=== PATIENT | male | born 1945 | race Caucasian/White ===

== ENCOUNTER 2018-02-05 08:32 | Inpatient (IN) ==
[2018-02-05] MEDS ORDERED: NS 3,000 ML ONE (09:05)
[2018-02-05] MEDS ORDERED: NS 1,000 ML IV ONE ×2 (09:10→10:34)
[2018-02-05 09:11] LABS: BE -0.1 mmoll (-3.0-3.0); BLOOD TYPE ARTERIAL; HCO3-(ACT) 24.8 mmoll (20.0-26.0); METHB 0.9 % (0.0-1.5); O2(CT) 15.4 mL/dL (15.0-23.0); PCO2(98.6) 44 mmHg (35-45); PO2(98.6) 77 mmHg (60-100); SAMPLE BLOOD; SAO2 97.7 % (95.0-100.0); THB 11.5 g/dL (11.5-17.4); pH(98.6) 7.37 (7.35-7.45)
[2018-02-05 09:12] LABS: MODALITY COOL AEROSOL
[2018-02-05 09:12] LABS: BASO# 0.01 X1000 (0.0-0.2); BASO% 0.1 % (0.0-0.8); HEMATOCRIT 39.9 % (42.0-52.0); HEMOGLOBIN 12.4 g/dL (14.0-18.0); IMM GRAN# 0.03 X1000 (0.0-0.04); IMM GRAN% 0.4 % (0.0-0.5); LYMPH# 0.52 X1000 (1.2-3.4); LYMPH% 6.6 % (20.5-51.1); MCHC 31.1 g/dL (33-37); MCV 102.8 FL (81-99); MONO# 0.33 X1000 (0.11-0.59); MONO% 4.2 % (1.7-9.3); NEUT# 7.02 X1000 (1.4-6.5); NEUT% 88.7 % (42.2-75.2); PLT 119 X1000 (130-400); RBC 3.88 XMIL (4.7-6.1); WBC 7.91 X1000 (4.8-10.8)
[2018-02-05 09:15] LABS: ALLEN TEST NO
--- NOTE | 2018-02-05 09:42 | Diag Imaging Result Doc PS360 ---
EXAM: CHEST-1 VIEW INDICATION: dislodged tracheostomy TECHNIQUE: One view COMPARISON: 01/28/2018 FINDINGS: The tracheostomy tube is in approximately stable position with the tip projecting over the trachea in the expected position. Fibrotic changes +/- atelectasis is noted at the lower lung zones bilaterally, more prominent on the left, stable. There is no well-defined pleural fluid collection or pneumothorax. Cardiac silhouette is borderline to mildly prominent but stable. IMPRESSION: Stable chest as compared to the previous study including the tracheostomy tube, which is in the expected position. Electronically signed by Zacarias Beverly 02/05/2018 9:40 AM
[2018-02-05] MEDS ORDERED: ZOSYN 3.375 GM in NS 50 ML IV ONE (11:25)
[2018-02-05] MEDS ORDERED: VANCOMYCIN 1 GM/NS 1 GM/250 ML IVPB IV ONE (11:26)
[2018-02-05 11:43] LABS: ALB/GLOB RATIO 1.2; ALBUMIN 2.6 g/dL (3.5-5.0); CREATININE 2.1 mg/dL (0.7-1.2); MAGNESIUM 1.4 mg/dL (1.5-2.7); POTASSIUM 4.3 mmol/L (3.5-5.1); TOTAL BILIRUBIN 0.66 mg/dL (0.20-1.00); TOTAL PROTEIN 4.8 g/dL (6.3-8.3)
[2018-02-05 11:46] LABS: INR 1.48; PROTIME 19.1 Seconds (11.0-16.0)
--- NOTE | 2018-02-05 12:17 | PROVIDER DOCUMENTATION ---
This chart was entered by Babita Montilla Scribe, acting as scribe for Benedict Paz MD. 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 Hx of larygneal cancer. Review of Systems - Adult - REVIEW OF SYSTEMS - ADULT Constitutional: denies: chills, fever, fatique Eyes: reports: no symptoms reported Ears, Nose, Mouth & Throat: reports: no symptoms reported Cardiovascular: denies: chest pain, irregular heart rate, orthopnea Respiratory: reports: see HPI, shortness of breath. denies: chronic cough, cough Gastrointestinal: denies: abdominal pain, diarrhea, nausea, vomiting Genitourinary: reports: no symptoms reported Musculoskeletal: reports: no symptoms reported Integumentary: reports: no symptoms reported Neurological: reports: no symptoms reported Psychiatric: reports: no symptoms reported Endocrine: reports: no symptoms reported Hematologic/Lymphatic: reports: no symptoms reported Allergic/Immunologic: reports: no symptoms reported All Other Systems: Reviewed and Negative Past History - Adult - PAST MEDICAL HISTORY-ADULT Review of Records: reports: Nursing Assessment Review, Medications Reviewed Cardiovascular: reports: CHF, HTN, [place] Respiratory: reports: cancer Neurological: reports: TIA - PRIOR SURGERIES/PROCEDURES Surgical/Procedure History: reports: cholecystectomy, other (tracheostomy placement) - IMMUNIZATION STATUS Childhood Immunizations: See Nurse Assessment Flu Vaccine: See Nurse Assessment - SOCIAL HISTORY Smoking: other (non applicable) Physical Exam-General - PHYSICAL EXAM-ADULT Initial Vital Signs Reviewed: Yes - CONSTITUTIONAL General Appearance: alert, moderate distress, thin. negative: appears well - EYES Eyes: PERRL/EOMI - NECK Neck: other (multiple deformities of the neck, open stoma with yellow green sputum) - RESPIRATORY Respiratory: decreased breath sounds, other (bilateral coarse breath sounds) - CARDIOVASCULAR Cardiovascular: regular rate, rhythm - GASTROINTESTINAL (ABDOMEN) Abdominal Exam: non tender, soft, no organomegaly - GENITOURINARY Male Genitalia: other (right sided hernia inguinal-scrotal) - MUSCULOSKELETAL Extremity: swelling (bilateral lower ext edema trace), other (bilateral upper ext spaticisty) - SKIN Integumentary: other (chronic erythematous changes in lower extremities) - NEUROLOGIC Neurologic: negative: horseshoer II-XII nml as tested, grossly normal - PSYCHIATRIC Psych/Mental Status: other (alert non verbal) Progress - PLAN OF CARE/RESULTS Progress/Plan/Lab Results: Vital Signs - 8 hr 02/05/18 08:41 02/05/18 09:00 02/05/18 09:10 Temperature 98.7 F Pulse Rate 101 H 96 H 95 H Respiratory Rate 21 22 16 Blood Pressure 203/175 68/42 71/44 O2 Sat by Pulse Oximetry 99 100 94 L Laboratory Results - last 24 hr 02/05/18 02/05/18 09:00 09:05 WBC 7.91 RBC 3.88 L Hgb 12.4 L Hct 39.9 L MCV 102.8 H MCH 32.0 H MCHC 31.1 L RDW Std Deviation 17.0 H Plt Count 119 L MPV 12.0 H Immature Gran % (Auto) 0.4 Neut % (Auto) 88.7 H Lymph % (Auto) 6.6 L [place] % (Auto) 4.2 Eos % (Auto) 0.0 Baso % (Auto) 0.1 Immature Gran # (Auto) 0.03 Neut # (Auto) 7.02 H Lymph # (Auto) 0.52 L [place] # (Auto) 0.33 Eos # (Auto) 0.00 Baso # (Auto) 0.01 Specimen Type ARTERIAL Sample Site R BRACHIAL pH 7.37 pCO2 44 pO2 77 HCO3 24.8 Base Excess -0.1 Oxyhemoglobin 95.0 ABG O2 Sat (Calculated) 15.4 ABG O2 Saturation 97.7 ABG Carboxyhemoglobin 1.90 ABG Methemoglobin 0.9 Len Test NO A-a O2 Difference 118.0 Total Hemoglobin 11.5 Lactate 1.00 Liter Flow 8.0 Blood Gas Modality COOL AEROSOL FiO2 % 35.0 Orders Category Date Time Status Misc. NRSG Communication Order DIRECTED Care 02/05/18 10:33 Active CHEST-1 VIEW [RAD] Stat Exams 02/05/18 08:33 Completed ABG [RESP] Routine Lab 02/05/18 09:05 Completed BLOOD CULTURE [BLDCUL] Stat Lab 02/05/18 10:50 Received CBC WITH ELECTRONIC DIFF [HEME] Stat Lab 02/05/18 09:00 Completed CK PROFILE [SP CHEM] Stat Lab 02/05/18 10:50 Received COMPREHENSIVE METABOLIC PANEL [CHEM] Stat Lab 02/05/18 10:50 Received LACTATE, PLASMA [CHEM] Stat Lab 02/05/18 10:50 Received MAGNESIUM [CHEM] Stat Lab 02/05/18 10:50 Received PRO B-NATRIURETIC PEPTIDE Stat Lab 02/05/18 10:50 Received PT [PROTIME WITH INR] [COAG] Stat Lab 02/05/18 10:50 Received PTT [COAG] Stat Lab 02/05/18 10:50 Received SPUTUM CULTURE WITH GRAM STAIN [RM] Stat Lab 02/05/18 11:26 Uncollected TROPONIN T Stat Lab 02/05/18 09:29 Ordered 0.9% Sodium Chloride Inj [Ns] 1,000 ml Med 02/05/18 09:05 Discontinued .ROUTE As Directed 0.9% Sodium Chloride Inj [Ns] 1,000 ml Med 02/05/18 09:10 Discontinued IV 999 mls/hr 0.9% Sodium Chloride Inj [Ns] 1,000 ml Med 02/05/18 10:34 Active IV 999 mls/hr Piperacillin/Tazobactam [Zosyn] 3.375 gm Med 02/05/18 11:25 Active 0.9% Sodium Chloride Inj [Ns] 50 ml IV NOW Vancomycin 1 gm/Ns Med 02/05/18 11:26 Active 1 gm in 250 ml IV NOW EKG [EKG] Stat Ther 02/05/18 08:34 Ordered Result Diagrams: 02/05/18 09:00 02/05/18 10:50 - REASSESSMENT Reassessment #1 Time Reassessed: 08:40 (Number 6 trach tube inserted with no complications. BP noted to decrease pt started on IV fluids.) Status: other Reassessment #2 Time Reassessed: 09:20 Status: worsening (patient noted hypotensive with SBP of 70; unable to get adequate peripheral IV access ; multiple surgical deformities in around anterior and lateral neck, as such a femoral IV access to be attempted) - CONSULTS/PCP/HOSPITALIST Notification #1 *Consult/PCP/Hospitalist*: RICK Patel/Dr. Baldwin Time Discussed: 12:10 Consult Disposition: Admit Procedures - CENTRAL LINE Consent Form Signed?: Yes Time-Out Verification Completed?: Yes Central Line Lumen: single Central Line Procedure Prep: Kit Utilized Patient Position (To prevent Air Embolism): Trendelenburg (SC/IJ) Central Line Position: femoral (L) Ultrasound Guided?: No Hat, mask, sterile gown, & sterile gloves worn by physician?: Yes Site scrubbed vigorously for 30 seconds? (Groin: 2 min): Yes Anesthetic: 1%, Lidocaine/Xylocaine Post Procedure: Sutured in place Complications: none Departure - Departure Date of Disposition Decision: 02/05/18 Time of Disposition Decision: 11:39 DIAGNOSIS: Tracheostomy complication Qualifiers: Tracheostomy complication: unspecified Qualified Code(s): J95.00 - Unspecified tracheostomy complication Hypotension Qualifiers: Hypotension type: unspecified hypotension type Qualified Code(s): I95.9 - Hypotension, unspecified Disposition: ADMITTED INPATIENT 09 Certified Medical Emergency: Emergent Condition: Critical Referrals and Follow-Ups: None,PCP [Primary Care Provider] - - Critical Care Note This patient required my direct & personal management of CC.: Yes Total Time (mins): 40 Critical Care Statement: This patient required my direct personal management to treat or rule out processes, the absence of which, could potentiallly result in sudden, clinically significant life or limb threatening deterioration. Attestation - Physician/ NATALI Attestation Patient care was provided by Advanced Practice Provider:: No The physician spent face to face time with patient:: Yes Advanced Practice Provider documentation review:: Supervising physician onsite and consulted in the evaluation and care of this patient. The physician did have a face to face encounter with the patient. This chart was documented by the indicated scribe, (Babita Montilla Scribe) and accurately reflects the services I performed and decisions made by me, Benedict Paz MD, as attested by the provider's signature.
[2018-02-05] MEDS: LEVOPHED 8 MG in D5 1/2 NS 250 ML IV SCH (12:43)
[2018-02-05] MEDS ORDERED: MAGNESIUM SULFATE 2 GM/S.W.I. 2 GM/50 ML IVPB IV ONE (13:21)
[2018-02-05] MEDS ORDERED: DUONEB (A & A) INH PRN (13:21)
[2018-02-05 14:00] LABS: URINE SOURCE CATH
[2018-02-05 14:11] LABS: BILIRUBIN URINE NEGATIVE (NEGATIVE); BLOOD URINE NEGATIVE (NEGATIVE); COLOR YELLOW; GLUCOSE URINE NEGATIVE (NEGATIVE); KETONE URINE NEGATIVE (NEGATIVE); LEUKOCYTES URINE NEGATIVE (NEGATIVE); NITRITE URINE NEGATIVE (NEGATIVE); PH URINE 5.5; PROTEIN URINE 30 mg/dL (NEGATIVE); SP GRAVITY URINE 1.015; TURBIDITY URINE CLEAR (CLEAR); UROBILINOGEN URINE NORMAL (NORMAL)
[2018-02-05] MEDS ORDERED: NS 1,000 ML ONE (14:12)
[2018-02-05 14:13] LABS: UR EPITHELIAL CELLS <10 /HPF (<10); URINE BACTERIA NEGATIVE /HPF; URINE WBC <10 /HPF (<10)
[2018-02-05 14:19] LABS: URINE CASTS NONE SEEN; URINE CRYSTALS NONE SEEN; URINE SMALL ROUND CELLS NONE SEEN; URINE YEAST PRESENT
[2018-02-05] MEDS: PROTONIX IV SCH (14:19)
[2018-02-05 14:20] LABS: PROTEIN CREAT RATIO 0.4; UR PROT RANDOM 41.3 mg/dL
[2018-02-05 14:36] LABS: BASO# 0.01 X1000 (0.0-0.2); BASO% 0.1 % (0.0-0.8); EOS# 0.01 X1000 (0.0-0.7); EOS% 0.1 % (0.0-10.0); HEMATOCRIT 34.1 % (42.0-52.0); HEMOGLOBIN 10.7 g/dL (14.0-18.0); IMM GRAN# 0.02 X1000 (0.0-0.04); IMM GRAN% 0.2 % (0.0-0.5); LYMPH# 1.17 X1000 (1.2-3.4); LYMPH% 14.3 % (20.5-51.1); MCH 32.6 PG (27-31); MCHC 31.4 g/dL (33-37); MONO# 0.34 X1000 (0.11-0.59); MONO% 4.2 % (1.7-9.3); MPV 11.8 FL (7.4-10.4); NEUT# 6.63 X1000 (1.4-6.5); NEUT% 81.1 % (42.2-75.2); PLT 107 X1000 (130-400); RBC 3.28 XMIL (4.7-6.1); RDW 17.1 % (11.5-14.5); WBC 8.18 X1000 (4.8-10.8)
[2018-02-05] MEDS ORDERED: VANCOMYCIN IV PER PHARMACY MISC SCH (14:45)
[2018-02-05 14:53] LABS: HEMOGLOBIN A1C 5.4 % (4.8-6.0)
[2018-02-05 14:57] LABS: CALCIUM 8.1 mg/dL (8.8-10.2); CREATININE 1.8 mg/dL (0.7-1.2); POTASSIUM 4.2 mmol/L (3.5-5.1)
[2018-02-05 15:01] LABS: FREE T4 0.83 ng/dL (0.93-1.70)
[2018-02-05] MEDS: SOLU-CORTEF IV SCH (15:02)
[2018-02-05 15:09] LABS: TSH 9.47 uIUmL (0.27-4.20)
--- NOTE | 2018-02-05 15:11 | Diag Imaging Result Doc PS360 ---
EXAM: FLAT/UPRIGHT ABD/1 VIEW CHEST INDICATION: post cvl placement, new hypotension TECHNIQUE: 3 views COMPARISON: 02/05/2018 FINDINGS: A right femoral central venous catheter is in place. And IVC filter is noted. There are unremarkable bowel gas and stool patterns. There is no obstructive bowel pattern. There is no evidence of large volume free abdominal gas. Fibrotic changes and atelectasis is unchanged as compared to the previous study. No new consolidation is identified. Tracheostomy tube is in stable position. Cardiac silhouette is stable. IMPRESSION: Stable chest and no definite acute abdominal pathology by plain radiograph. Electronically signed by Zacarias Beverly 02/05/2018 3:08 PM
--- NOTE | 2018-02-05 15:18 | HISTORY AND PHYSICAL ---
DATE OF ADMISSION: 02/05/2018. CHIEF COMPLAINT: Dislodged tracheostomy. HISTORY OF PRESENT ILLNESS: Mr. Gutierrez is a [id number]- male with a very complex medical history. History is obtained per chart review which came with him from [facility]. He has had multiple and prolonged stays at [facility] over the past six [address] elevation NE requiring stent placement. This was complicated by a retroperitoneal hematoma. He also has a history of laryngeal cancer and is status post tracheostomy multiple years ago. He has chronic respiratory failure and has been admitted to [facility] for pneumonia, acute on chronic respiratory failure, pseudomonas and H flu sepsis. He also has chronic kidney disease and is overall in extremely poor health. He has been residing at [facility] for the last two weeks since his last admission to [facility]. Today, he pulled out his tracheostomy tube, unclear as to exactly why. His [id number], who did accompany him to the hospital, states that he often pulls out medical equipment. It was noted in the ER that he had significant green and yellow sputum coming from the trach site. The tracheostomy was replaced successfully. However, he did start to become acutely hypotensive with his blood pressure ranging from 60-80 systolically. This has prompted a central line placement femorally by the ER physician, and he has been placed on Levophed for sepsis. Currently, his blood pressure is marginal. His chest x- ray does show questionable infiltrates bilaterally, and given his history, he is presumed septic from source of pneumonia. He is a full code at this time. He will be admitted to the ICU for further treatment and evaluation. PAST MEDICAL HISTORY: 1. Recent admission to [facility] for septic shock and H flu pneumonia as well as gram negative bacteremia. 2. Chronic respiratory failure. 3. History of non-small lung cancer and laryngeal cancer status post laryngectomy done at [facility] with current tracheostomy. 4. Chronic kidney disease, exact stage unknown. 5. Thrombocytopenia. 6. Recent history of left lower extremity DVT status post inferior vena cava filter placement because of thrombocytopenia. 7. Coronary artery disease with recent STEMI in October of 2017. 8. Chronic atrial fibrillation, not on anticoagulation secondary to thrombocytopenia. 9. Hypothyroidism. 10.Gastroesophageal reflux disease. 11.Probable COPD. 12.History of retroperitoneal hematoma earlier this year. PAST SURGICAL HISTORY: 1. He has had tracheostomy placement. 2. Stent placement. 3. Laryngectomy. 4. Placement of IVC filter. SOCIAL HISTORY: He currently resides at [facility]. His is . He does have three children, but they are not active in his life per the POA who is at the bedside. Apparently, he did have a history of tobacco use. FAMILY HISTORY: Noncontributory at this time. REVIEW OF SYSTEMS: Unable to obtain as the patient is nonverbal. HOME MEDICATIONS: Currently being compiled. ALLERGIES: NO KNOWN DRUG ALLERGIES. PHYSICAL EXAMINATION: VITAL SIGNS: Blood pressure is 95/64, heart rate 78, respiratory rate 18 and O2 saturation is 100% on 8 L of trach collar. Temperature is 98 degrees Fahrenheit. GENERAL: This is a chronically ill, disheveled and cachectic appearing 72-year- old- male lying in the hospital bed in no acute distress. NEUROLOGICAL: The patient is awake and alert. He will follow commands without focal deficits. He is nonverbal. HEENT: Normocephalic, atraumatic. Pupils are equal, round and reactive to light. Oral mucosa is dry. NECK: Supple. Trachea is midline. Tracheostomy site does have some green sputum around the edges. There is no overt erythema. There are healing wounds about the neck. Very small in size. CHEST: Coarse bilaterally. CV: Irregular rate and rhythm. S1, S2 noted. No appreciable murmurs. GI: Soft and nondistended. Bowel sounds are hypoactive. EXTREMITIES: Cool to touch. Pulses are palpable but diminished. He has 1+ edema bilaterally. DIAGNOSTIC DATA: Chest x-ray shows trach in expected position. Fibrotic changes, plus/minus atelectasis in the lower lung zones bilaterally, left greater than right. Cardiac silhouette is borderline to mildly prominent but stable. EKG showed atrial fibrillation with nonspecific ST and T changes. WBC 7.91, hemoglobin 12.4, hematocrit 39.9, MCV 102.8 and platelet count 119. INR 1.48. ABG on 35% trach collar showed a pH of 7.37, CO2 44 and O2 77 with a bicarb of 24.8. Sodium 147, potassium 4.3, chloride 110, CO2 24, anion gap 13, BUN 59, creatinine 2.1, glucose 75, calcium 8, phosphorous 3.9, magnesium 1.4, AST 13, ALT 16, alk phos 74, troponin 0.118, proBNP 8836, and albumin 2.6. Urine is negative for infection. There are yeast-like cells present. ASSESSMENT AND PLAN: 1. Hypotension, presumed septic shock. The patient has well documented history of multi strain bacteremia in the past and it is likely no different this time. However, given his cardiac history, would not rule out cardiac source. He is volume contracted, so we will continue IV fluids and pressors. Continue broad spectrum antibiotics with meropenem given the likelihood of multi drug resistant bacteremia. Will also add renal dosed Vanc for his possible MRSA. 2. Aspiration pneumonia. As above. 3. Acute kidney injury on chronic kidney disease. Baseline unknown. Will continue IV fluids and check renal ultrasound or abdomen CT to look for obstruction. Will hold off on renal consultation at this time until we have hydrated the patient and see if there is any improvement. 4. Coronary artery disease status post recent STEMI and stent placement. We are going to trend his enzymes and see if we can't find his latest EF. This was not on the records that came with him. 5. Chronic respiratory failure. Continue trach and oxygen. Will check ABGs and chest x-rays daily. At this time, there is no need to consult pulmonary, but this may change. 6. Thrombocytopenia. This appears to be a chronic issue likely exacerbated by current sepsis. The patient is slightly coagulopathic with an INR of 1.48 and hypoalbuminemic with thrombocytopenia. This does raise the question of chronic liver issues. We will see if he has a hepatitis panel done at [facility]. If not, we will draw one and trend his liver enzymes. Check a pneumonia and cortisol level. 7. History of deep vein thrombosis status post left lower extremity vena cava filter. Aware. Will hold off on any anticoagulation given the thrombocytopenia. 8. History of lung and laryngeal cancer. Aware. 9. Severe protein calorie malnutrition. We will add some IV albumin at this time. See if we can assist with intravascular oncotic pressure. This may help with overall volume repletion. 10.Deep vein thrombosis prophylaxis. It is contraindicated at this time. He does have a vena cava filter. CRITICAL CARE TIME: Greater than one hour and this includes documentation, review, speaking with the family and critical decision making. Dictated by BOB Ospina for Eliezer Baldwin MD cc: BOB Ospina MD I have seen and examined Mr Gutierrez today. No family was at the bedside. I have also reviewed his labs and imaging studies. I have reviewed his recent discharge summary from [facility]. Mr Gutierrez is very hypotensive, presumed septic from aspiration pneumonia. Will continue with broad spectrum antibiotics and IV fluids. Pending cultures results. I agree with the above HPI and the plan reflects my opinion discussed with the SENIOR DIRECTOR MARKETING. IRWIN MENDIOLA
[2018-02-05] MEDS ORDERED: SYNTHROID PO ONE (15:32)
[2018-02-05] MEDS: MERREM 500 MG in NS 50 ML IV SCH (15:47)
[2018-02-05] MEDS: DUONEB (A & A) INH SCH ×3 (15:57→23:16)
[2018-02-05] MEDS: NS 1,000 ML IV SCH (16:29)
[2018-02-05] MEDS ORDERED: VANCOMYCIN 500 MG/NS 500 MG/100 ML IVPB IV ONE (17:00)
[2018-02-06] MEDS: SOLU-CORTEF IV SCH ×4 (00:20→22:09)
[2018-02-06] MEDS ORDERED: STERILE WATER INJ. ONE (00:22)
[2018-02-06] MEDS: MERREM 500 MG in NS 50 ML IV SCH ×3 (00:22→15:55)
[2018-02-06] MEDS: DUONEB (A & A) INH SCH ×6 (03:15→23:06)
[2018-02-06 04:39] LABS: ALLEN TEST YES; BE -3.4 mmoll (-3.0-3.0); BLOOD TYPE ARTERIAL; HCO3-(ACT) 22.2 mmoll (20.0-26.0); METHB 1.2 % (0.0-1.5); O2(CT) 14.9 mL/dL (15.0-23.0); O2HB 95.3 % (95.0-99.0); PCO2(98.6) 44 mmHg (35-45); PO2(98.6) 90 mmHg (60-100); SAMPLE BLOOD; pH(98.6) 7.32 (7.35-7.45)
[2018-02-06 04:42] LABS: MODALITY COOL AEROSOL
[2018-02-06 04:46] LABS: INR 1.11; PROTIME 15.2 Seconds (11.0-16.0)
[2018-02-06] MEDS: NS 1,000 ML IV SCH ×2 (05:12→18:48)
[2018-02-06 05:13] LABS: HEMATOCRIT 32.1 % (42.0-52.0); HEMOGLOBIN 10.6 g/dL (14.0-18.0); LYMPH# 0.57 X1000 (1.2-3.4); LYMPH% 7.7 % (20.5-51.1); MCH 33.3 PG (27-31); MCV 100.9 FL (81-99); MONO# 0.13 X1000 (0.11-0.59); MONO% 1.8 % (1.7-9.3); MPV 11.9 FL (7.4-10.4); NEUT# 6.68 X1000 (1.4-6.5); NEUT% 90.5 % (42.2-75.2); PLT 103 X1000 (130-400); RBC 3.18 XMIL (4.7-6.1); RDW 16.8 % (11.5-14.5); WBC 7.38 X1000 (4.8-10.8)
[2018-02-06 05:17] LABS: MAGNESIUM 1.9 mg/dL (1.5-2.7)
[2018-02-06 05:38] LABS: FERRITIN 1521 ng/mL (30-400)
--- NOTE | 2018-02-06 06:35 | PROGRESS NOTE ---
DATE: 02/06/2018 SUBJECTIVE: This morning Mr. Gutierrez referred to be doing a whole lot better. He is actually requesting to be fed. OBJECTIVE: Vital Signs: Blood pressure is 104/56, pulses 81, respirations 16, and temperature is 97.7 degrees. The patient is saturating 98% on the trach collar at a flow of 30. She is currently on just about 3 mcg of Levophed. General: Mr. Gutierrez is a 72-year-old gentleman. He is in bed. He is not in any cardiopulmonary distress. Mucosa is pink and slightly dry. Anicteric. Acyanotic. Neck: Supple. Trach is in place. Chest: Air entry is bilaterally reduced. There are some fine crackles posteriorly in both lung noel. Cardiovascular: Regular rate and rhythm. No murmurs, no rubs, no gallops. Abdomen: Soft, and is nontender. Bowel sounds are present. There is no hepatosplenomegaly. Extremities: No pedal edema. The distal feet look slightly purplish with pulses remarkably reduced. CSM CONSULTANT: Patient is awake and alert follows commands. LABORATORY DATA: WBC is 7.38, hemoglobin is 10.6, and platelet count of 103,000. Chemistry is also reviewed. We are still awaiting the results. Troponin has come down to 0.90. Review of chest x-ray yesterday did show fibrotic changes plus minus atelectasis noted in the lower lung zones, more predominantly on the left. KUB still stable. CURRENT MEDICATIONS: 1. Hydrocortisone 100 mg IV q.8. 2. Levothyroxine 50 mcg daily. 3. Meropenem 500 q.8h. 4. Vancomycin per pharmacy protocol. 5. Pantoprazole 40 mg daily. ASSESSMENT: 1. Hypotensive on presentation presumed to be septic shock. The patient is currently on IV fluids and Levophed, which is being weaned down. The cultures have been done. We are still pending the reports. Patient is on broad-spectrum antibiotics. Suspected aspiration pneumonia. We will continue with the current antibiotics. 2. Acute on chronic hypoxemic respiratory failure. Patient is status post tracheostomy. I understand the trach was dislodged on presentation. However, they were able to put it back in the ER. 3. History of left lower extremity DVT status post vena cava filter. 4. History of lung and laryngeal cancer aware. 5. Severe protein calorie malnutrition. 6. History of coronary artery disease. Patient is status post stent placement in his recent admission to [place]. Troponin's were a little bit elevated on presentation. I presume they were probably related to demand ischemia. They have normalized. PLAN: In general, Mr. Grant came in initially because his tube was dislodged. After, it was taken care of he was found to be hypoxemic and hypotensive. He has been admitted for presumed septic shock. Blood pressures are fairly stable weaning off on the Levophed. Blood cultures and cultures from the trach aspirations are all still pending. We will continue with their broad- spectrum coverage until we have culture results and go from there. I think in the next 24 hours if Mr. Gutierrez continues to be stable, we might be able to transfer him from the ICU to a regular floor. cc: Eliezer Baldwin MD
[2018-02-06 06:36] LABS: LYMPHS 4 % (21-51); MONO 2 % (1-9); SEGS 94 % (42-75)
[2018-02-06] MEDS: SYNTHROID PO SCH (06:44)
[2018-02-06] MEDS ORDERED: SYNTHROID PO ONE (06:45)
[2018-02-06] MEDS ORDERED: SYNTHROID PO SCH (07:00)
--- NOTE | 2018-02-06 07:03 | Diag Imaging Result Doc PS360 ---
EXAM: CHEST-PORTABLE 02/06/2018 HISTORY: chronic resp failure TECHNIQUE: AP portable at 0503 COMMENT: There is increased volume loss and opacification on the left compared to 02/05/2018. There is ill-defined opacity in the right upper lobe and in the right base which has also worsened. IMPRESSION: Worsened atelectasis and/or pneumonia as described. Electronically signed by Tomi Jiang 02/06/2018 7:01 AM
[2018-02-06] MEDS: LANOXIN PO SCH (08:15)
[2018-02-06] MEDS: ASPIRIN PO SCH (08:15)
[2018-02-06] MEDS: DITROPAN PO SCH ×2 (09:30→22:09)
[2018-02-06] MEDS: SODIUM CHLORIDE 0.9% INJ SCH (13:35)
[2018-02-06] MEDS: PROTONIX IV SCH (13:35)
[2018-02-07] MEDS: MERREM 500 MG in NS 50 ML IV SCH ×4 (00:08→23:26)
[2018-02-07] MEDS: DUONEB (A & A) INH SCH ×6 (03:09→22:58)
[2018-02-07 05:30] LABS: ALLEN TEST YES; BE -4.4 mmoll (-3.0-3.0); BLOOD TYPE ARTERIAL; HCO3-(ACT) 21.5 mmoll (20.0-26.0); METHB 1.1 % (0.0-1.5); O2(CT) 13.1 mL/dL (15.0-23.0); O2HB 97.3 % (95.0-99.0); PCO2(98.6) 34 mmHg (35-45); PO2(98.6) 132 mmHg (60-100); SAMPLE BLOOD; SAO2 100.1 % (95.0-100.0); THB 9.4 g/dL (11.5-17.4); pH(98.6) 7.38 (7.35-7.45)
[2018-02-07 05:31] LABS: MODALITY COOL AEROSOL
[2018-02-07 05:52] LABS: HEMATOCRIT 27.7 % (42.0-52.0); HEMOGLOBIN 9.1 g/dL (14.0-18.0); IMM GRAN# 0.02 X1000 (0.0-0.04); IMM GRAN% 0.3 % (0.0-0.5); LYMPH# 0.52 X1000 (1.2-3.4); LYMPH% 7.9 % (20.5-51.1); MCH 34.2 PG (27-31); MCHC 32.9 g/dL (33-37); MCV 104.1 FL (81-99); MONO# 0.23 X1000 (0.11-0.59); MONO% 3.5 % (1.7-9.3); MPV 12.1 FL (7.4-10.4); NEUT# 5.79 X1000 (1.4-6.5); NEUT% 88.3 % (42.2-75.2); PLT 95 X1000 (130-400); RBC 2.66 XMIL (4.7-6.1); RDW 16.6 % (11.5-14.5); WBC 6.56 X1000 (4.8-10.8)
[2018-02-07 05:54] LABS: INR 1.14; PROTIME 15.6 Seconds (11.0-16.0)
[2018-02-07] MEDS: SOLU-CORTEF IV SCH ×3 (06:15→23:26)
[2018-02-07] MEDS: SYNTHROID PO SCH (06:15)
[2018-02-07] MEDS: NS 1,000 ML IV SCH ×2 (08:05→20:37)
[2018-02-07] MEDS: DITROPAN PO SCH ×2 (08:06→20:37)
[2018-02-07] MEDS: LANOXIN PO SCH (08:06)
[2018-02-07] MEDS: ASPIRIN PO SCH (08:06)
--- NOTE | 2018-02-07 08:40 | Diag Imaging Result Doc PS360 ---
EXAM: CHEST-PORTABLE INDICATION: chronic resp failure TECHNIQUE: One view COMPARISON: 02/06/2018 FINDINGS: The tracheostomy tube is in stable position. Volume loss and opacification of much of the left hemithorax is unchanged. Consolidation in the right upper lung zone and right lung base is also stable. No new consolidation is identified. Cardiac silhouette is stable. IMPRESSION: Essentially stable chest. Electronically signed by Zacarias Beverly 02/07/2018 8:37 AM
[2018-02-07] MEDS: SODIUM CHLORIDE 0.9% INJ SCH (13:59)
[2018-02-07] MEDS: PROTONIX IV SCH (13:59)
[2018-02-07] MEDS ORDERED: VANCOMYCIN 1,250 MG in NS 250 ML IV SCH (17:00)
--- NOTE | 2018-02-07 17:54 | PROGRESS NOTE ---
DATE: 02/07/2018 SUBJECTIVE: The patient is resting comfortably in bed. Not in any obvious distress. OBJECTIVE: Vital Signs: Temperature 98.3, pulse 99, blood pressure 134/77, oxygen 98%. HEENT: Atraumatic, normocephalic. He does have a trach in place. Cardiovascular: S1, S2. Respiratory: Has evidence of good air entry bilaterally. Abdomen: Soft, nontender. No masses felt. Extremities: Patient does have erythematous changes involving both feet. Central Nervous System: No obvious focal deficits noted. LABS: WBC is 6.56, hematocrit 27.7, with a platelet count of 95,000. ABG 7.38/ 84/132/100.1%. X-ray chest shows consolidation in the right upper lung zone as well as right lung base. ASSESSMENT AND PLAN: 1. Acute respiratory failure. X-ray of chest shows evidence of pneumonic changes. Continue current antibiotic regimen. Follow up on sputum as well as blood cultures. Continue trach. Oxygen the patient keeps as above 90. 2. Septic shock. Continue pressors and also IV fluids. Continue antibiotics. 3. History of lung as well as laryngeal cancer. Aware. 4. History of coronary disease. Aware. 5. History of DVT left lower extremity status post IVC filter. 6. DVT prophylaxis. SCD. 7. GI prophylaxis. PPI. cc: Bill Joy MD MTDD
[2018-02-08] MEDS: DUONEB (A & A) INH SCH ×6 (03:02→23:26)
[2018-02-08 04:45] LABS: ALLEN TEST YES; BE -4.7 mmoll (-3.0-3.0); BLOOD TYPE ARTERIAL; HCO3-(ACT) 21.2 mmoll (20.0-26.0); O2(CT) 15.5 mL/dL (15.0-23.0); O2HB 96.2 % (95.0-99.0); PCO2(98.6) 41 mmHg (35-45); PO2(98.6) 91 mmHg (60-100); SAMPLE BLOOD; SAO2 98.9 % (95.0-100.0); THB 11.4 g/dL (11.5-17.4); pH(98.6) 7.32 (7.35-7.45)
[2018-02-08 04:46] LABS: MODALITY COOL AEROSOL
[2018-02-08 05:26] LABS: INR 1.14; PROTIME 15.5 Seconds (11.0-16.0)
[2018-02-08 05:31] LABS: HEMOGLOBIN 9.8 g/dL (14.0-18.0); LYMPH# 0.47 X1000 (1.2-3.4); LYMPH% 7.1 % (20.5-51.1); MCH 33.7 PG (27-31); MCHC 32.7 g/dL (33-37); MCV 103.1 FL (81-99); MONO# 0.27 X1000 (0.11-0.59); MONO% 4.1 % (1.7-9.3); MPV 12.1 FL (7.4-10.4); NEUT# 5.84 X1000 (1.4-6.5); NEUT% 88.8 % (42.2-75.2); PLT 91 X1000 (130-400); RBC 2.91 XMIL (4.7-6.1); RDW 16.7 % (11.5-14.5); WBC 6.58 X1000 (4.8-10.8)
[2018-02-08 05:38] LABS: AGAP 12; ALB/GLOB RATIO 1.1; ALBUMIN 2.7 g/dL (3.5-5.0); ALKALINE PHOSPHATASE 78 U/L (32-122); BUN 30 mg/dL (8-22); CALCIUM 7.6 mg/dL (8.8-10.2); CHLORIDE 114 mmol/L (98-107); COSMO 297; ESTIMATED GFR > 60; GLUCOSE 102 mg/dL (70-104); GOT 13 U/L (10-34); GPT 16 U/L (10-44); POTASSIUM 4.4 mmol/L (3.5-5.1); SODIUM 146 mmol/L (136-145); TCO2 20 mmol/L (25-35); TOTAL BILIRUBIN 0.59 mg/dL (0.20-1.00); TOTAL PROTEIN 5.1 g/dL (6.3-8.3)
[2018-02-08 05:51] LABS: LYMPHS 12 % (21-51); MONO 12 % (1-9); SEGS 76 % (42-75)
[2018-02-08] MEDS: SOLU-CORTEF IV SCH ×3 (06:15→23:00)
[2018-02-08] MEDS: SYNTHROID PO SCH (06:17)
--- NOTE | 2018-02-08 07:14 | Diag Imaging Result Doc PS360 ---
EXAM: CHEST-PORTABLE 02/08/2018 HISTORY: chronic resp failure TECHNIQUE: AP portable at 0534 COMMENT: There is a left pleural effusion which has apparently increased in volume since the previous study of 02/07/2018. There is still volume loss with shift of the mediastinum to the left and presumably there is atelectasis of most of the left lung with some aeration remaining in the left apex. This has also worsened since the previous study. There is interstitial opacity throughout much of the right lung particularly in the base. This was also present previously. IMPRESSION: 1. Worsened left pleural effusion and left lung atelectasis. 2. Stable pulmonary edema. Electronically signed by Tomi Jiang 02/08/2018 7:12 AM
[2018-02-08] MEDS: ASPIRIN PO SCH (09:16)
[2018-02-08] MEDS: NS 1,000 ML IV SCH ×2 (09:16→10:34)
[2018-02-08] MEDS: DITROPAN PO SCH ×2 (09:16→20:30)
[2018-02-08] MEDS: LANOXIN PO SCH (09:16)
[2018-02-08] MEDS: MERREM 500 MG in NS 50 ML IV SCH ×3 (09:16→23:01)
[2018-02-08] MEDS: CARDIZEM 100 MG/NS 100 MG/100 ML IVPB IV SCH (11:00)
--- NOTE | 2018-02-08 13:31 | EKG Report ---
Test Performed on : 02/08/2018 10:30:25 AM Test Reason : NO EKG ORDER FOR MUSE Blood Pressure : / mmHG Vent. Rate : 124 BPM Atrial Rate : 141 BPM P-R Int : 000 ms QRS Dur : 066 ms QT Int : 262 ms P-R-T Axes : 000 033 036 degrees QTc Int : 376 ms Atrial fibrillation. with rapid ventricular response. with premature ventricular or aberrantly conduc pamela complexes. Low voltage QRS Septal infarct , age undetermined Abnormal ECG When compared with ECG of 28-JAN-2018 11:22, (Unconfirmed) Nonspecific T wave abnormality now evident in Lateral leads (too much artifact to be sure) Confirmed by Nick LINDSAY, Eduardo Melchor ([id number]) on 02/08/2018 5:37:47 PM
[2018-02-08] MEDS: PROTONIX IV SCH (14:00)
--- NOTE | 2018-02-08 14:49 | PROGRESS NOTE ---
DATE: 02/08/2018 SUBJECTIVE: Patient is resting in bed. OBJECTIVE: Vital Signs: Temperature 97.9 degrees, pulse 102, respiratory rate is 23, blood pressure is 146/95, oxygen saturation is 97%. HEENT: Patient is atraumatic, normocephalic. Neck: He does have a trach in place. Cardiovascular System: S1, S2. Respiratory System: No rales or rhonchi noted. Abdomen: Soft, nontender. No masses felt. Extremities: No evidence of edema. Central Nervous System: No obvious focal deficits noted. Labs: WBCs 6.58, hematocrit 30.0, with a platelet count of 91,000. Sodium is 146, potassium 4.4, chloride 114, bicarb 20, BUN is 30, creatinine is 1.0. ABG 7.32/41/91/98.9%. ASSESSMENT AND PLAN: 1. Acute respiratory failure. The patient does have a trach in place. Continue antibiotics for pneumonia. Follow up on blood cultures. Maintain patient on oxygen to keep saturations above 90. 2. Septic shock. Continue pressors as well as intravenous fluids. Continue antibiotics. 3. Atrial fibrillation with rapid ventricular rate. The patient is currently on a Cardizem infusion at 5 mg per hour. Consult cardiology. 4. Coronary artery disease. Aware. 5. History of lung as well as laryngeal cancer. Aware. 6. History of deep vein thrombosis in the left lower extremity, status post inferior vena cava filter. 7. Deep vein thrombosis prophylaxis. Sequential compression devices. 8. Gastrointestinal prophylaxis. Proton pump inhibitor. cc: Bill Joy MD
[2018-02-08] MEDS: VANCOMYCIN 1,400 MG in NS 250 ML IV SCH (18:00)
[2018-02-08] MEDS ORDERED: CALMOSEPTINE OINTMENT TOP PRN (18:48)
[2018-02-09] MEDS: NS 1,000 ML IV SCH ×2 (00:49→12:35)
[2018-02-09] MEDS: CARDIZEM 100 MG/NS 100 MG/100 ML IVPB IV SCH (02:56)
[2018-02-09 03:13] LABS: HEMOGLOBIN 10.2 g/dL (14.0-18.0)
[2018-02-09 03:26] LABS: HEMATOCRIT 32.5 % (42.0-52.0); HEMOGLOBIN 10.3 g/dL (14.0-18.0); IMM GRAN# 0.06 X1000 (0.0-0.04); IMM GRAN% 0.6 % (0.0-0.5); LYMPH# 0.32 X1000 (1.2-3.4); LYMPH% 3.1 % (20.5-51.1); MCH 32.5 PG (27-31); MCHC 31.7 g/dL (33-37); MCV 102.5 FL (81-99); MONO# 0.26 X1000 (0.11-0.59); MONO% 2.5 % (1.7-9.3); MPV 12.2 FL (7.4-10.4); NEUT# 9.59 X1000 (1.4-6.5); NEUT% 93.8 % (42.2-75.2); PLT 98 X1000 (130-400); RBC 3.17 XMIL (4.7-6.1); RDW 16.9 % (11.5-14.5); WBC 10.23 X1000 (4.8-10.8)
[2018-02-09 03:29] LABS: AGAP 11; ALB/GLOB RATIO 1.1; ALBUMIN 2.8 g/dL (3.5-5.0); ALKALINE PHOSPHATASE 83 U/L (32-122); BUN 28 mg/dL (8-22); CALCIUM 8.1 mg/dL (8.8-10.2); CHLORIDE 113 mmol/L (98-107); COSMO 296; ESTIMATED GFR > 60; GLUCOSE 106 mg/dL (70-104); GOT 13 U/L (10-34); GPT 17 U/L (10-44); POTASSIUM 4.6 mmol/L (3.5-5.1); SODIUM 146 mmol/L (136-145); TCO2 22 mmol/L (25-35); TOTAL BILIRUBIN 0.68 mg/dL (0.20-1.00); TOTAL PROTEIN 5.4 g/dL (6.3-8.3)
[2018-02-09] MEDS: DUONEB (A & A) INH SCH ×6 (03:30→23:13)
[2018-02-09 05:08] LABS: ALLEN TEST YES; BE -6.6 mmoll (-3.0-3.0); BLOOD TYPE ARTERIAL; HCO3-(ACT) 19.6 mmoll (20.0-26.0); METHB 0.7 % (0.0-1.5); O2(CT) 12.6 mL/dL (15.0-23.0); PCO2(98.6) 50 mmHg (35-45); PO2(98.6) 55 mmHg (60-100); SAMPLE BLOOD; THB 10.3 g/dL (11.5-17.4); pH(98.6) 7.23 (7.35-7.45)
[2018-02-09 05:10] LABS: MODALITY COOL AEROSOL; O2HB 86.9 % (95.0-99.0)
[2018-02-09] MEDS: SYNTHROID PO SCH (05:59)
[2018-02-09] MEDS: SOLU-CORTEF IV SCH ×3 (05:59→23:54)
--- NOTE | 2018-02-09 06:50 | Diag Imaging Result Doc PS360 ---
EXAM: CHEST-1 VIEW HISTORY: pneumonia TECHNIQUE: Portable chest single view COMPARISON: 02/08/2018 FINDINGS: Tracheostomy tube is in good position. Interval improvement in the aeration within the left lung. There are infiltrates in the right lung. Heart remains prominent and there are small pleural effusions. IMPRESSION: Overall interval improvement on the left. Electronically signed by Ren Ortega 02/09/2018 6:47 AM
[2018-02-09] MEDS ORDERED: HALDOL IM PRN (07:41)
[2018-02-09] MEDS ORDERED: HALDOL IM ONE (07:50)
[2018-02-09] MEDS: ASPIRIN PO SCH ×2 (08:19→08:22)
[2018-02-09] MEDS: DITROPAN PO SCH ×3 (08:19→20:29)
[2018-02-09] MEDS: LANOXIN PO SCH (08:19)
[2018-02-09] MEDS: MERREM 500 MG in NS 50 ML IV SCH ×3 (08:27→23:54)
[2018-02-09] MEDS: PROTONIX IV SCH (12:30)
[2018-02-09] MEDS: HALDOL IM PRN (12:30)
--- NOTE | 2018-02-09 12:47 | PROGRESS NOTE ---
DATE: 02/09/2018 SUBJECTIVE: The patient resting in bed. He is sedated. OBJECTIVE: Vital signs: Temperature 98.3 degrees, pulse 90, respirations 20, blood pressure 142/75, oxygen saturation is 92%. HEENT: He is atraumatic, normocephalic. He does have a tracheostomy in place with lots of secretions noted. Cardiovascular: S1, S2. Respiratory system: Good air entry bilaterally. Abdomen: Soft, nontender. No masses felt. He does have a right inguinal hernia. Extremities: Patient no evidence of edema. Central nervous system: The patient is sedated. LABS: WBC 10.23, hematocrit 31, with a platelet count of 98,000. ABG 7.23/50/55/86.9%. Sodium is 146, potassium 4.6, chloride 113, bicarb 22, BUN is 28, creatinine 1.0. X-ray of the chest shows interval improvement in aeration, right and left lungs. There are infiltrates in the right lung. ASSESSMENT AND PLAN: 1. Acute respiratory failure. The patient does have a tracheostomy. The patient does require frequent suctioning because of secretions within the trachea itself. Maintain patient on oxygen, keep sats above 90. Continue antibiotics for pneumonia. 2. Atrial fibrillation with rapid ventricular rate. Heart rate is controlled. We can transition to an oral rate controlling agent. 3. Coronary artery disease. Aware. 4. History of lung as well as laryngeal cancer. Aware. 5. History of deep venous thrombosis in the left lower extremity status post inferior vena cava filter. Aware. Deep venous thrombosis prophylaxis. Sequential compression devices. 6. Gastrointestinal prophylaxis. Proton pump inhibitor. cc: Bill Joy MD
[2018-02-09] MEDS: ROBINUL IV SCH ×2 (13:21→21:25)
[2018-02-09] MEDS ORDERED: CARDIZEM 100 MG/NS 100 MG/100 ML IVPB IV SCH (14:30)
[2018-02-09] MEDS: DIPRIVAN 1% 1,000 MG/100 ML BOTTLE IV SCH ×3 (15:18→23:54)
--- NOTE | 2018-02-09 16:36 | Diag Imaging Result Doc PS360 ---
EXAM: US SCROTUM INDICATION: Scrotal swelling TECHNIQUE: COMPARISON: None. FINDINGS: The testicles are normal in echotexture with no discrete mass or cyst identified. Both testicles exhibit normal Doppler flow. The right testicle measures 3.3 cm and the left testicle measures 3.6 cm in the greatest dimensions. The left epididymis is unremarkable. The right epididymis was not visualized by the drop hammer setter up. There is a moderate-sized right scrotal hydrocele. There is trace scrotal fluid on the left. IMPRESSION: Moderate-sized right scrotal hydrocele and trace scrotal fluid on the left. The testicles are grossly normal in echotexture. Electronically signed by Zacarias Beverly 02/09/2018 4:34 PM
[2018-02-09] MEDS: VANCOMYCIN 1,400 MG in NS 250 ML IV SCH (17:20)
[2018-02-09] MEDS: LEVOPHED 8 MG in D5 1/2 NS 250 ML IV SCH (18:22)
[2018-02-10] MEDS: DUONEB (A & A) INH SCH ×6 (03:24→23:03)
[2018-02-10] MEDS: ROBINUL IV SCH ×3 (03:59→19:59)
[2018-02-10] MEDS: NS 1,000 ML IV SCH ×2 (03:59→15:47)
[2018-02-10] MEDS: DIPRIVAN 1% 1,000 MG/100 ML BOTTLE IV SCH ×5 (03:59→21:40)
--- NOTE | 2018-02-10 04:29 | CARDIOLOGY CONSULTATION ---
DATE: 02/09/2018 CHIEF COMPLAINT: Dislodged tracheostomy when he came in. HISTORY OF PRESENT ILLNESS: Mr. Gutierrez is a 72-year-old white male with a history of tracheostomy. He has had multiple prolonged stays in the hospital, one with an ST-elevation [place]. He carries a history of chronic atrial fibrillation. He has a tracheostomy in place. He apparently has suffered an aspiration pneumonia, and currently is on the ventilator and nonresponsive. He is on Diprivan. In addition to the above history, he has lung, as well as laryngeal cancer. Again the patient is not able to provide any sort of history presently. PAST MEDICAL HISTORY: 1. Through chart review, is significant for recent admission to [facility] for septic shock, as well as with pneumonia, and Gram negative deanne bacteremia. He apparently had a ST- elevation [place] in October 2016. However, I do not have records relative to this presently. 2. Chronic atrial fibrillation, with an avoidance of anticoagulation, secondary to thrombocytopenia. 3. Hypothyroidism. 4. Chronic kidney disease. 5. Ssy-vyzyv-asla lung cancer, with laryngeal cancer, with recent laryngectomy done at [facility], and current tracheostomy. 6. COPD. 7. Recent retroperitoneal hematoma. SOCIAL HISTORY: Currently lives at [facility]. His is apparently . He has 3 children, but apparently none are active in his current life. He has a cjrzw-sg-gssgxfly. Previous history of tobacco use. FAMILY HISTORY AND REVIEW OF SYSTEMS: Unable to be obtained, secondary to patient's current intubated status. PHYSICAL EXAMINATION: Vital Signs: He is afebrile. His heart rate is currently in the low 80s to low 100s. His blood pressure is 94/48. Most of his systolics have been anywhere from the 100s to 140s recently. General: He is in no acute distress. He is an ill-appearing white male, somewhat disheveled. HEENT: Oropharynx is moist. Poor dentition. Neck: Examination shows a tracheostomy in place, with significant post surgical changes noted. Cardiovascular: Shows an irregularly irregular rhythm. It is rate controlled. He is currently in atrial fibrillation. He has no lower extremity edema. He has warm and well-perfused lower extremities. Chest: Sounds clear bilaterally. He has no increased work of breathing. Abdomen: Soft, nontender, nondistended. He has no obvious organomegaly. Skin: Warm and dry throughout, without any rashes. Neurologic: He is moving all extremities well. He has no lateralizing deficits. Neuro and psych examinations are unable to be performed, secondary to patient's current intubated and sedated status. LABORATORY STUDIES: His EKG shows atrial fib, rate of 124 beats per minute. A very low voltage is noted. His laboratory data shows a white count of 10.2, hematocrit 31, platelet count is 98,000. His ABG shows a pH of 7.23, with a lactate of 1.7. His pCO2 is 50. His sodium is 146, potassium 4.6, BUN 28, creatinine 1. His albumin is 2.8. ASSESSMENT: Mr. Gutierrez is a 72-year-old gentleman, with a very complex recent medical history. He has a history of chronic atrial fibrillation and myocardial infarction. PLAN: At this point, I do not have any acute recommendations. He seems to be stable from a cardiovascular standpoint, with rate controlled atrial fibrillation. He is not a long-term anticoagulation candidate secondary to comorbidities. Please contact us if we can be of further assistance with the patient. I would continue him on rate-controlling medications. cc: Abel Anthony MD
[2018-02-10 04:36] LABS: ALLEN TEST YES; BE -4.3 mmoll (-3.0-3.0); BLOOD TYPE ARTERIAL; HCO3-(ACT) 21.6 mmoll (20.0-26.0); METHB 1.2 % (0.0-1.5); O2(CT) 11.9 mL/dL (15.0-23.0); O2HB 96.5 % (95.0-99.0); PCO2(98.6) 43 mmHg (35-45); PO2(98.6) 117 mmHg (60-100); SAMPLE BLOOD; SAO2 98.7 % (95.0-100.0); SRATE 12 BPM; THB 8.6 g/dL (11.5-17.4); TVOL 500 mL; pH(98.6) 7.31 (7.35-7.45)
[2018-02-10 04:37] LABS: MODALITY VENTILATOR
--- NOTE | 2018-02-10 05:40 | CONSULTATION ---
DATE OF CONSULTATION: 02/09/2018 REQUESTING PROVIDER: BOB Thomas. REASON FOR CONSULTATION: Hypoxic respiratory failure, tracheostomy, and pneumonia. HISTORY OF PRESENT ILLNESS: This is a 72-year-old male with a medical history of chronic respiratory failure, wlk-fngjo-kwxd lung cancer and laryngeal cancer, chronic kidney disease, thrombocytopenia, recent left lower extremity DVT, coronary artery disease, chronic atrial fibrillation, hypothyroidism, gastroesophageal reflux disease, and probable COPD. He was recently admitted to [facility] for septic shock and H flu pneumonia as well as gram- negative bacteremia, who presented to the ER on February 05, 2018 from [facility] with dislodged tracheostomy. Per the H and P, he pulled out his tracheotomy. After the tracheotomy was replaced, patient acutely developed hypertension. He has been admitted to the ICU for presumed septic shock, aspiration pneumonia, and acute kidney injury on chronic kidney disease. At the time of my exam, the patient is restless and moaning with eyes closed. He is not answering any question. He is not following any commands. There is no family at bedside. PAST MEDICAL AND SURGICAL HISTORY: 1. Chronic respiratory failure. 2. Taj-nxpgi-tmtg lung cancer and laryngeal cancer, status post laryngectomy with tracheostomy. 3. Chronic kidney disease. 4. Thrombocytopenia. 5. Recent left lower extremity DVT status post inferior vena cava filter placement. 6. Coronary artery disease with recent ST-elevation [place], status post stent placement in October 2017. 7. Chronic atrial fibrillation, not on anticoagulant secondary to thrombocytopenia. 8. Hypothyroidism. 9. Gastroesophageal reflux disease. 10. Probable COPD. SOCIAL HISTORY: Per E chart, the patient currently lives in [facility]. His is . He has a history of tobacco use. FAMILY HISTORY: Unable to be obtained. ALLERGIES: No known drug allergies. REVIEW OF SYSTEMS: Unable to be obtained. PHYSICAL EXAMINATION: Vital Signs: Temperature is 98.3, blood pressure 103/89 , pulse 88, respiratory rate 19, oxygen saturation 88% on cool aerosol. General: Chronically ill appearing, restless, and moaning with eyes closed. HEENT: Trachea midline with tracheostomy. Mucosa pink and moist. Respiratory: Diminished breathing sounds bilaterally with prolonged expiratory phase and rhonchi noted. Cardiovascular: Regular rate and rhythm. Gastrointestinal: Soft, nondistended. Normoactive bowel sounds in all 4 quadrants. Extremities: No pedal edema, slightly purplish and cold to touch on both feet. A wound covered with eschar on the dorsal surface of the right foot noted. Neurologic: Patient is restless and moaning with eyes closed. He is not answering questions or following commands at this time. LAB DATA: White blood cells 10.23, hemoglobin 10.3, hematocrit 32.5, platelet 98,000. Sodium 146, potassium 4.6, chloride 114, carbon dioxide 22, BUN 28, creatinine 1.0, glucose 106. ABG: pH 7.23, pCO2 50, pO2 of 55, HCO3 in 19.6, base excess -6.6, and oxyhemoglobin 86.9. IMAGING DATA: Chest x-ray reveals overall interval improvement in the aeration within the left lung, infiltrates in the right lung, prominent heart, and small pleural effusions. ASSESSMENT: This is a 72-year-old male with a medical history of chronic respiratory failure, okw-lpdoq-edxj lung cancer and laryngeal cancer, chronic kidney disease , thrombocytopenia, recent left lower extremity deep venous thrombosis, coronary artery disease, chronic atrial fibrillation, hypothyroidism, gastroesophageal reflux disease, and probable chronic obstructive pulmonary disease. He has been admitted to the ICU for presumed septic shock, aspiration pneumonia, and acute kidney injury on chronic kidney disease. 1. Acute hypoxic respiratory failure on chronic respiratory failure. 2. Aspiration pneumonia. PLAN: 1. Continue antibiotics and bronchodilators as prescribed. 2. Consider AC mechanical ventilator. 3. Routine ABG, CBC, BMP and chest x-ray. 4. Continue GI and DVT prophylaxis. Thank you for the courtesy of this consult. Dictated by BOB Griffin for Lindsey Hernandez MD cc: BOB Griffin MD [facility]
[2018-02-10] MEDS: SOLU-CORTEF IV SCH ×2 (07:16→15:47)
[2018-02-10] MEDS: SYNTHROID PO SCH (07:16)
[2018-02-10] MEDS: MERREM 500 MG in NS 50 ML IV SCH ×2 (08:19→15:47)
--- NOTE | 2018-02-10 08:41 | CONSULTATION ---
DELETE Dictated by BOB Griffin for Lindsey Hernandez MD cc: BOB Griffin MD [facility] [place]
[2018-02-10] MEDS: LANOXIN PO SCH (08:58)
[2018-02-10] MEDS: ASPIRIN PO SCH (08:58)
[2018-02-10] MEDS: DITROPAN PO SCH ×2 (08:58→22:38)
[2018-02-10] MEDS: PROTONIX IV SCH (12:32)
[2018-02-10] MEDS: SODIUM CHLORIDE 0.9% INJ SCH (12:32)
[2018-02-10] MEDS ORDERED: NS 1,000 ML IV SCH (14:45)
--- NOTE | 2018-02-10 16:48 | PROGRESS NOTE ---
DATE: 02/10/2017 SUBJECTIVE: Patient currently intubated as well as sedated. OBJECTIVE: Vital Signs: Temperature 97.1 degrees, pulse 76, respiration 13, blood pressure 92/52, oxygen saturation is 100%. HEENT: Patient is atraumatic, normocephalic, currently intubated via his tracheostomy. Cardiovascular: S1, S2. Respiratory: Good entry bilaterally. Abdomen: Soft, nontender, no masses felt. Extremities: No evidence of edema. Central nervous system: No obvious focal deficits noted. LABS: None. ABG 7.31/43/117/98.7%. ASSESSMENT AND PLAN: 1. Acute respiratory failure. Continue vent support. Pulmonary managing . 2. Atrial fibrillation. Cardiology managing. 3. Coronary artery disease aware. 4. Pneumonia. Continue antibiotics. 5. History of lung as well as laryngeal cancer. Aware. 6. History of deep vein thrombosis status post inferior vena cava filter. 7. Deep vein thrombosis prophylaxis SCD. 8. Gastrointestinal prophylaxis PPI. cc: Bill Joy MD
[2018-02-11] MEDS: MERREM 500 MG in NS 50 ML IV SCH ×4 (00:07→23:03)
[2018-02-11] MEDS: SOLU-CORTEF IV SCH ×4 (00:07→22:51)
[2018-02-11] MEDS: DUONEB (A & A) INH SCH ×6 (03:32→23:29)
[2018-02-11] MEDS: NS 1,000 ML IV SCH ×3 (03:34→22:51)
[2018-02-11] MEDS: DIPRIVAN 1% 1,000 MG/100 ML BOTTLE IV SCH ×3 (03:34→11:30)
[2018-02-11 05:10] LABS: ALLEN TEST YES; BE -5.1 mmoll (-3.0-3.0); BLOOD TYPE ARTERIAL; HCO3-(ACT) 20.9 mmoll (20.0-26.0); METHB 1.1 % (0.0-1.5); O2(CT) 13.2 mL/dL (15.0-23.0); O2HB 93.4 % (95.0-99.0); PCO2(98.6) 35 mmHg (35-45); PO2(98.6) 69 mmHg (60-100); SAMPLE BLOOD; SRATE 12 BPM; TVOL 500 mL; pH(98.6) 7.36 (7.35-7.45)
[2018-02-11 05:12] LABS: MODALITY VENTILATOR
[2018-02-11 05:14] LABS: HEMATOCRIT 29.1 % (42.0-52.0); HEMOGLOBIN 9.6 g/dL (14.0-18.0); LYMPH% 3.6 % (20.5-51.1); MCV 103.2 FL (81-99); MONO# 0.15 X1000 (0.11-0.59); MONO% 1.8 % (1.7-9.3); MPV 12.7 FL (7.4-10.4); NEUT# 7.95 X1000 (1.4-6.5); NEUT% 94.6 % (42.2-75.2); PLT 80 X1000 (130-400); RBC 2.82 XMIL (4.7-6.1); RDW 16.8 % (11.5-14.5)
[2018-02-11 05:28] LABS: AGAP 11; ALB/GLOB RATIO 1.1; ALBUMIN 2.3 g/dL (3.5-5.0); BUN 23 mg/dL (8-22); CALCIUM 7.9 mg/dL (8.8-10.2); CHLORIDE 118 mmol/L (98-107); COSMO 300; CREATININE 0.8 mg/dL (0.7-1.2); ESTIMATED GFR > 60; GLUCOSE 100 mg/dL (70-104); GOT 10 U/L (10-34); GPT 11 U/L (10-44); POTASSIUM 3.8 mmol/L (3.5-5.1); SODIUM 149 mmol/L (136-145); TCO2 20 mmol/L (25-35); TOTAL BILIRUBIN 0.59 mg/dL (0.20-1.00); TOTAL PROTEIN 4.3 g/dL (6.3-8.3)
[2018-02-11] MEDS: ROBINUL IV SCH ×3 (05:30→20:58)
[2018-02-11 06:48] LABS: ALKALINE PHOSPHATASE 69 U/L (32-122)
--- NOTE | 2018-02-11 07:09 | Diag Imaging Result Doc PS360 ---
EXAM: CHEST-1 VIEW 02/11/2018 HISTORY: pneumonia TECHNIQUE: AP portable at 0551 COMMENT: There is some alveolar opacification in the right apex. This has improved slightly since 02/09/2018. The alveolar opacity in the right base has almost completely cleared. There is still apparent atelectasis and/or fibrosis in the left lung. There may be slight improvement in pneumatization in the left lower lobe. The patient is rotated slightly to the left and there is some volume loss on the left with shift of the mediastinum. IMPRESSION: Improved right upper and lower lobe pneumonia. Electronically signed by Tomi Jiang 02/11/2018 7:07 AM
[2018-02-11] MEDS: SODIUM CHLORIDE 0.9% INJ PRN (07:11)
[2018-02-11] MEDS: SYNTHROID IV SCH (07:11)
[2018-02-11] MEDS: ASPIRIN PO SCH (10:09)
[2018-02-11] MEDS: DITROPAN PO SCH ×2 (10:10→20:15)
[2018-02-11] MEDS: LANOXIN PO SCH (10:10)
[2018-02-11] MEDS: PROTONIX IV SCH (12:45)
--- NOTE | 2018-02-11 14:21 | Diag Imaging Result Doc PS360 ---
EXAM: CHEST/ABD TUBE PLACEMENT 02/11/2018 HISTORY: ngt placement TECHNIQUE: AP chest and abdomen for NG tube placement COMMENT: There is an NG tube with its tip in the left upper quadrant presumably in the stomach. There is a tracheostomy tube. There is opacification of the lateral left base which was also present at the time the previous study. IMPRESSION: NG tube in the stomach. Electronically signed by Tomi Jiang 02/11/2018 2:19 PM
[2018-02-11 16:44] LABS: ALLEN TEST YES; BE -4.3 mmoll (-3.0-3.0); BLOOD TYPE ARTERIAL; HCO3-(ACT) 21.6 mmoll (20.0-26.0); MODALITY VENTILATOR; O2(CT) 14.1 mL/dL (15.0-23.0); O2HB 96.9 % (95.0-99.0); PCO2(98.6) 31 mmHg (35-45); PO2(98.6) 107 mmHg (60-100); SAMPLE BLOOD; SAO2 99.6 % (95.0-100.0); THB 10.2 g/dL (11.5-17.4); pH(98.6) 7.41 (7.35-7.45)
[2018-02-12] MEDS: DUONEB (A & A) INH SCH ×6 (03:06→23:37)
[2018-02-12] MEDS: ROBINUL IV SCH ×3 (04:44→21:12)
[2018-02-12 05:59] LABS: ALLEN TEST YES; BE -5.3 mmoll (-3.0-3.0); BLOOD TYPE ARTERIAL; HCO3-(ACT) 20.7 mmoll (20.0-26.0); O2(CT) 16.2 mL/dL (15.0-23.0); O2HB 94.2 % (95.0-99.0); PCO2(98.6) 32 mmHg (35-45); PO2(98.6) 76 mmHg (60-100); SAMPLE BLOOD; THB 12.2 g/dL (11.5-17.4); pH(98.6) 7.38 (7.35-7.45)
[2018-02-12 06:00] LABS: MODALITY VENTILATOR
[2018-02-12] MEDS: SYNTHROID IV SCH (07:34)
[2018-02-12] MEDS: MERREM 500 MG in NS 50 ML IV SCH ×2 (07:34→15:02)
[2018-02-12] MEDS: SOLU-CORTEF IV SCH ×3 (07:35→22:32)
[2018-02-12] MEDS: NS 1,000 ML IV SCH ×4 (08:12→22:32)
[2018-02-12] MEDS: LANOXIN PO SCH (08:52)
[2018-02-12] MEDS: DITROPAN PO SCH (08:52)
[2018-02-12] MEDS: ASPIRIN PO SCH (08:52)
[2018-02-12] MEDS ORDERED: LANOXIN NG SCH (10:00)
--- NOTE | 2018-02-12 10:41 | PROGRESS NOTE ---
DATE: 02/11/2018 SUBJECTIVE: The patient is a 72-year-old male who currently is intubated and sedated. The staff does note that he has had bowel coming out of his mouth. He does not presently have an N/G tube. OBJECTIVE: Vital signs: He is afebrile, pulse 73, respiratory rate 14, blood pressure 93/53. General: The patient is currently intubated via his tracheostomy. He is sedated. HEENT: Normocephalic, atraumatic. Neck: No JVD noted. CV: Regular rate. No murmurs. Chest: Good air movement bilaterally. No current wheezing. No crackles. Abdomen: Soft with no apparent masses. Extremities: He has no evidence of edema. Neurological: Unable to assess as the patient is currently sedated. ASSESSMENT: 1. We will attempt placing an N/G tube. 2. Acute respiratory failure. Currently is on mechanical ventilation. 3. Atrial fibrillation. As per cardiology. 4. Known coronary artery disease. 5. Pneumonia. Currently is on antibiotics. PLAN: Will continue current care. Place an N/G tube. Follow. CRITICAL CARE TIME: Greater than 30 minutes. cc: Sulaiman Robert MD MTDD
[2018-02-12] MEDS: ASPIRIN NG SCH (11:35)
[2018-02-12] MEDS: LANOXIN NG SCH (11:36)
[2018-02-12] MEDS ORDERED: VANCOMYCIN 1 GM/NS 1 GM/250 ML IVPB IV SCH (14:00)
[2018-02-12] MEDS: PROTONIX IV SCH (14:59)
--- NOTE | 2018-02-12 15:34 | PROGRESS NOTE ---
DATE: 02/12/2018 INTERVAL HISTORY: The patient remains intubated, but off sedation. Following most commands. Respiratory status appears to be improving slowly. Afebrile and no acute events overnight. No other acute events overnight. REVIEW OF SYSTEMS: Unable to obtain secondary to patient intubation. LABORATORY: ABG with pH 7.38, pCO2 32, PO2 76, O2 saturation 97 on 30% FiO2 with mechanical ventilation. BMP pending. VITAL SIGNS: T-max 98 degrees, pulse 97, respirations 10, blood pressure 135/84 , and O2 saturation 100% on ventilator. PHYSICAL EXAMINATION: General: No acute distress. Intubated via trach. Off sedation, following most commands. Vitals: As above. HEENT: Tracheostomy in place. Normocephalic, atraumatic. Moist mucous membranes. No cervical adenopathy. Cardiovascular: Irregular but normal rate. No murmurs noted. Pulmonary: A few scattered rhonchi, but lungs largely clear to auscultation bilaterally. Abdomen: Soft, nontender, nondistended. Bowel sounds decreased but present. Extremities: Peripheral pulses decreased but intact. No clubbing, cyanosis, or edema. Neurologic: Cranial nerves 2-12 grossly intact. No focal deficits identified. Psychiatric: The patient is nonverbal, but awake, alert, and following commands. Answers yes/no questions appropriately. Normal mood and affect. Skin: No new rashes or lesions noted. ASSESSMENT AND PLAN: 1. Dioxp-za-swxvkuy hypoxic respiratory failure secondary to pneumonia and underlying chronic obstructive pulmonary disease. Remains on the ventilator via trach currently , but oxygen much improved and may be able to do CPAP trial later to assess readiness for extubation. Continue antibiotics with vancomycin and Merrem. Continue nebulizers. 2. Atrial fibrillation. Reasonable control currently with diltiazem. Continue to monitor heart rate and rhythm. Patient not on anticoagulation because of recent retroperitoneal hematoma. 3. Hypothyroidism. Continue Synthroid. 4. Chronic kidney disease 3. Creatinine stable for last few days. Continue to monitor. 5. Hypertension. Holding home blood pressure medications given previous hypotension. Largely normotensive currently. 6. Coronary artery disease. Continue aspirin. 7. Deep vein thrombosis prophylaxis. SCDs given recent retroperitoneal hematoma. [facility]
[2018-02-12 16:41] LABS: AGAP 11; BUN 22 mg/dL (8-22); CALCIUM 7.4 mg/dL (8.8-10.2); CHLORIDE 118 mmol/L (98-107); COSMO 298; CREATININE 0.7 mg/dL (0.7-1.2); ESTIMATED GFR > 60; GLUCOSE 74 mg/dL (70-104); POTASSIUM 3.8 mmol/L (3.5-5.1); SODIUM 149 mmol/L (136-145); TCO2 20 mmol/L (25-35)
[2018-02-12] MEDS ORDERED: CORDARONE 150 MG/D5W ONE (19:00)
[2018-02-12] MEDS ORDERED: EPINEPHRINE SYRINGE ONE (19:00)
[2018-02-12] MEDS ORDERED: CORDARONE 150 MG/D5W 150 MG/100 ML IV.SOLN IV ONE (19:21)
[2018-02-12] MEDS ORDERED: CORDARONE 360 MG/D5W 360 MG/200 ML IV.SOLN IV ONE (19:21)
[2018-02-12 19:54] LABS: BASO# 0.01 X1000 (0.0-0.2); BASO% 0.1 % (0.0-0.8); HEMATOCRIT 32.6 % (42.0-52.0); HEMOGLOBIN 10.6 g/dL (14.0-18.0); IMM GRAN# 0.04 X1000 (0.0-0.04); IMM GRAN% 0.4 % (0.0-0.5); LYMPH% 4.6 % (20.5-51.1); MCH 32.9 PG (27-31); MCHC 32.5 g/dL (33-37); MCV 101.2 FL (81-99); MONO% 1.9 % (1.7-9.3); MPV 12.1 FL (7.4-10.4); NEUT# 10.06 X1000 (1.4-6.5); PLT 82 X1000 (130-400); RBC 3.22 XMIL (4.7-6.1); RDW 17.2 % (11.5-14.5); WBC 10.81 X1000 (4.8-10.8)
[2018-02-12 20:13] LABS: AGAP 13; BUN 22 mg/dL (8-22); CALCIUM 7.8 mg/dL (8.8-10.2); CHLORIDE 117 mmol/L (98-107); COSMO 301; CREATININE 0.7 mg/dL (0.7-1.2); ESTIMATED GFR > 60; GLUCOSE 89 mg/dL (70-104); MAGNESIUM 1.7 mg/dL (1.5-2.7); PHOSPHORUS 2.9 mg/dL (2.7-4.5); POTASSIUM 3.9 mmol/L (3.5-5.1); SODIUM 150 mmol/L (136-145); TCO2 20 mmol/L (25-35)
[2018-02-12 20:25] LABS: BANDS 1 % (0-1); LYMPHS 1 % (21-51); SEGS 98 % (42-75)
[2018-02-13] MEDS: MERREM 500 MG in NS 50 ML IV SCH ×3 (00:06→17:12)
[2018-02-13] MEDS ORDERED: CORDARONE 540 MG in D5W 289.2 ML IV ONE (01:21)
[2018-02-13] MEDS: DUONEB (A & A) INH SCH ×6 (03:06→23:04)
[2018-02-13] MEDS: ROBINUL IV SCH ×3 (04:16→19:46)
[2018-02-13] MEDS: NS 1,000 ML IV SCH ×4 (04:18→19:46)
[2018-02-13 04:41] LABS: ALLEN TEST YES; BE -4.9 mmoll (-3.0-3.0); BLOOD TYPE ARTERIAL; HCO3-(ACT) 21.1 mmoll (20.0-26.0); O2HB 96.3 % (95.0-99.0); PCO2(98.6) 34 mmHg (35-45); PO2(98.6) 94 mmHg (60-100); SAMPLE BLOOD; SAO2 98.6 % (95.0-100.0); SRATE 14 BPM; TVOL 500 mL; pH(98.6) 7.37 (7.35-7.45)
[2018-02-13 04:42] LABS: MODALITY VENTILATOR
[2018-02-13 05:19] LABS: HEMATOCRIT 28.7 % (42.0-52.0); HEMOGLOBIN 9.7 g/dL (14.0-18.0); LYMPH# 0.31 X1000 (1.2-3.4); LYMPH% 3.8 % (20.5-51.1); MCH 35.5 PG (27-31); MCHC 33.8 g/dL (33-37); MCV 105.1 FL (81-99); MONO% 2.5 % (1.7-9.3); MPV 12.3 FL (7.4-10.4); NEUT# 7.59 X1000 (1.4-6.5); NEUT% 93.7 % (42.2-75.2); PLT 77 X1000 (130-400); RBC 2.73 XMIL (4.7-6.1); RDW 18.3 % (11.5-14.5)
[2018-02-13 05:25] LABS: AGAP 13; BUN 25 mg/dL (8-22); CALCIUM 7.9 mg/dL (8.8-10.2); CHLORIDE 120 mmol/L (98-107); COSMO 304; CREATININE 0.8 mg/dL (0.7-1.2); ESTIMATED GFR > 60; GLUCOSE 85 mg/dL (70-104); SODIUM 151 mmol/L (136-145); TCO2 18 mmol/L (25-35)
--- NOTE | 2018-02-13 06:09 | Diag Imaging Result Doc PS360 ---
EXAM: CHEST-1 VIEW HISTORY: vent TECHNIQUE: Chest single view COMPARISON: 02/11/2018 FINDINGS: A nasogastric tube has been placed which overlies the esophagus and stomach. Tracheostomy tube is unchanged. Pulmonary edema is more pronounced. There are small bilateral pleural effusions. The heart is mildly prominent. IMPRESSION: Worsening pulmonary edema with small pleural effusions Electronically signed by Ren Ortega 02/13/2018 6:06 AM
[2018-02-13] MEDS: SOLU-CORTEF IV SCH ×2 (06:23→14:12)
[2018-02-13] MEDS: SYNTHROID IV SCH (06:23)
--- NOTE | 2018-02-13 07:04 | EKG Report ---
Test Performed on : 02/12/2018 7:34:19 PM Test Reason : v tach Blood Pressure : / mmHG Vent. Rate : 092 BPM Atrial Rate : 087 BPM P-R Int : 000 ms QRS Dur : 064 ms QT Int : 316 ms P-R-T Axes : 000 084 141 degrees QTc Int : 390 ms Atrial fibrillation. with premature ventricular or aberrantly conducted complexes. Low voltage QRS Abnormal ECG When compared with ECG of 12-FEB-2018 19:33, (Unconfirmed) No significant change was found Confirmed by Nick LINDSAY, Eduardo Melchor ([id number]) on 02/13/2018 10:04:12 PM
[2018-02-13] MEDS: ASPIRIN NG SCH (09:10)
[2018-02-13] MEDS: LANOXIN NG SCH (09:10)
--- NOTE | 2018-02-13 12:07 | EKG Report ---
Test Performed on : 02/13/2018 11:43:20 AM Test Reason : afib Blood Pressure : / mmHG Vent. Rate : 080 BPM Atrial Rate : 074 BPM P-R Int : 000 ms QRS Dur : 058 ms QT Int : 314 ms P-R-T Axes : 000 079 045 degrees QTc Int : 362 ms Atrial fibrillation. with premature ventricular or aberrantly conducted complexes. Low voltage QRS Abnormal ECG When compared with ECG of 12-FEB-2018 19:34, (Unconfirmed) No significant change was found Confirmed by Nick LINDSAY, Eduardo Melchor ([id number]) on 02/13/2018 10:29:21 PM
[2018-02-13] MEDS: PROTONIX IV SCH (14:12)
--- NOTE | 2018-02-13 15:36 | PROGRESS NOTE ---
DATE: 02/13/2018 SUBJECTIVE: The patient is currently intubated as well as sedated. OBJECTIVE: Vital signs: Temperature 98.2 degrees, pulse 79, respirations 14, blood pressure 136/76, oxygen saturation 100%. HEENT: Atraumatic, normocephalic. Cardiovascular: S1, S2. Respiratory system: Evidence of good air entry bilaterally. Abdomen: Soft, nontender. No masses felt. Extremities: No evidence of edema. Central nervous system: No obvious focal deficits noted. LABORATORY DATA: WBC 8.0, hematocrit 28.7, platelet count 77,000. AB.37/34/94/96.3. Sodium 141, potassium 4.0, chloride 120, bicarb 18, BUN 25, creatinine 0.8. INCOMPLETE REPORT - DICTATION ENDS HERE. cc: Bill Joy MD
--- NOTE | 2018-02-13 15:39 | PROGRESS NOTE ---
DATE: 02/13/2018 SUBJECTIVE: The patient is currently intubated and sedated. OBJECTIVE: Vital signs: Temperature 98.2 degrees, pulse 79, respirations 14, blood pressure 136/66, oxygen saturation 100%. HEENT: Atraumatic, normocephalic. Cardiovascular System: S1, S2. Respiratory System: Evidence of good air entry bilaterally. Abdomen: Soft, nontender. No masses felt. Extremities: No evidence of edema. Central nervous system: The patient is currently sedated. LABORATORY DATA: WBC 8.1, hematocrit 28.7, platelet count 77,000. AB.37/34/94/98.6. Sodium 141, potassium 4.0, chloride 120, bicarb 18, BUN 25, creatinine 0.8. ASSESSMENT AND PLAN: 1. Acute respiratory failure. The patient does have a tracheostomy in place and has been ventilated via his tracheostomy. Will continue ventilator support and make changes based on the patient's ABG. Pulmonary team following. 2. Atrial fibrillation. Cardiology following. 3. Coronary artery disease. Aware. 4. Pneumonia. Continue antibiotics. 5. History of lung as well as laryngeal cancer. Aware. 6. History of deep venous thrombosis, status post inferior vena cava filter placement. 7. Deep venous thrombosis prophylaxis. Sequential compression devices. 8. Gastrointestinal prophylaxis. Proton pump inhibitor. cc: Bill Joy MD
[2018-02-13] MEDS ORDERED: MAGNESIUM SULFATE 2 GM/S.W.I. 2 GM/50 ML IVPB IV ONE (15:48)
--- NOTE | 2018-02-13 16:21 | CARDIOLOGY PROGRESS NOTE ---
DATE: 02/13/2018 SUBJECTIVE: Mr. Gutierrez looks better today than he did the last time I saw him last week. He continues on the ventilator. He is awake. He answers questions with head nod. He has no pain complaints. PHYSICAL EXAMINATION: Vital Signs: The patient is afebrile presently. His heart rates are in the 80s to low 100s. Blood pressure 137/71. General: No acute distress. Ill-appearing. Cardiovascular: He sounds to be in a regular rate and rhythm. He has no obvious murmurs and no S3. Warm and well perfused extremities with no edema. Chest: Exam sounds clear. Somewhat difficult study secondary to the patient's body habitus. Mechanical breath sounds are heard throughout all lung noel. Abdomen: Soft, nontender. PERTINENT DATA: His lab data shows white count 8.1, hematocrit 28. Platelet count is 77,000. His sodium is 151, potassium 4, BUN 25, creatinine 0.8. Mag level 1.7. ASSESSMENT: Mr. Gutierrez is a 72-year-old male who suffered an aspiration pneumonia. PLAN: I will replete his magnesium. I will initiate metoprolol at 25 q.6. It did appear via review of his notes from last night that he suffered an episode of ventricular tachycardia that was symptomatic resulting in an apparent episode of syncope. He converted spontaneously without any sort of ACLS medications or procedures being done. No shock was administered. Will continue him on the amiodarone for now. I will check a troponin in the morning. cc: Abel Anthony MD
[2018-02-13] MEDS ORDERED: MISC. PHARMACY COMMUNICATION SCH (19:45)
[2018-02-13] MEDS: LOPRESSOR PO SCH (19:46)
[2018-02-13] MEDS: HALDOL IM PRN (19:46)
[2018-02-13] MEDS: CORDARONE 360 MG/D5W 360 MG/200 ML IV.SOLN IV SCH (20:11)
[2018-02-14] MEDS: MERREM 500 MG in NS 50 ML IV SCH ×3 (00:14→16:30)
[2018-02-14] MEDS: SOLU-CORTEF IV SCH ×4 (00:14→22:35)
[2018-02-14] MEDS: NS 1,000 ML IV SCH ×4 (00:15→23:12)
[2018-02-14] MEDS: LOPRESSOR PO SCH ×3 (02:33→14:27)
[2018-02-14] MEDS: VANCOMYCIN 1 GM/NS 1 GM/250 ML IVPB IV SCH (03:11)
[2018-02-14] MEDS: DUONEB (A & A) INH SCH ×6 (03:32→23:02)
[2018-02-14] MEDS: ROBINUL IV SCH ×3 (03:41→20:50)
[2018-02-14 05:41] LABS: ALLEN TEST YES; BE -6.5 mmoll (-3.0-3.0); BLOOD TYPE ARTERIAL; HCO3-(ACT) 19.8 mmoll (20.0-26.0); METHB 0.7 % (0.0-1.5); O2(CT) 19.9 mL/dL (15.0-23.0); O2HB 96.8 % (95.0-99.0); PCO2(98.6) 34 mmHg (35-45); PO2(98.6) 109 mmHg (60-100); SAMPLE BLOOD; SAO2 98.7 % (95.0-100.0); SRATE 14 BPM; THB 14.5 g/dL (11.5-17.4); TVOL 500 mL; pH(98.6) 7.34 (7.35-7.45)
[2018-02-14 05:43] LABS: MODALITY VENTILATOR
[2018-02-14 05:45] LABS: HEMATOCRIT 28.7 % (42.0-52.0); HEMOGLOBIN 9.4 g/dL (14.0-18.0); LYMPH# 0.31 X1000 (1.2-3.4); LYMPH% 3.6 % (20.5-51.1); MCH 33.8 PG (27-31); MCHC 32.8 g/dL (33-37); MCV 103.2 FL (81-99); MONO# 0.25 X1000 (0.11-0.59); MONO% 2.9 % (1.7-9.3); MPV 12.6 FL (7.4-10.4); NEUT# 8.05 X1000 (1.4-6.5); NEUT% 93.5 % (42.2-75.2); PLT 80 X1000 (130-400); RBC 2.78 XMIL (4.7-6.1); RDW 17.4 % (11.5-14.5); WBC 8.61 X1000 (4.8-10.8)
[2018-02-14 06:10] LABS: AGAP 12; BUN 23 mg/dL (8-22); CALCIUM 7.7 mg/dL (8.8-10.2); CHLORIDE 118 mmol/L (98-107); COSMO 297; CREATININE 0.6 mg/dL (0.7-1.2); ESTIMATED GFR > 60; GLUCOSE 83 mg/dL (70-104); MAGNESIUM 2.1 mg/dL (1.5-2.7); POTASSIUM 3.6 mmol/L (3.5-5.1); SODIUM 148 mmol/L (136-145); TCO2 18 mmol/L (25-35)
[2018-02-14] MEDS: SYNTHROID IV SCH (06:10)
--- NOTE | 2018-02-14 07:31 | Diag Imaging Result Doc PS360 ---
EXAM: CHEST-1 VIEW 02/14/2018 HISTORY: ngt placement and vent TECHNIQUE: AP portable at 0510 COMMENT: There is pleural thickening and/or loculated effusion on the left. This appears slightly worse than on the previous study of 02/13/2018. The NG tube which was present previously has been removed. There is improvement in the interstitial pulmonary opacities over the right lung particularly in the base and the entire hemidiaphragm is now visible. IMPRESSION: Improved pulmonary edema. Electronically signed by Tomi Jiang 02/14/2018 7:29 AM
[2018-02-14 07:32] LABS: BANDS 4 % (0-1); SEGS 96 % (42-75)
[2018-02-14] MEDS: CORDARONE 360 MG/D5W 360 MG/200 ML IV.SOLN IV SCH (08:44)
[2018-02-14] MEDS: LANOXIN NG SCH (08:45)
[2018-02-14] MEDS: ASPIRIN NG SCH (08:45)
[2018-02-14] MEDS: PROTONIX IV SCH (14:06)
--- NOTE | 2018-02-14 15:30 | CARDIOLOGY PROGRESS NOTE ---
DATE: 02/14/2018 SUBJECTIVE: Mr. Gutierrez is on O2 via his trach. He is currently not on the ventilator. His NG tube is removed. He has passed a swallowing study. PHYSICAL EXAMINATION: He is afebrile. His heart rate is in the 60s to 70s. Blood pressure is 141/94. Generally: No acute distress. Ill-appearing. Cardiovascularly, he sounds to be in a regular rate and rhythm. He does not have any murmurs. He has no S3. He has no lower extremity edema. He is minimally cool bilateral lower extremities. His chest exam has coarse breath sounds throughout. Lots of upper airway noise, as well as trach noise. No increased work of breathing. His abdomen is soft, nontender. PERTINENT DATA: His chest x-ray shows evidence of improvement in his pulmonary edema. His white count is 8.6. His hematocrit is 28. His platelet count is 80,000. He has a left shift with a mild bandemia. His ABG was reviewed. His sodium is slightly improved at 148 with a BUN of 23, creatinine 0.6. His magnesium level is 2.1. His troponin is 0.067. ASSESSMENT: Mr. Gutierrez is a 72-year-old gentleman with an aspiration pneumonia, chronic atrial fibrillation. In addition, he has a history of ventricular tachycardia occurring during this hospitalization with previous ST-elevation [place]. PLAN: We will continue to treat him medically. He is on an aspirin. In addition, we will switch him from IV amiodarone over to oral. We have him on a beta-neymar as well. We will continue on those medications for the time being. cc: Abel Anthony MD
[2018-02-14] MEDS: HALDOL IM PRN (17:45)
--- NOTE | 2018-02-14 17:50 | PROGRESS NOTE ---
DATE: 02/14/2018 SUBJECTIVE: The patient is resting comfortably. He states that he does not have any complaints. OBJECTIVE: Vital Signs: Temperature 98, blood pressure 118/72, heart rate 70, respiratory rate 12, O2 sats 100% on a trach collar. General: This is a chronically ill- appearing elderly male lying in bed in no acute distress. Heart: S1, S2 normal. Regular rate and rhythm. Lungs: Coarse breath sounds with rhonchi bilaterally. Abdomen: Positive bowel sounds. Soft, nontender, nondistended. Extremities: 1+ edema bilaterally. Neurologic: The patient is awake and alert. LABS: Sodium 148, potassium 3.6, chloride 118, CO2 18, BUN 23, creatinine 0.6, glucose 89. ASSESSMENT AND PLAN: 1. Acute on chronic hypoxemic respiratory failure. The patient has been weaned off of the ventilator and is currently on a trach collar. Further management as per the psychiatric arnp. 2. Atrial fibrillation. Continue on amiodarone as directed by the cocoa roaster. 3. History of recent retroperitoneal hematoma. Aware. 4. Hypothyroidism. Continue on Synthroid. 5. Pulmonary edema. Improved. We will continue to monitor the patient's respiratory status closely. 6. Coronary artery disease. Aware. 7. Hypernatremia. Improved. We will continue to monitor the sodium closely. 8. Laryngeal cancer s/p laryngectomy. The patient has a tracheostomy. 9. Non small cell lung cancer. Aware. 10. GI prophylaxis. Continue on IV Protonix. 11. DVT prophylaxis. Continue with SCDs. cc: Lilian Regan MD [facility]
[2018-02-14] MEDS ORDERED: CORDARONE 360 MG/D5W 360 MG/200 ML IV.SOLN IV ONE (19:23)
[2018-02-14] MEDS ORDERED: CORDARONE PO SCH (21:00)
[2018-02-14] MEDS ORDERED: CORDARONE 540 MG in D5W 289.2 ML IV ONE (22:00)
[2018-02-15] MEDS: MERREM 500 MG in NS 50 ML IV SCH ×3 (01:05→16:34)
[2018-02-15] MEDS ORDERED: CORDARONE 540 MG in D5W 289.2 ML IV ONE (01:23)
[2018-02-15] MEDS: DUONEB (A & A) INH SCH ×6 (03:07→23:05)
[2018-02-15] MEDS: NS 1,000 ML IV SCH (04:52)
[2018-02-15] MEDS: ROBINUL IV SCH ×3 (04:52→20:55)
[2018-02-15 05:31] LABS: ALLEN TEST YES; BE -5.8 mmoll (-3.0-3.0); BLOOD TYPE ARTERIAL; HCO3-(ACT) 20.4 mmoll (20.0-26.0); METHB 1.1 % (0.0-1.5); O2HB 97.1 % (95.0-99.0); PCO2(98.6) 30 mmHg (35-45); PO2(98.6) 135 mmHg (60-100); SAMPLE BLOOD; SAO2 99.6 % (95.0-100.0); SRATE 14 BPM; THB 10.8 g/dL (11.5-17.4); TVOL 500 mL; pH(98.6) 7.39 (7.35-7.45)
[2018-02-15 05:32] LABS: MODALITY VENTILATOR
[2018-02-15] MEDS: SYNTHROID IV SCH (06:21)
[2018-02-15] MEDS: SODIUM CHLORIDE 0.9% INJ PRN (06:22)
[2018-02-15] MEDS: SOLU-CORTEF IV SCH ×3 (06:23→21:06)
[2018-02-15 06:38] LABS: HEMATOCRIT 28.1 % (42.0-52.0); HEMOGLOBIN 9.3 g/dL (14.0-18.0); IMM GRAN# 0.02 X1000 (0.0-0.04); IMM GRAN% 0.2 % (0.0-0.5); LYMPH# 0.34 X1000 (1.2-3.4); LYMPH% 3.6 % (20.5-51.1); MCH 34.4 PG (27-31); MCHC 33.1 g/dL (33-37); MCV 104.1 FL (81-99); MONO# 0.28 X1000 (0.11-0.59); MONO% 2.9 % (1.7-9.3); MPV 12.7 FL (7.4-10.4); NEUT# 8.86 X1000 (1.4-6.5); NEUT% 93.3 % (42.2-75.2); PLT 76 X1000 (130-400); RDW 17.5 % (11.5-14.5)
[2018-02-15 06:58] LABS: AGAP 10; BUN 24 mg/dL (8-22); CALCIUM 7.8 mg/dL (8.8-10.2); CHLORIDE 120 mmol/L (98-107); COSMO 299; CREATININE 0.7 mg/dL (0.7-1.2); ESTIMATED GFR > 60; GLUCOSE 73 mg/dL (70-104); PHOSPHORUS 2.7 mg/dL (2.7-4.5); POTASSIUM 3.6 mmol/L (3.5-5.1); SODIUM 149 mmol/L (136-145); TCO2 19 mmol/L (25-35)
--- NOTE | 2018-02-15 07:37 | Diag Imaging Result Doc PS360 ---
EXAM: CHEST-PORTABLE INDICATION: pulmonary edema TECHNIQUE: One view COMPARISON: 02/14/2018 FINDINGS: Tracheostomy tube is in stable position. The left pleural fluid collection and/or pleural thickening is unchanged. Interstitial opacity suggesting edema is approximately stable given slight differences in positioning. No new consolidation is identified. Cardiac silhouette is stable. IMPRESSION: Essentially stable chest. Electronically signed by Zacarias Beverly 02/15/2018 7:35 AM
--- NOTE | 2018-02-15 08:40 | EKG Report ---
Test Performed on : 02/14/2018 7:51:03 PM Test Reason : NO EKG ORDER FOR MUSE Blood Pressure : / mmHG Vent. Rate : 064 BPM Atrial Rate : 076 BPM P-R Int : 000 ms QRS Dur : 070 ms QT Int : 348 ms P-R-T Axes : 000 056 007 degrees QTc Int : 359 ms Atrial fibrillation. Low voltage QRS Cannot rule out Anteroseptal infarct (cited on or before 14-FEB-2018) Abnormal ECG When compared with ECG of 13-FEB-2018 11:43, No significant change was found Confirmed by Nick LINDSAY, Eduardo Melchor ([id number]) on 02/16/2018 6:58:26 PM
[2018-02-15] MEDS: LANOXIN NG SCH (08:56)
[2018-02-15] MEDS: CORDARONE PO SCH (08:56)
[2018-02-15] MEDS: LOPRESSOR PO SCH ×2 (08:56→23:14)
[2018-02-15] MEDS: ASPIRIN NG SCH (08:56)
[2018-02-15] MEDS: PROTONIX IV SCH (13:32)
--- NOTE | 2018-02-15 13:33 | CARDIOLOGY PROGRESS NOTE ---
DATE: 02/15/2018 SUBJECTIVE: Mr. Gutierrez does not seem quite as alert this morning. He is back on the ventilator. PHYSICAL EXAMINATION: Vital signs: He is afebrile. His heart rate is in the 60s. His blood pressure most recently was 119/68. Apparently had some mild bradycardic episodes yesterday that were relatively brief. General: No acute distress. He is ill-appearing. Again, back on the ventilator. Cardiovascular: He sounds to be in a regular rate and rhythm. He has no obvious murmurs. He has no lower extremity edema. Chest: Has coarse breath sounds somewhat diffusely. Mechanical breath sounds heard throughout all lung noel. Abdomen: Soft, nontender. PERTINENT DATA: White count is 9.5, hematocrit is 28, platelet count is 76,000. His ABG was reviewed. Sodium 149, potassium 3.6, BUN 24, creatinine 0.7. ASSESSMENT: Mr. Gutierrez is a 72-year-old gentleman with a history of an ST-elevation myocardial infarction, chronic atrial fibrillation, as well as an aspiration pneumonia. PLAN: Patient continues to have atrial fibrillation, as well as periodic bouts of what appears to be a nonsustained ventricular tachycardia. I would continue him on amiodarone at 400 b.i.d., as well as the current metoprolol. Notably, the patient does appear to have a non-anion gap metabolic acidosis in addition to some hypernatremia. At present he had a negative troponin following his bouts of ventricular tachycardia. He is not a candidate for any sort of invasive or noninvasive cardiac procedures at this time to evaluate for ischemia. We will continue to follow along and try to treat this from a medical standpoint. He is on aspirin therapy. cc: Abel Anthony MD
[2018-02-15] MEDS: VANCOMYCIN 1 GM/NS 1 GM/250 ML IVPB IV SCH (14:18)
[2018-02-15] MEDS ORDERED: NS 1,000 ML ONE (14:28)
[2018-02-15] MEDS: CLINIMIX E 4.25%-5% SOLUTION 1,000 ML IV SCH (18:09)
--- NOTE | 2018-02-15 18:46 | PROGRESS NOTE ---
DATE: 02/15/2018 SUBJECTIVE: The patient is currently on the ventilator. No acute events noted overnight. OBJECTIVE: Vital Signs: Temperature 97.4, blood pressure 113/58, heart rate 66 , respirations 12, O2 sats 100% on mechanical ventilator. Urine output 900 mL. General: This is a chronically ill- appearing elderly male currently on the ventilator. Heart: S1, S2 normal. Regular rate and rhythm. Lungs: Coarse breath sounds bilaterally with rhonchi. Abdomen: Positive bowel sounds. Soft, nontender, nondistended. Extremities: 1+ edema bilaterally. Neurologic : The patient is alert and oriented. LABS: White blood cell count 9.5, hemoglobin 9.3, hematocrit 28, platelets 76, 000. Sodium 149, potassium 3.6, chloride 120, CO2 19, BUN is 24, creatinine 0.7, glucose 73, calcium 7.8, magnesium 2. Chest x-ray: Pulmonary edema. Left pleural effusion. ASSESSMENT AND PLAN: 1. Acute on chronic hypoxemic respiratory failure. The patient remains on the ventilator. Further management as per the leasing machine tender. 2. Pulmonary edema. This appears to be unchanged on today's chest x-ray. Will give the patient a dose of Lasix. 3. Hypernatremia. Will start the patient on a small amount of D5W and monitor the sodium closely. 4. Tracheoesophageal fistula. The patient has been assessed by Dr. Coelho. No surgical intervention recommended at this time. 5. History of a recent retroperitoneal hematoma. Aware. 6. Atrial fibrillation. Management as per the biofuels product manager. 7. Nonsustained V-tach. The patient is on amiodarone. 8. Coronary artery disease. Aware. 9. Laryngeal cancer status post laryngectomy. Aware. The patient has a tracheostomy. 10. Non small cell lung cancer. Aware. 11. Thrombocytopenia. Unchanged. Will continue to monitor closely. The patient has no signs of bleeding. 12. Anemia. Stable. 13. Severe protein calorie malnutrition. The patient is currently NPO. He was seen by the speech pathologist who recommended a modified barium swallow. This will be done once the patient has been taken off the ventilator. In the meantime, we will start the patient on Clinimix. 14. GI prophylaxis. Continue on Protonix. cc: MD MARLENA Chung
[2018-02-16] MEDS: MERREM 500 MG in NS 50 ML IV SCH ×3 (00:45→15:18)
[2018-02-16] MEDS: DUONEB (A & A) INH SCH ×6 (03:42→23:15)
[2018-02-16 04:48] LABS: ALLEN TEST YES; BE -3.8 mmoll (-3.0-3.0); BLOOD TYPE ARTERIAL; METHB 1.4 % (0.0-1.5); O2(CT) 13.8 mL/dL (15.0-23.0); O2HB 96.7 % (95.0-99.0); PCO2(98.6) 33 mmHg (35-45); PO2(98.6) 163 mmHg (60-100); SAMPLE BLOOD; SAO2 99.5 % (95.0-100.0); SRATE 14 BPM; THB 9.9 g/dL (11.5-17.4); TVOL 500 mL
[2018-02-16 04:50] LABS: MODALITY VENTILATOR
[2018-02-16 05:08] LABS: HEMATOCRIT 28.9 % (42.0-52.0); HEMOGLOBIN 9.6 g/dL (14.0-18.0); IMM GRAN# 0.02 X1000 (0.0-0.04); IMM GRAN% 0.2 % (0.0-0.5); LYMPH% 3.2 % (20.5-51.1); MCH 33.9 PG (27-31); MCHC 33.2 g/dL (33-37); MCV 102.1 FL (81-99); MONO# 0.19 X1000 (0.11-0.59); MONO% 2.1 % (1.7-9.3); MPV 12.2 FL (7.4-10.4); NEUT# 8.74 X1000 (1.4-6.5); NEUT% 94.5 % (42.2-75.2); PLT 79 X1000 (130-400); RBC 2.83 XMIL (4.7-6.1); RDW 17.5 % (11.5-14.5); WBC 9.25 X1000 (4.8-10.8)
[2018-02-16 05:46] LABS: EOS 2 % (1-10); LYMPHS 2 % (21-51); SEGS 96 % (42-75)
[2018-02-16] MEDS: ROBINUL IV SCH ×3 (05:52→20:23)
[2018-02-16] MEDS: SOLU-CORTEF IV SCH ×3 (05:52→23:49)
[2018-02-16] MEDS: SODIUM CHLORIDE 0.9% INJ PRN (06:14)
[2018-02-16] MEDS: SYNTHROID IV SCH (06:14)
[2018-02-16] MEDS: CLINIMIX E 4.25%-5% SOLUTION 1,000 ML IV SCH (06:15)
[2018-02-16 07:03] LABS: AGAP 12; BUN 26 mg/dL (8-22); CALCIUM 7.9 mg/dL (8.8-10.2); CHLORIDE 119 mmol/L (98-107); COSMO 304; CREATININE 0.7 mg/dL (0.7-1.2); ESTIMATED GFR > 60; GLUCOSE 116 mg/dL (70-104); PHOSPHORUS 2.7 mg/dL (2.7-4.5); POTASSIUM 3.7 mmol/L (3.5-5.1); SODIUM 150 mmol/L (136-145); TCO2 19 mmol/L (25-35)
--- NOTE | 2018-02-16 07:18 | Diag Imaging Result Doc PS360 ---
EXAM: CHEST-PORTABLE 02/16/2018 HISTORY: dyspnea TECHNIQUE: AP portable at 0508 COMMENT: There is slightly more pleural fluid on both sides than on the previous study of 02/15/2018. There is still patchy alveolar and interstitial opacity consistent with pulmonary edema. The possibility of atelectasis or pneumonia in the left lower lobe is suggested. IMPRESSION: Worsened pleural effusions. Electronically signed by Tomi Jiang 02/16/2018 7:15 AM
[2018-02-16] MEDS: D5W 1,000 ML IV SCH ×2 (08:24→17:41)
[2018-02-16] MEDS: ASPIRIN NG SCH (08:33)
[2018-02-16] MEDS: CORDARONE PO SCH (09:21)
[2018-02-16] MEDS: LANOXIN NG SCH (09:21)
[2018-02-16] MEDS: LOPRESSOR PO SCH (09:22)
[2018-02-16] MEDS ORDERED: LASIX IV ONE (12:07)
[2018-02-16] MEDS: LOPRESSOR IV SCH ×2 (12:21→17:41)
--- NOTE | 2018-02-16 12:28 | CARDIOLOGY PROGRESS NOTE ---
DATE: 02/16/2018 SUBJECTIVE: Mr. Gutierrez seems awake and alert. He is on the ventilator. He is mouthing that he is hungry. He has been made NPO, as he has a tracheoesophageal fistula. OBJECTIVE: Vital signs: The patient is afebrile. His heart rate is in the 90s. Blood pressure most recently was 150/77. Most systolics lately have been in the 120s to 130s. Generally: He is in no acute distress. Cardiovascular: He sounds to be in an irregularly, irregular rhythm. Heart rate currently is in the 80s to 90s. He has no lower extremity edema. He has warm and well perfused lower extremities. Chest: Has coarse breath sounds somewhat diffusely. He has no increased work of breathing. Abdomen: Soft, nontender, and nondistended. PERTINENT DATA: Sodium is 150, potassium 3.7, his BUN is 26, creatinine 0.7. His CBC was noted as well as his white blood cell count. His chest x-ray demonstrated the appearance of worsened pleural effusions. ASSESSMENT: Mr. Gutierrez is a 72-year-old gentleman, whose had ventricular tachycardia and atrial fibrillation during this hospitalization. Hospitalizations primarily related to an aspiration pneumonia. PLAN: He is a very sick complex patient with multiple medical issues. We will stop the oral metoprolol and amiodarone due to his tracheoesophageal fistula, as he continues to aspirate with these. I will start IV Lopressor at 2.5 q.6h. We will try giving him a dose of furosemide at 40 mg IV x1 based on his pulmonary edema, and he does seem lately to have worsened respiratory status. cc: Abel Anthony MD
[2018-02-16] MEDS: PROTONIX IV SCH (13:40)
[2018-02-16] MEDS: SODIUM CHLORIDE 0.9% INJ SCH (13:41)
[2018-02-16] MEDS: DILAUDID IV PRN (18:03)
[2018-02-16] MEDS: HALDOL IM PRN (21:25)
[2018-02-17] MEDS: MERREM 500 MG in NS 50 ML IV SCH ×3 (00:40→16:22)
[2018-02-17] MEDS: LOPRESSOR IV SCH ×4 (00:40→17:56)
[2018-02-17] MEDS: DUONEB (A & A) INH SCH ×6 (03:27→22:54)
--- NOTE | 2018-02-17 04:12 | PROGRESS NOTE ---
DATE: 02/16/2018 SUBJECTIVE: The patient is currently on the ventilator. He is able to communicate. OBJECTIVE: Vital Signs: Temperature 98.6 degrees, blood pressure 120/57, heart rate 73, respirations 17, O2 saturation is 100% on mechanical ventilator. General: This is a chronically ill-appearing elderly male lying in bed in no acute distress. Heart: S1, S2 normal. Lungs: Equal air entry with rhonchi and crackles. Abdomen: Positive bowel sounds. Soft, nontender, nondistended. Extremities: With 1+ edema bilaterally. Neurologic: The patient is alert and oriented. LABORATORY DATA: White blood cell count 9.2, hemoglobin 9.6, hematocrit 28, platelets 79,000. Sodium 150, potassium 3.7, chloride 119, CO2 of 19, BUN 26, creatinine 0.7 glucose 116, digoxin 1.1. Chest x-ray shows worsened pleural effusions, patchy alveolar and interstitial opacity consistent with pulmonary edema. ASSESSMENT AND PLAN: 1. Acute on chronic hypoxemic respiratory failure. The patient has pulmonary edema on the chest x-ray as well as pleural effusion. The patient will receive diuretic therapy today. 2. Pulmonary edema. Diuretic therapy as per the investment banking manager. 3. Hypernatremia. The patient is on D5D. 4. Suspected tracheoesophageal fistula. The case was discussed with today and he stated that the patient would likely need to be reassessed at [facility] to do another surgical procedure to close off the fistula. 5. History of recent retroperitoneal hematoma. Aware. 6. Nonsustained ventricular tachycardia. The patient is currently nothing per oral so he is unable to receive oral amiodarone. Will defer to the investment banking manager. 7. Atrial fibrillation. The patient is now on intravenous Lopressor. 8. Laryngeal cancer status post laryngectomy. Aware. 9. Coronary artery disease. Aware. 10. Non-small cell lung cancer. Aware. 11. Thrombocytopenia. Unchanged. 12. Severe protein calorie malnutrition. The patient is currently not receiving any nutrition. At this time the patient refuses to have a feeding tube placed after discussion with him today about his options. 13. Gastrointestinal prophylaxis. Continue on Protonix. 14. Disposition. The patient is critically ill with a high risk of mortality. I have consulted Palliative Care to discuss goals of care with the patient on his family. cc: Lilian Regan MD [facility]
[2018-02-17 05:00] LABS: ALLEN TEST YES; BE -0.7 mmoll (-3.0-3.0); BLOOD TYPE ARTERIAL; HCO3-(ACT) 24.3 mmoll (20.0-26.0); METHB 0.9 % (0.0-1.5); O2(CT) 13.9 mL/dL (15.0-23.0); O2HB 94.7 % (95.0-99.0); PCO2(98.6) 40 mmHg (35-45); PO2(98.6) 76 mmHg (60-100); SAMPLE BLOOD; SAO2 97.4 % (95.0-100.0); SRATE 14 BPM; THB 10.4 g/dL (11.5-17.4); TVOL 500 mL; pH(98.6) 7.39 (7.35-7.45)
[2018-02-17 05:01] LABS: MODALITY VENTILATOR
[2018-02-17] MEDS: D5W 1,000 ML IV SCH ×2 (05:39→13:59)
[2018-02-17] MEDS: ROBINUL IV SCH ×3 (05:39→21:00)
[2018-02-17] MEDS: VANCOMYCIN 1 GM/NS 1 GM/250 ML IVPB IV SCH (05:39)
[2018-02-17] MEDS: SOLU-CORTEF IV SCH ×3 (05:40→21:00)
[2018-02-17 05:59] LABS: HEMATOCRIT 31.6 % (42.0-52.0); HEMOGLOBIN 10.5 g/dL (14.0-18.0); MCH 34.9 PG (27-31); MCHC 33.2 g/dL (33-37); MPV 12.8 FL (7.4-10.4); RBC 3.01 XMIL (4.7-6.1); RDW 17.7 % (11.5-14.5); WBC 8.69 X1000 (4.8-10.8)
[2018-02-17] MEDS: SODIUM CHLORIDE 0.9% INJ SCH (06:04)
[2018-02-17] MEDS: SYNTHROID IV SCH (06:04)
[2018-02-17 06:16] LABS: AGAP 12; ALBUMIN 2.3 g/dL (3.5-5.0); BUN 22 mg/dL (8-22); CALCIUM 7.4 mg/dL (8.8-10.2); CHLORIDE 112 mmol/L (98-107); COSMO 292; CREATININE 0.7 mg/dL (0.7-1.2); ESTIMATED GFR > 60; GLUCOSE 99 mg/dL (70-104); PHOSPHORUS 2.1 mg/dL (2.7-4.5); POTASSIUM 3.4 mmol/L (3.5-5.1); SODIUM 145 mmol/L (136-145); TCO2 21 mmol/L (25-35)
--- NOTE | 2018-02-17 06:31 | Diag Imaging Result Doc PS360 ---
EXAM: CHEST-PORTABLE HISTORY: dyspnea TECHNIQUE: Portable chest single view COMPARISON: 02/16/2018 FINDINGS: Stable tracheostomy tube. There is pulmonary edema as well as infiltrates predominantly in the left lung. There is a small to moderate-sized left pleural effusion with a small right pleural effusion. The overall appearance is fairly similar to the prior study. IMPRESSION: No interval improvement. Electronically signed by Ren Ortega 02/17/2018 6:29 AM
[2018-02-17] MEDS ORDERED: LASIX IV ONE (07:40)
[2018-02-17] MEDS: ALBUMIN 25% IV SCH (08:18)
[2018-02-17] MEDS: LANOXIN NG SCH (08:21)
[2018-02-17] MEDS: ASPIRIN NG SCH (08:21)
[2018-02-17] MEDS ORDERED: ALBUMIN 25% IV SCH (09:00)
[2018-02-17] MEDS: PROTONIX IV SCH (14:01)
--- NOTE | 2018-02-17 15:14 | Diag Imaging Result Doc PS360 ---
BA SWALLOW-ESOPHAGUS - 02/17/2018 INDICATION: Prior laryngectomy, ? tracheoesophageal fistula TECHNIQUE: Gastrografin esophagram. Total fluoroscopy time was one minute 44 seconds. 47 images were obtained. COMPARISON: None FINDINGS: There is a tracheostomy tube. There are surgical clips all throughout the neck compatible with prior laryngectomy. The patient was able to drink water-soluble contrast was drawn. The patient was able to fill esophagus well. There is no evidence of fistula or aspiration. However there is extremely impaired relaxation of the lower esophageal sphincter compatible with achalasia. This results in significant retention of contrast material in the esophagus. IMPRESSION: Lower esophageal achalasia. Severe retention of material in the esophagus. No visible fistula. Electronically signed by Justin Trujillo 02/17/2018 3:12 PM
--- NOTE | 2018-02-17 15:47 | PULMONOLOGY PROGRESS NOTE ---
DATE: 02/17/2018 SUBJECTIVE: The patient is currently on the ventilator. He is attempting to communicate, but request cannot be understood. OBJECTIVE: Vital signs: The patient has been afebrile for the last 24 hours. Blood pressure 119/69, heart rate 87, respiratory rate 18. HEENT: Pupils are equal and reactive. Oropharynx is clear. Neck: Supple with prior laryngectomy noted, with some thickening of the skin. Chest: Reveals scattered rhonchi bilaterally. Cardiac exam: S1, S2. Abdomen: Soft. Extremities: Without edema. LABORATORY DATA: Arterial blood gas reveals a pH 7.39, pCO2 of 40, PO2 of 76. Chemistries: Sodium 145, potassium 3.4, chloride 112, bicarbonate 21, BUN 22, creatinine 0.7. White blood count 8.69, hemoglobin 10.5, platelet count 86,000. DIAGNOSTIC STUDIES: Chest x-ray reveals infiltrates on the left, moderate left- sided pleural effusion. IMPRESSION: A 72-year-old with aspiration pneumonia, tracheoesophageal fistula by report, ventricular tachycardia, acute on chronic hypoxemic respiratory failure. RECOMMENDATIONS: 1. Attempt to place patient back on trach collar. 2. Wean oxygen as tolerated. 3. Hold oral feedings at this juncture pending clarification of the tracheoesophageal fistula. 4. Additional recommendations pending hospital course. Time spent in critical care management: 30+ minutes cc: Griffin Roland MD [facility]
[2018-02-17] MEDS ORDERED: POTASSIUM PHOSPHATE 30 MMOL in NS 250 ML IV ONE (17:00)
[2018-02-17] MEDS: LASIX IV SCH (17:57)
[2018-02-17] MEDS ORDERED: CALCIUM GLUCONATE 1 GM in NS 50 ML IV ONE (18:00)
--- NOTE | 2018-02-17 19:39 | PROGRESS NOTE ---
DATE: 02/17/2018 SUBJECTIVE: The patient is resting comfortably. He is off the ventilator now on tracheostomy collar. OBJECTIVE: Vital Signs: Temperature 98.6 degrees, blood pressure 113/56, heart rate 83, respirations 20, O2 saturation 96% on tracheostomy collar. Urine output 2.4 L. General: This is a chronically ill-appearing elderly male lying in bed in no acute distress. Head: Normocephalic, atraumatic. Neck: The patient has a tracheostomy in place. Heart: S1, S2 normal. Regular rate and rhythm. Lungs: Coarse breath sounds with rhonchi. Abdomen: Positive bowel sounds. Soft, nontender, nondistended. Extremities: 2+ edema, no cyanosis. Neuro: The patient is alert and oriented x3. LABS: White blood cell count 8.6, hemoglobin 10, hematocrit 31, platelets 86, 000, sodium 145, potassium 3.4, chloride 112, CO2 21, BUN 22, creatinine 0.7, glucose 99, calcium 7.4, phosphorus 2.1, albumin 2.3. Chest x-ray shows pulmonary edema, moderate-size left pleural effusion and a small right pleural effusion. Barium swallow x-ray revealed lower esophageal achalasia. Severe retention of material in the esophagus. No visible fistula. ASSESSMENT AND PLAN: 1. Acute on chronic hypoxemic respiratory failure. The patient is now off of the ventilator and on a trach collar. Continue with pulmonary toiletry. 2. Acute pulmonary edema. The patient is on diuretic therapy. We will continue to monitor the patient's intake and output and try to obtain a negative fluid balance. 3. Hypernatremia, resolved. Will discontinue the D5W. 4. Achalasia. The patient had a barium swallow today that revealed achalasia. Will await further recommendations from GI. 5. History of recent retroperitoneal hematoma. Aware. 6. Atrial fibrillation. Continue on IV Lopressor. 7. Laryngeal cancer status post laryngectomy. Aware. 8. Non small cell lung cancer. Aware. 9. Thrombocytopenia. Improved. 10. Severe protein calorie malnutrition. Will await the assessment from GI before making a decision regarding nutrition. 11. Nonsustained ventricular tachycardia. Continue on Lopressor. 12. Gastrointestinal prophylaxis. Continue on IV Protonix. 13. Disposition. The patient has decided that he wants a feeding tube placed if it is necessary. cc: Lilian Regan MD [facility]
--- NOTE | 2018-02-17 21:01 | CONSULTATION ---
DATE OF CONSULTATION: 02/17/2018 REASON FOR CONSULTATION: PEG tube placement. HISTORY OF PRESENT ILLNESS: This is a 72-year-old male who has been in the hospital since 02/05/2018. Records since admission have been reviewed. Patient had been recently in [facility] for prolonged stay of heart problems. He had ST-elevation [place]. Had required stent placement. He had complications of retroperitoneal hematoma. The patient had recently been discharged to [facility] and had been there for approximately 2 weeks before his admission to [facility]. The patient had apparently came into the emergency room after pulling out his tracheostomy tube. He was found to have hypotension. He has been treated for pneumonia. Has also been found to have during this admission tracheoesophageal fistula with aspiration. The patient does have a history of PEG tube placement in the past. He has a history of laryngeal cancer status post tracheostomy years ago. We have been asked to see the patient for possible PEG tube placement. PAST MEDICAL HISTORY: Recent pneumonia, recently in [facility] for [place] requiring stent placement, history of retroperitoneal hematoma, history of [id number] lung cancer and laryngeal cancer status post laryngectomy in [facility], patient has tracheostomy, chronic kidney disease, history of DVT, coronary artery disease with recent STEMI in October 2017, chronic atrial fibrillation, GERD, hypothyroidism, COPD. PAST SURGICAL HISTORY: History of tracheostomy placement, cardiac stent placement, laryngectomy for laryngeal cancer, history of IVC filter for DVT. ALLERGIES: No known drug allergies. HOME MEDICATIONS: There and no current home medications listed. SOCIAL HISTORY: He has currently resided at [facility] He is a . He has 3 children but I do not believe they are present his life because was told by the nurse he has a power of sports attorney. REVIEW OF SYSTEMS: Unable to obtain because patient is nonverbal with tracheostomy, information has been obtained from the chart.Vital Signs: Temperature 98 degrees, pulse 85, respirations 15, blood pressure 128/83. General: Patient is awake and alert. He does nod and mouth answers to some of my questions due to being nonverbal unable to fully assist with full review of systems and exam. Respiratory: Lung sounds with some rhonchi and crackles. Patient has a tracheostomy with a tracheostomy collar in place. He had been taken off the ventilator earlier in the day and is so far tolerating that. Abdomen: Soft, positive bowel sounds. He does have some scarring, has a history of a PEG tube in the past. He has a scar from that. Otherwise abdomen is soft, nontender. Positive bowel sounds. Extremities: Some lower extremity edema noted and discoloration of his lower legs. He has wound pads on his heels. DIAGNOSTIC RESULTS: Laboratory. Hematology. WBC 8.69, hemoglobin 10.5, hematocrit 31.6, MCV 105.0, platelets 86,000. Chemistry sodium 145, potassium 3.4, chloride 112, CO2 21, BUN 22, creatinine 0.7, glucose 99, calcium 7.4, phosphorus 2.1. Recent imaging studies. Chest x-ray today showed stable tracheostomy tube, pulmonary edema with infiltrates predominantly in the left lung, small to moderate size pleural effusion. Patient has a swallow study ordered barium swallow ordered. ASSESSMENT AND PLAN: 1. Acute/chronic respiratory failure. Patient has tracheostomy tube with O2 by tracheostomy collar. He had been on the ventilator until today. 2. Tracheoesophageal fistula. Apparently this case has been reviewed at [facility] and recommendations of the possibility of surgical procedure to repair the fistula has been considered. 3. Atrial fibrillation. History of nonsustained ventricular tachycardia. The patient is being followed by cement finisher apprentice. 4. Laryngeal cancer status post laryngectomy and patient has tracheostomy. Again continue current management. 5. Malnutrition. Consult has been made for us for possible percutaneous endoscopic gastrostomy tube placement. We will see what the barium swallow report shows. Due to his tracheoesophageal fistula he will most likely need a PEG where this fistula can be closed up. Further plans to be made according to barium swallow study. PEG tube can be placed most likely next week and further plans to be made as needed. I have discussed this case with Dr. Del Rosario. Thank you for this consultation. Dictated by BOB Hankins for Christopher Del Rosario MD cc: BOB Winston MD
[2018-02-18] MEDS: LOPRESSOR IV SCH ×4 (00:51→17:31)
[2018-02-18] MEDS: MERREM 500 MG in NS 50 ML IV SCH ×4 (00:52→23:57)
[2018-02-18] MEDS: DUONEB (A & A) INH SCH ×6 (03:43→23:13)
[2018-02-18] MEDS: D5W 1,000 ML IV SCH (04:30)
[2018-02-18] MEDS: ROBINUL IV SCH ×3 (04:30→20:59)
[2018-02-18 05:54] LABS: ALLEN TEST YES; BE 4.4 mmoll (-3.0-3.0); BLOOD TYPE ARTERIAL; HCO3-(ACT) 28.3 mmoll (20.0-26.0); METHB 0.8 % (0.0-1.5); O2HB 95.6 % (95.0-99.0); PCO2(98.6) 39 mmHg (35-45); PO2(98.6) 81 mmHg (60-100); SAMPLE BLOOD; SAO2 98.4 % (95.0-100.0); THB 9.6 g/dL (11.5-17.4); pH(98.6) 7.47 (7.35-7.45)
[2018-02-18 05:55] LABS: MODALITY COOL AEROSOL
[2018-02-18] MEDS: SOLU-CORTEF IV SCH ×3 (06:15→20:59)
[2018-02-18] MEDS: LASIX IV SCH (06:16)
[2018-02-18] MEDS: SYNTHROID IV SCH (06:16)
[2018-02-18 06:44] LABS: HEMATOCRIT 27.4 % (42.0-52.0); HEMOGLOBIN 9.1 g/dL (14.0-18.0); MCH 33.3 PG (27-31); MCHC 33.2 g/dL (33-37); MCV 100.4 FL (81-99); MPV 12.7 FL (7.4-10.4); RBC 2.73 XMIL (4.7-6.1); RDW 16.4 % (11.5-14.5); WBC 8.12 X1000 (4.8-10.8)
[2018-02-18] MEDS ORDERED: MAGNESIUM SULFATE 2 GM/S.W.I. 2 GM/50 ML IVPB IV ONE (06:51)
[2018-02-18 07:21] LABS: AGAP 13; ALBUMIN 2.8 g/dL (3.5-5.0); BUN 15 mg/dL (8-22); CALCIUM 7.9 mg/dL (8.8-10.2); CHLORIDE 104 mmol/L (98-107); COSMO 286; CREATININE 0.7 mg/dL (0.7-1.2); ESTIMATED GFR > 60; GLUCOSE 73 mg/dL (70-104); PHOSPHORUS 2.7 mg/dL (2.7-4.5); POTASSIUM 2.8 mmol/L (3.5-5.1); SODIUM 144 mmol/L (136-145); TCO2 27 mmol/L (25-35)
[2018-02-18] MEDS ORDERED: POTASSIUM CHLORIDE 60 MEQ in NS 500 ML IV ONE (07:42)
[2018-02-18] MEDS: ALBUMIN 25% IV SCH (08:19)
[2018-02-18] MEDS: ASPIRIN NG SCH (08:20)
[2018-02-18] MEDS: LANOXIN NG SCH (08:20)
--- NOTE | 2018-02-18 08:59 | Diag Imaging Result Doc PS360 ---
CHEST-PORTABLE - 02/18/2018 INDICATION: dyspnea COMPARISON: 02/17/2018 FINDINGS: There is still some oral contrast from the esophagram yesterday indicating severe achalasia and stasis throughout the esophagus. Stable tracheostomy tube. Stable dense consolidation throughout the left lung. Slight worsening infiltrate in the lateral right lung base. IMPRESSION: Worsening from prior. Electronically signed by Justin Trujillo 02/18/2018 8:57 AM
[2018-02-18] MEDS: VANCOMYCIN 1 GM/NS 1 GM/250 ML IVPB IV SCH (09:30)
[2018-02-18] MEDS: CLINIMIX E 4.25%-5% SOLUTION 1,000 ML IV SCH (12:39)
--- NOTE | 2018-02-18 13:07 | PROGRESS NOTE ---
DATE: 02/18/2018 SUBJECTIVE: Patient is less alert today. He was sleeping and did not arouse very well. He has O2 by tracheostomy collar. I have spoken with the nurse. Patient had barium swallow yesterday. There was no evidence of fistula or aspiration however there was extremely impaired relaxation of the lower esophageal sphincter compatible with achalasia resulting in retention of contrast material in the esophagus. OBJECTIVE: Vital Signs: Temperature 97.4 degrees, pulse 69, blood pressure 112 /49. LABORATORY: Hematology. WBC 8.12, hemoglobin 9.1, hematocrit 27.4, MCV 100.4 , platelets 93,000. Chemistry. Sodium 144, potassium 2.8, chloride 104, CO2 27, BUN 15, creatinine 0.7, glucose 73. ASSESSMENT AND PLAN: 1. Acute/chronic respiratory failure. Patient is off ventilator on tracheostomy collar O2. 2. 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 Other medical problems including atrial fibrillation, history of laryngeal cancer status post laryngectomy, history of non-small cell lung cancer, severe protein calorie malnutrition, history of ventricular tachycardia. 3. Continue supportive care. The patient is being held NPO. Will discuss this case with Dr. Del Rosario. We were consulted for possible PEG tube placement. Further plans will be made as needed. Dictated by BOB Hankins for Christopher Del Rosario MD cc: BOB Winston MD [facility]
[2018-02-18] MEDS: PROTONIX IV SCH (13:49)
--- NOTE | 2018-02-18 14:16 | PROGRESS NOTE ---
DATE: 02/18/2018 SUBJECTIVE: The patient is resting comfortably in bed. He is a little bit lethargic this morning. No acute events noted overnight. OBJECTIVE: Vital Signs: Temperature 97.4, blood pressure 102/60, heart rate 86 , respirations 17. O2 sat 96% on a trach collar. Urine output 6.8 L. General: This is a chronically ill-appearing elderly male lying in bed in no acute distress. Lungs: Equal air entry bilaterally. Coarse breath sounds. Abdomen: Positive bowel sounds. Soft, nontender, nondistended. Extremities: No edema. No cyanosis. Neurologic: The patient is lethargic but will move his arm. LABORATORY DATA: White blood cell count 8.1, hemoglobin 9.1, hematocrit 27, platelets 93,000. Sodium 144, potassium 2.8, chloride 104, CO2 of 27. BUN 15, creatinine 0.7, glucose 73, magnesium 1.6, albumin 2.8. ProBNP 8526. Chest x-ray shows a dense consolidation throughout the left lung. Slight worsening of the infiltrate in the lateral right lung base. ASSESSMENT AND PLAN: 1. [id number]-[id number] hypoxemic respiratory failure. Continue with pulmonary toiletry. The patient is on a trach collar. 2. Acute pulmonary edema. The patient is diuresing well with the current diuretic dosage. We will continue to monitor for improvement. 3. Worsened infiltrates. The patient is afebrile with a normal white blood cell count. Will obtain a CT of the chest today. 4. Achalasia. Will await further recommendations from GI. 5. Atrial fibrillation. Continue on IV Lopressor. 6. History of a recent retroperitoneal hematoma, aware. 7. Laryngeal cancer status post laryngectomy, aware. 8. Thrombocytopenia, stable. 9. Severe protein calorie malnutrition. We will await the decision from the bias binding cutter regarding PEG tube placement. 10. Gastrointestinal prophylaxis. Continue on IV Protonix. cc: Lilian Regan MD MTDD
--- NOTE | 2018-02-18 14:55 | Diag Imaging Result Doc PS360 ---
CT THORAX W/O CONTRAST - 02/18/2018 INDICATION: pulmonary edema/pneumonia COMPARISON: Prior exams FINDINGS: There is a tracheostomy tube. There is residual oral contrast throughout the esophagus and stomach as described previously. There is moderate cardiomegaly. There is significant volume loss of the left lung. There are significant pleural calcifications. There is a small right and trace left pleural effusion. There is severe body wall edema. There is ascites. There is moderate COPD. The left-sided lobar bronchi are completely opacified with fluid. IMPRESSION: 1. Complete mucous plugging of the left lobar bronchi with complete collapse of the left lung. Trace left pleural effusion. 2. Small right pleural effusion. 3. Cardiomegaly. Hazy interstitial pulmonary edema. 4. Body wall edema. Trace ascites. This exam was performed using automated exposure control, adjustment of mA or kV according to patient size, and/or use of iterative reconstruction technique Electronically signed by Justin Trujillo 02/18/2018 2:52 PM
--- NOTE | 2018-02-18 16:51 | PULMONOLOGY PROGRESS NOTE ---
DATE: 02/18/2018 SUBJECTIVE: The patient is awake, alert. He attempts to communicate by talking. I cannot understand what he is trying to communicate. OBJECTIVE: Vital Signs: The patient has been afebrile, blood pressure 112/49, heart rate 69, respiratory rate 11, oxygen saturation 97% on trach collar. He has no increased work of breathing. HEENT: Pupils are equal and reactive. Oropharynx is clear. Neck: Supple. Chest: Reveals good air entry. Occasional rhonchi. Cardiac exam: S1, S2. Abdomen: Soft. Extremities: Without edema. LABORATORIES: The esophagus remains full of contrast from his esophagram yesterday. He continues to have infiltrates predominantly in the left lung with some at the right base. White blood count 144, potassium 2.8, chloride 104. BUN 15, creatinine 0.7. ProBNP 8526. White blood count 8.17, hemoglobin 9.1, platelet count 93,000. Arterial blood gas: The pH is 7.47, pCO2 of 39, PO2 of 89 on 35% FiO2. 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 RECOMMENDATIONS: 1. Initiate Clinimix as an alternative feeding source. 2. Continue antibiotics for pneumonia. 3. Continue trach collar trial as tolerated. 4. Await Gastroenterology evaluation of his severe achalasia. 5. Electrolyte replacement. cc: Griffin Roland MD
[2018-02-19] MEDS: LOPRESSOR IV SCH ×4 (00:10→18:06)
[2018-02-19] MEDS: ROBINUL IV SCH ×3 (03:38→20:45)
[2018-02-19] MEDS: DUONEB (A & A) INH SCH ×6 (03:43→23:08)
[2018-02-19 05:52] LABS: HEMATOCRIT 25.2 % (42.0-52.0); HEMOGLOBIN 8.4 g/dL (14.0-18.0); MCH 34.4 PG (27-31); MCHC 33.3 g/dL (33-37); MCV 103.3 FL (81-99); MPV 12.7 FL (7.4-10.4); RBC 2.44 XMIL (4.7-6.1); RDW 16.7 % (11.5-14.5); WBC 5.91 X1000 (4.8-10.8)
[2018-02-19] MEDS: SOLU-CORTEF IV SCH ×3 (06:09→21:48)
[2018-02-19] MEDS: CLINIMIX E 4.25%-5% SOLUTION 1,000 ML IV SCH ×2 (06:10→13:33)
[2018-02-19] MEDS: SYNTHROID IV SCH (06:12)
[2018-02-19 06:21] LABS: AGAP 10; BUN 20 mg/dL (8-22); CALCIUM 7.7 mg/dL (8.8-10.2); CHLORIDE 103 mmol/L (98-107); COSMO 293; CREATININE 0.6 mg/dL (0.7-1.2); ESTIMATED GFR > 60; GLUCOSE 135 mg/dL (70-104); PHOSPHORUS 3.2 mg/dL (2.7-4.5); POTASSIUM 3.4 mmol/L (3.5-5.1); SODIUM 145 mmol/L (136-145); TCO2 32 mmol/L (25-35)
[2018-02-19] MEDS: POTASSIUM CHLORIDE 20 MEQ/SWI 20 MEQ/100 ML IVPB IV SCH ×2 (07:17→08:25)
[2018-02-19] MEDS: MERREM 500 MG in NS 50 ML IV SCH ×2 (07:18→15:59)
--- NOTE | 2018-02-19 07:31 | Diag Imaging Result Doc PS360 ---
CHEST-PORTABLE - 02/19/2018 INDICATION: dyspnea COMPARISON: 02/18/2018 FINDINGS: Stable tracheostomy tube. There is worsening consolidation of the left lung which is now nearly completely collapsed. Stable infiltrate/edema throughout the right lung. There is a small right pleural effusion. IMPRESSION: No change from the prior CT yesterday afternoon. Complete collapse of the left lung due to airway mucous plugging. Electronically signed by Justin Trujillo 02/19/2018 7:29 AM
[2018-02-19] MEDS: LASIX IV SCH (08:25)
[2018-02-19] MEDS: ALBUMIN 25% IV SCH (08:25)
[2018-02-19] MEDS: ASPIRIN NG SCH (08:34)
[2018-02-19] MEDS: LANOXIN NG SCH (08:35)
[2018-02-19] MEDS: VANCOMYCIN 1 GM/NS 1 GM/250 ML IVPB IV SCH (09:52)
[2018-02-19] MEDS: PROTONIX IV SCH (13:33)
--- NOTE | 2018-02-19 13:46 | PULMONOLOGY PROGRESS NOTE ---
DATE: 02/19/2018 SUBJECTIVE: Patient is resting comfortably in his bed. He has no increased work of breathing. He remains on trach collar. OBJECTIVE: Vitals: Blood pressure 117/62, heart rate 68, respiratory rate 11, oxygen saturation 98%. He has been afebrile for the last 24 hours. HEENT: Pupils are equal and reactive. Oropharynx is clear. Neck: Reveals prior tracheostomy with postsurgical changes. Chest: Reveals diminished breath sounds right base. Cardiac exam: Regular rate. Normal S1, normal S2. Abdomen: Soft and without hepatosplenomegaly. Extremities: Reveal chronic vascular insufficiency. LABORATORIES/IMAGING: Chest x-ray reveals consolidation in the left with continued barium in the esophagus and stomach. No evidence of tracheoesophageal fistula identified. White blood count 5.9, hemoglobin 8.4, platelet count 78,000. Chemistry: Sodium 145, potassium 3.4, chloride 103, bicarbonate 32, BUN 20, creatinine 0.6, glucose 135. IMPRESSION: A 72-year-old with pneumonia, achalasia on esophagram without evidence of tracheoesophageal fistula, history of laryngectomy, acute on chronic hypoxemic respiratory failure, severe protein calorie malnutrition. RECOMMENDATIONS: 1. Continue Clinimix as his current feeding source. 2. Gastroenterology to evaluate possible Botox of the lower esophageal sphincter due to achalasia. 3. Continue antibiotics for pneumonia. 4. Continue trach collar trial as tolerated. 5. Overall prognosis is guarded, cc: Griffin Roland MD
--- NOTE | 2018-02-19 15:39 | Diag Imaging Result Doc PS360 ---
CHEST-PORTABLE - 02/19/2018 2:53 PM INDICATION: NG placement COMPARISON: 5:29 AM FINDINGS: The nasogastric tube is coiled in the pharynx and the tip is up in the pharynx. IMPRESSION: Nasogastric tube is coiled in the pharynx and the tip is up in the pharynx. This report was discussed with RT Leonidas on 02/19/2018 at 3:30 PM and was readback. Electronically signed by Justin Trujillo 02/19/2018 3:37 PM
--- NOTE | 2018-02-19 16:36 | PROGRESS NOTE ---
DATE: 02/19/2018 SUBJECTIVE: The patient is resting comfortably in bed. No acute events noted overnight. OBJECTIVE: Vital Signs: Temperature 97.2, blood pressure 111/78, heart rate 74, respirations 12, O2 sats 99% on the trach collar. General: This is a chronically ill-appearing elderly male lying in bed. Heart: S1, S2 normal. Regular rate and rhythm. Lungs: Coarse breath sounds bilaterally. Abdomen: Positive bowel sounds. Soft, nontender, nondistended. Extremities: No edema, no cyanosis. Neurologic: The patient is alert and oriented x 3. LABS: White blood cell count 5.9, hemoglobin 8.4, hematocrit 25, platelets 78,000. Sodium 145, potassium 3.4, chloride 103, CO2 32, BUN 20, creatinine 0.6, glucose 135, albumin 3. Chest x-ray shows collapse of the left lung due to airway mucous plugging. ASSESSMENT AND PLAN: 1. Acute on chronic hypoxemic respiratory failure. Continue with pulmonary toiletry. 2. Acute pulmonary edema. Improved. Continue with the current diuretic therapy. 3. Achalasia. Management as per GI. 4. Atrial fibrillation. Continue on Lopressor and digoxin. 5. History of recent retroperitoneal hematoma. Aware. 6. Thrombocytopenia. Stable. 7. Laryngeal cancer status post laryngectomy. Aware. 8. Severe protein calorie malnutrition. The patient is currently on Clinimix. We will await further decision regarding PEG tube placement. 9. GI prophylaxis. Continue on IV Protonix. cc: Lilian Regan MD
--- NOTE | 2018-02-19 23:19 | PROGRESS NOTE ---
DATE: 02/19/2018 Patient is resting comfortably not responding. He is on ventilator and has tracheostomy in place. He continues to be NPO has not been able to eat. He is currently on TPN. IMPRESSION: Dysphagia most likely achalasia. Imaging suggestive of achalasia. I would recommend to try place a feeding tube or NG tube, that can be placed adequately if possible and we can start him on tube feeding. Once he is stable enough to proceed with EGD and possible Botox injection to help with his dysphagia because of achalasia. I do not think patient is candidate for any other intervention. cc: Christopher Del Rosario MD
[2018-02-20] MEDS: MERREM 500 MG in NS 50 ML IV SCH ×4 (00:30→23:51)
[2018-02-20] MEDS: LOPRESSOR IV SCH ×5 (01:39→20:51)
[2018-02-20] MEDS: CLINIMIX E 4.25%-5% SOLUTION 1,000 ML IV SCH ×2 (01:39→13:55)
[2018-02-20] MEDS: DUONEB (A & A) INH SCH ×6 (02:57→23:21)
[2018-02-20] MEDS: ROBINUL IV SCH ×3 (05:23→20:51)
[2018-02-20] MEDS: SOLU-CORTEF IV SCH ×3 (05:23→21:05)
[2018-02-20 05:26] LABS: ALLEN TEST YES; BE 12.3 mmoll (-3.0-3.0); BLOOD TYPE ARTERIAL; HCO3-(ACT) 34.4 mmoll (20.0-26.0); METHB 0.6 % (0.0-1.5); O2(CT) 10.8 mL/dL (15.0-23.0); PCO2(98.6) 50 mmHg (35-45); PO2(98.6) 50 mmHg (60-100); SAMPLE BLOOD; SAO2 89.4 % (95.0-100.0); THB 8.8 g/dL (11.5-17.4); pH(98.6) 7.48 (7.35-7.45)
[2018-02-20 05:27] LABS: O2HB 86.7 % (95.0-99.0)
[2018-02-20 05:28] LABS: MODALITY COOL AEROSOL
[2018-02-20 06:30] LABS: HEMATOCRIT 22.7 % (42.0-52.0); HEMOGLOBIN 8.7 g/dL (14.0-18.0); MCH 39.2 PG (27-31); MCHC 38.3 g/dL (33-37); MCV 102.3 FL (81-99); MPV 13.1 FL (7.4-10.4); RBC 2.22 XMIL (4.7-6.1); RDW 17.2 % (11.5-14.5); WBC 7.26 X1000 (4.8-10.8)
[2018-02-20] MEDS: SYNTHROID IV SCH (06:42)
[2018-02-20 06:57] LABS: AGAP 10; ALBUMIN 3.3 g/dL (3.5-5.0); BUN 26 mg/dL (8-22); CALCIUM 8.3 mg/dL (8.8-10.2); CHLORIDE 101 mmol/L (98-107); COSMO 289; CREATININE 0.5 mg/dL (0.7-1.2); ESTIMATED GFR > 60; GLUCOSE 114 mg/dL (70-104); PHOSPHORUS 2.5 mg/dL (2.7-4.5); POTASSIUM 3.7 mmol/L (3.5-5.1); SODIUM 142 mmol/L (136-145); TCO2 31 mmol/L (25-35)
[2018-02-20] MEDS ORDERED: POTASSIUM PHOSPHATE 30 MMOL in NS 250 ML IV ONE (07:04)
--- NOTE | 2018-02-20 07:07 | Diag Imaging Result Doc PS360 ---
EXAM: CHEST-PORTABLE HISTORY: dyspnea TECHNIQUE: Chest single view COMPARISON: 02/19/2018 FINDINGS: The tracheostomy tube is in good position. Near complete opacification of the left hemithorax similar to the prior study. There are infiltrates/pulmonary edema throughout the right lung. These are more pronounced than on the prior study. Multiple surgical clips overlie the lower neck. IMPRESSION: Interval worsening Electronically signed by Ren Ortega 02/20/2018 7:05 AM
[2018-02-20] MEDS: LASIX IV SCH (09:12)
[2018-02-20] MEDS: ASPIRIN NG SCH (09:13)
[2018-02-20] MEDS: LANOXIN NG SCH (09:13)
[2018-02-20 10:34] LABS: HEMATOCRIT 27.7 % (42.0-52.0); MCH 32.7 PG (27-31); MCHC 32.5 g/dL (33-37); MCV 100.7 FL (81-99); MPV 12.3 FL (7.4-10.4); RBC 2.75 XMIL (4.7-6.1); RDW 16.6 % (11.5-14.5); WBC 7.18 X1000 (4.8-10.8)
[2018-02-20] MEDS: VANCOMYCIN 1 GM/NS 1 GM/250 ML IVPB IV SCH (10:38)
[2018-02-20] MEDS ORDERED: STERILE WATER INJ. ONE (12:25)
--- NOTE | 2018-02-20 13:18 | Diag Imaging Result Doc PS360 ---
EXAM: CHEST/ABD TUBE PLACEMENT HISTORY: ngt placement TECHNIQUE: Chest abdomen single view COMPARISON: 5:10 AM FINDINGS: A nasogastric tube has been placed which overlies the esophagus and stomach. No other interval change. IMPRESSION: The tip of the nasogastric tube overlies the stomach. Electronically signed by Ren Ortega 02/20/2018 1:16 PM
[2018-02-20] MEDS: PROTONIX IV SCH (13:51)
--- NOTE | 2018-02-20 18:08 | PROGRESS NOTE ---
DATE: 02/20/2018 SUBJECTIVE: The patient is resting comfortably in bed, no acute events noted overnight. OBJECTIVE: Vital Signs: Temperature 98 degrees, blood pressure 132/75, heart rate 83, respirations 14, O2 saturation 99% on the tracheostomy collar. General: This is a chronically ill-appearing elderly man lying in bed in no acute distress. Heart: S1, S2 normal. Regular rate and rhythm. Lungs: Equal air entry bilaterally with rhonchi. Abdomen: Positive bowel sounds. Soft, nontender, nondistended. Extremities: No edema, no cyanosis. Neuro: The patient is alert and oriented x3. LABS: White blood cell count 7.1, hemoglobin 9, hematocrit 27, platelets 83,000 , sodium 142, potassium 3.7, CO2 31, BUN 26, creatinine 0.5, glucose 114, phosphorus 2.5, calcium 8.3, albumin 3.3. Chest x-ray shows worsening of the infiltrates and pulmonary edema throughout the right lung. ASSESSMENT AND PLAN: 1. Acute on chronic hypoxemic respiratory failure. Continue with pulmonary toiletry, bronchodilator therapy and diuretic therapy. 2. Acute pulmonary edema. Continue on Lasix. 3. Achalasia. Management as per GI. 4. Atrial fibrillation. Continue on Lopressor and digoxin. 5. Laryngeal cancer status post laryngectomy. Aware. 6. Thrombocytopenia. Stable. 7. History of a recent retroperitoneal hematoma. Aware. 8. Severe protein calorie malnutrition. The patient is scheduled to be started on tube feeds today. 9. Gastrointestinal prophylaxis. Continue on IV Protonix. cc: Lilian Regan MD MTDD
--- NOTE | 2018-02-20 19:26 | PROGRESS NOTE ---
DATE: 02/20/2018 SUBJECTIVE: Patient arouses easily. He is in no acute distress. He has O2 trach collar in place. He is off the ventilator. He has been held n.p.o. Patient had a feeding tube placed but it became dislodged. OBJECTIVE: Vital Signs: Temperature is 98.0, pulse 78, respirations 12, blood pressure 119/74. LABORATORY: Hematology: WBC 7.1, hemoglobin 9.0, hematocrit 27.7, MCV 100.7, platelets 83,000. Chemistry: Sodium 142, potassium 3.7, chloride 101, CO2 31, BUN 26, creatinine 0.5, glucose 114. ASSESSMENT AND PLAN: 1. Dysphagia, most likely related to achalasia. Recommend replacing this feeding tube and start feeding. Once the patient is stable we can proceed with EGD with possible Botox injection. Botox injection would have to be ordered and we will proceed with EGD once scheduling permits. 2. I have discussed this case with Dr. Del Rosario. Further plans to be made according to patient's progress. Dictated by BOB Hankins for Christopher Del Rosario MD cc: BOB Winston MD
[2018-02-21] MEDS: CLINIMIX E 4.25%-5% SOLUTION 1,000 ML IV SCH ×3 (02:32→15:30)
[2018-02-21] MEDS: DUONEB (A & A) INH SCH ×6 (03:55→23:17)
[2018-02-21] MEDS: ROBINUL IV SCH ×3 (04:55→21:27)
[2018-02-21] MEDS: LOPRESSOR IV SCH ×4 (04:55→21:28)
[2018-02-21] MEDS: SODIUM CHLORIDE 0.9% INJ SCH (06:05)
[2018-02-21] MEDS: SOLU-CORTEF IV SCH ×3 (06:05→21:34)
[2018-02-21] MEDS: SYNTHROID IV SCH (06:06)
[2018-02-21 06:44] LABS: HEMATOCRIT 22.6 % (42.0-52.0); HEMOGLOBIN 8.9 g/dL (14.0-18.0); MCH 41.6 PG (27-31); MCHC 39.4 g/dL (33-37); MCV 105.6 FL (81-99); RBC 2.14 XMIL (4.7-6.1); RDW 18.1 % (11.5-14.5); WBC 6.98 X1000 (4.8-10.8)
[2018-02-21 06:54] LABS: AGAP 7; ALBUMIN 3.2 g/dL (3.5-5.0); BUN 33 mg/dL (8-22); CALCIUM 7.6 mg/dL (8.8-10.2); CHLORIDE 101 mmol/L (98-107); COSMO 296; CREATININE 0.6 mg/dL (0.7-1.2); ESTIMATED GFR > 60; GLUCOSE 102 mg/dL (70-104); PHOSPHORUS 2.9 mg/dL (2.7-4.5); POTASSIUM 3.5 mmol/L (3.5-5.1); SODIUM 145 mmol/L (136-145); TCO2 37 mmol/L (25-35)
[2018-02-21 06:55] LABS: MAGNESIUM 2.1 mg/dL (1.5-2.7); PREALBUMIN 14.6 mg/dL (20-40)
--- NOTE | 2018-02-21 07:08 | Diag Imaging Result Doc PS360 ---
EXAM: CHEST-PORTABLE 02/21/2018 HISTORY: dyspnea TECHNIQUE: AP portable at 0524 COMMENT: There is pleural thickening and/or loculated effusion on the left and pleural fluid on the right. There is pulmonary edema. This has not changed appreciably since 02/20/2018. There is slightly better pneumatization of the left upper lobe since the previous study. IMPRESSION: Improved left upper lobe atelectasis. Pulmonary edema with bilateral pleural effusions. Electronically signed by Tomi Jiang 02/21/2018 7:06 AM
--- NOTE | 2018-02-21 07:13 | EKG Report ---
Test Performed on : 02/21/2018 07:02:09 AM Test Reason : afib Blood Pressure : / mmHG Vent. Rate : 080 BPM Atrial Rate : 441 BPM P-R Int : 000 ms QRS Dur : 046 ms QT Int : 430 ms P-R-T Axes : 000 051 196 degrees QTc Int : 497 ms Atrial fibrillation. with rapid ventricular response. with premature ventricular or aberrantly conduc pamela complexes. Low voltage QRS Cannot rule out Anteroseptal infarct (cited on or before 14-FEB-2018) Abnormal ECG When compared with ECG of 14-FEB-2018 19:51, No significant change was found Confirmed by Nick LINDSAY, Eduardo Melchor ([id number]) on 02/21/2018 3:03:10 PM
[2018-02-21] MEDS: LANOXIN NG SCH ×2 (07:40→08:05)
[2018-02-21] MEDS: MERREM 500 MG in NS 50 ML IV SCH ×2 (07:45→15:29)
[2018-02-21] MEDS: LASIX IV SCH ×2 (07:45→08:05)
[2018-02-21] MEDS: ASPIRIN NG SCH (08:05)
[2018-02-21] MEDS: VANCOMYCIN 1 GM/NS 1 GM/250 ML IVPB IV SCH (09:40)
--- NOTE | 2018-02-21 09:51 | PROGRESS NOTE ---
DATE: 02/21/2018 SUBJECTIVE: Mr. Gutierrez is a 72-year-old, who was admitted on 02/05/2018. He had dislodged tracheostomy. He had a very complex medical history. History of obtained from chart review. He came from [facility]. He has had multiple prolonged stays in [facility] over the past [address]-elevation myocardial infarction requiring stent placement. This has been complicated by retroperitoneal hematoma. He also has a history of laryngeal cancer status post tracheostomy multiple years ago. He has chronic respiratory failure and has been admitted to [facility] with pneumonia, acute chronic respiratory failure, Pseudomonas, H flu, sepsis. He has had chronic kidney disease, overall extremely poor health. He has been residing at [facility] for the last 2 weeks before this admission and last admission was at [facility]. On 02/05/2018, he pulled out his tracheostomy. It is unclear exactly why. His sjtfl-[id number] who did accompany him in the hospital states that he often pulls out medical equipment. In the emergency room, he had significant green yellow sputum coming from the trach site. Tracheostomy was replaced successfully; however, he did start to become acutely hypotensive, and blood pressure ranging 60-80 systolic prompted central line placement in his femoral vein by the ER physician and placed on Levophed for sepsis. REVIEW OF PAST MEDICAL HISTORY: 1. Recent admission to [facility] for septic shock and H flu pneumonia, as well as gram- negative bacteremia. 2. Chronic respiratory failure. 3. History of non-small cell lung cancer, laryngeal cancer status post laryngectomy at [facility] with current tracheostomy. 4. Chronic kidney disease. Exact stage unknown. 5. Thrombocytopenia. 6. Recent history of left lower extremity DVT status post inferior vena cava filter placement. 7. Coronary artery disease with recent ST-elevated myocardial infarction, October 2017. 8. Chronic atrial fibrillation, not on anticoagulation secondary to thrombocytopenia. 9. Hypothyroidism. 10. Gastroesophageal reflux disease. 11. Probable COPD. 12. History of retroperitoneal hematoma earlier in the year, another reason not on anticoagulation status. SURGICAL HISTORY: 1. He has had a tracheostomy placement. 2. Stent placement. 3. Laryngectomy. 4. Placement of IVC filter. OBJECTIVE: General: Today on exam, he is awake and responsive, trying to communicate. Vital signs: Temperature is 98.1 degrees, pulse 75, respirations 20, blood pressure 128/70. HEENT: Pupils are equal. Neck: No distended neck veins. Lungs: Clear in all lung noel. Cardiovascular: Regular rhythm and rate without murmur or S3. Abdomen: Soft. Skin: Warm and dry. Intake/Output: Urine output is 3700 mL. ASSESSMENT AND PLAN: 1. Acute respiratory failure. Patient does have a tracheostomy in place and has been ventilated via his tracheostomy. He continues to work on improved gas exchange and seems to be improving. 2. Atrial fibrillation. Rate is controlled. Cardiology following. 3. Coronary artery disease. Aware. 4. Pneumonia. Continue present antibiotics. 5. History of lung as well as laryngeal cancer. Aware. 6. History of deep venous thrombosis status post inferior vena cava filter placement. He is not on anticoagulation. 7. Deep venous thrombosis prophylaxis. Sequential compression devices in place. 8. Gastrointestinal prophylaxis. He is on proton pump inhibitor. The patient is on Clinimix 80 mL hourly, digoxin 125 mcg a day. He is on Cardizem drip, Lasix 40 mg a day, Robinul 0.2 mg IV q.8 h. He gets Haldol as needed. I should add that he has a history of hypothyroidism, and he is on levothyroxine. Apparently he still has some trouble with delirium for which were using Haldol. Vancomycin 1 g q.24 h. cc: Len Borja MD
[2018-02-21] MEDS: HALDOL IM PRN (11:43)
[2018-02-21] MEDS ORDERED: MISC. PHARMACY COMMUNICATION SCH (12:45)
[2018-02-21] MEDS ORDERED: MILK OF MAGNESIA PO ONE (12:47)
[2018-02-21] MEDS ORDERED: GLYCERIN ADULT PR ONE (12:47)
--- NOTE | 2018-02-21 13:22 | PROGRESS NOTE ---
DATE: 02/21/2018 SUBJECTIVE: Patient is awake, he is sitting up in the bed. Per nurse report, he had elevation in his feeding residuals this morning and the feeding has been placed on hold. He had greater than 200 mL residual. Patient tolerated lower dose feeding yesterday without difficulty. I have spoken with a sales account director who will adjust the feeding. The patient had a barium swallow on 02/17/2018 that showed lower esophageal achalasia with severe retention of material in the esophagus with no visible esophageal fistula noted. OBJECTIVE: Vital Signs: Temperature 98.3 degrees, pulse 87, respirations 16, blood pressure 100/65. General: Patient arouses easily. He is in no acute distress. He was tolerating his tube feedings until the rate was increased. Currently feeding is on hold due to high residual. LABORATORY: Hematology. WBC 6.98, hemoglobin 8.9, hematocrit 22.6, MCV 105.6, platelets 75,000. Chemistry. Sodium 145, potassium 3.5, chloride 101, CO2 37, BUN 33, creatinine 0.6, glucose 102. ASSESSMENT AND PLAN: 1. Dysphagia most likely related to achalasia. Patient had tolerated lower dose feeding but residuals were high with increased rate. Follow sales account director recommendation. We will plan to proceed with EGD and Botox injection when able. I have spoken with Jacqueline Kuhn, patient's power of banking attorney and she does agree to the procedure. I have ordered the Botox and once it is in we will proceed with EGD possibly tomorrow. Further plans to be made according to findings and results. I have discussed this case with Dr. Del Rosario. 2. Constipation. Patient has not had a bowel movement since February 09. We will give milk of magnesia dose and a glycerin suppository. Further plans will be made according to his response. Dictated by BOB Hankins for Christopher Del Rosario MD cc: BOB Winston MD
[2018-02-21] MEDS ORDERED: STERILE WATER INJ. ONE (13:26)
[2018-02-21] MEDS: PROTONIX IV SCH (13:27)
--- NOTE | 2018-02-21 13:52 | CARDIOLOGY PROGRESS NOTE ---
DATE: 02/21/2018 SUBJECTIVE: Mr. Gutierrez is on a trach collar presently. He is somewhat sedated. He did not wake to physical stimuli. OBJECTIVE: Vital Signs: The patient is afebrile. His heart rate is in 80s to 90s. Most recently with a blood pressure 100/65. His I's and O's seem relatively matched to negative over the last couple of days. General: He is an ill-appearing white male in no acute distress. Cardiovascular: He is in an irregularly irregular rhythm consistent with rate controlled atrial fibrillation on his telemetry. Chest: His chest exam has coarse breath sounds throughout all lung noel. Lots of upper airway noise. Abdomen: His abdomen is soft, nontender. PERTINENT DATA: His white count is 6.9, his hematocrit is 22.6, his platelet count is 75. His sodium is 145, potassium 3.5, BUN 33, creatinine 0.6. ASSESSMENT: Mr. Gutierrez is a 72-year-old gentleman, who currently has a pneumonia, has a tracheoesophageal fistula, and has had ventricular tachycardia. PLAN: We are continuing him on his current medications. At some point, we will likely transition him over to oral medications when feasible to do so. Presently, I have no acute recommendations. He seems to be reasonably balanced on his intake over the last couple of days. cc: Abel Anthony MD
[2018-02-22] MEDS: MERREM 500 MG in NS 50 ML IV SCH ×3 (00:26→16:30)
[2018-02-22] MEDS: CLINIMIX E 4.25%-5% SOLUTION 1,000 ML IV SCH ×2 (03:02→16:30)
[2018-02-22] MEDS: DUONEB (A & A) INH SCH ×6 (03:25→23:37)
[2018-02-22] MEDS: LOPRESSOR IV SCH ×4 (04:20→20:59)
[2018-02-22] MEDS: ROBINUL IV SCH ×3 (04:36→20:59)
[2018-02-22] MEDS: SOLU-CORTEF IV SCH ×2 (06:24→13:47)
[2018-02-22] MEDS: SODIUM CHLORIDE 0.9% INJ PRN (06:24)
[2018-02-22] MEDS: SYNTHROID IV SCH (06:24)
--- NOTE | 2018-02-22 09:14 | PROGRESS NOTE ---
DATE: 02/22/2018 SUBJECTIVE: Mr. Gutierrez is resting, sleeping comfortably, seems to be comfortable with trach, humidified oxygen. The plan is to try and do an EGD and I think they are going to look at possible Botox to see if they can help with his swallow. They are concerned about how we are going to give him nutrition. We would like to avoid a PEG tube if possible. OBJECTIVE: Vitals: Temperature 97 degrees, pulse 60, respirations 15, blood pressure 109/76. Eyes: Pupils are equal and round. Lungs: Clear in all lung noel. Cardiovascular: Regular rhythm and rate without murmur or S3. Abdomen: Soft. Skin: Warm and dry. URINE OUTPUT: 3500 mL. ASSESSMENT AND PLAN: 1. Dysphagia, most likely related to achalasia. The patient has tolerated lower dose feeding, but residuals are high when we increase his feeding rate, so I think the plan is to do an EGD and consider Botox injection today. 2. Constipation. He has not had a bowel movement since February 09, giving Milk of Magnesia and glycerine suppository. 3. Treating him for pneumonia. 4. He has had ventricular tachycardia. 5. History of coronary artery disease. Aware. 6. Atrial fibrillation, rate is controlled. 7. Continue deep venous thrombosis prophylaxis. 8. He is status post inferior vena cava filter placement, and he is on proton are proton pump inhibitors. Still getting IV Cardizem, getting Clinimix 80 mL q. Hour. 9. He has a history of primary hypothyroidism. He is on Synthroid 50 mcg IV daily and he is taking vancomycin and meropenem. cc: Len Borja MD
[2018-02-22] MEDS: ASPIRIN NG SCH (09:17)
[2018-02-22] MEDS: LASIX IV SCH (09:17)
[2018-02-22] MEDS: LANOXIN NG SCH (09:17)
[2018-02-22] MEDS: VANCOMYCIN 1 GM/NS 1 GM/250 ML IVPB IV SCH (10:55)
[2018-02-22] MEDS: PROTONIX IV SCH (13:47)
--- NOTE | 2018-02-22 14:37 | PROGRESS NOTE ---
DATE: 02/22/2018 SUBJECTIVE: Patient was resting with no distress noted. We had planned for an EGD with Botox injection today for achalasia, but the Botox did not come in; it will not be in until tomorrow afternoon. Unfortunately, scheduling does not permit procedure this week, so we will plan for EGD with Botox injection on Tuesday. OBJECTIVE: Vital Signs: Temperature 97.8 degrees, pulse 60, respirations 16, blood pressure 117/60. General: Generally, patient was resting and aroused easily in no acute distress. LABORATORY: Hematology: WBC 6.98, hemoglobin 8.9, hematocrit 22.6, MCV 105.6. Chemistry: Sodium 145, potassium 3.5, chloride 101, CO2 37, BUN 33, creatinine 0.6, glucose 102. ASSESSMENT AND PLAN: 1. Dysphagia most likely related to achalasia. Unfortunately, we will not be able to do the esophagogastroduodenoscopy with Botox injection this week. We will plan on doing that Tuesday. Continue feeding per nasogastric tube for now. 2. Constipation. The patient was given a laxative regimen yesterday. It does look like he has had 2 soft brown bowel movements today. 3. History of laryngeal cancer with tracheostomy. O2 is per trach collar. Will continue to follow during this hospital course and plan for esophagogastroduodenoscopy with Botox injection on Tuesday. Further plans will be made according to findings. I have discussed this case with Dr. Del Rosario. Dictated by BOB Hankins for Christopher Del Rosario MD cc: BOB Winston MD [facility]
[2018-02-22] MEDS: HALDOL IM PRN (16:30)
[2018-02-23] MEDS: SOLU-CORTEF IV SCH ×4 (00:15→22:35)
[2018-02-23] MEDS: MERREM 500 MG in NS 50 ML IV SCH ×3 (00:20→17:08)
[2018-02-23] MEDS: DUONEB (A & A) INH SCH ×6 (03:45→23:07)
[2018-02-23] MEDS: LOPRESSOR IV SCH ×4 (04:30→20:30)
[2018-02-23] MEDS: ROBINUL IV SCH ×3 (04:30→20:22)
[2018-02-23] MEDS: CLINIMIX E 4.25%-5% SOLUTION 1,000 ML IV SCH ×2 (04:31→17:02)
--- NOTE | 2018-02-23 05:49 | CARDIOLOGY PROGRESS NOTE ---
DATE: 02/22/2018 SUBJECTIVE: Mr. Gutierrez continues on trach collar. No significant events over the last 24 hours. PHYSICAL EXAMINATION: Vital Signs: The patient is afebrile. His heart rate is 79, blood pressure 101/56. General: He is in no acute distress. Cardiovascular: He sounds to be in a irregularly irregular rhythm. Telemetry currently seems to show rate controlled atrial fibrillation although the baseline is somewhat difficult. He has warm and well perfused lower extremities with no edema. Chest: Has coarse upper airway noise diffusely. Trach collar is in place. Abdomen: Soft, nontender. PERTINENT DATA: He has no new laboratories from today. ASSESSMENT: Mr. Gutierrez is a 72-year-old gentleman with a pneumonia, atrial fibrillation and ventricular tachycardia. PLAN: At this point I have no acute cardiovascular recommendations. He does not seem to have had any significant arrhythmic events recently. I would not pursue anticoagulation at this time considering there are tentative plans for GI procedures in the future. We will follow somewhat intermittently at this point as long as he is relatively stable. I would continue him on the IV metoprolol, this could be transitioned over to oral metoprolol in the future once a definitive feeding route is placed. cc: Abel Anthony MD MTDD
[2018-02-23] MEDS: SODIUM CHLORIDE 0.9% INJ PRN (06:25)
[2018-02-23] MEDS: SYNTHROID IV SCH (06:26)
--- NOTE | 2018-02-23 09:36 | PROGRESS NOTE ---
DATE: 02/23/2018 SUBJECTIVE: Mr. Rivera has NG tube in place. They are having trouble with residual, so having to watch the rate feeding pretty closely. We are unable to do the Botox injection, and plan is to do I think next week. OBJECTIVE: Vital Signs: Temperature is 96.8 degrees, pulse 80, respirations 18, blood pressure 107/76. Pupils: Are equal and round. Neck: No distended neck veins. Lungs: Clear anterolateral. Cardiovascular: Regular rhythm and rate without murmur or S3. Abdomen: Soft. Skin: Warm and dry. Urine output: 3800 mL. ASSESSMENT AND PLAN: 1. Dysphagia most likely related to achalasia. Fortunately, unable to get the Botox injection until next week. Family and patient would like to avoid percutaneous endoscopic gastrostomy tube. So, plan is try and do it on Tuesday. This is today. 2. Constipation. He is on his laxative regimen and apparently, he has had some bowel movements. 3. History of laryngeal cancer status post tracheostomy. He is on oxygen per tracheostomy collar. 4. He has a history of ventricular tachycardia. 5. History of coronary artery disease. No active cardiac ischemia at the present time. 6. Atrial fibrillation. Rate is controlled. 7. Continue deep venous thrombosis prophylaxis, but he has an inferior vena cava filter that has been placed. 8. History of primary hypothyroidism. He is on Synthroid 50 mcg daily. So, we will continue the current orders. He is on Clinimix at 80 mL an hour, aspirin 81 mg a day, digoxin 125 mcg a day. He is still on Cardizem drip, I believe. He is getting hydrocortisone 50 mg IV q.8. He is on Synthroid 50 mcg IV daily, meropenem 500 mg q.8, Lopressor 2.5 mg IV q.6., and he is getting vancomycin 1 gram q.24 hours. cc: Len Borja MD
[2018-02-23 10:31] LABS: ESTIMATED GFR > 60
[2018-02-23 10:49] LABS: AGAP 6; ALKALINE PHOSPHATASE 68 U/L (32-122); BUN 39 mg/dL (8-22); CHLORIDE 100 mmol/L (98-107); COSMO 303; CREATININE 0.6 mg/dL (0.7-1.2); GLUCOSE 121 mg/dL (70-104); GOT 10 U/L (10-34); GPT 6 U/L (10-44); MAGNESIUM 2.3 mg/dL (1.5-2.7); PHOSPHORUS 2.4 mg/dL (2.7-4.5); POTASSIUM 3.4 mmol/L (3.5-5.1); SODIUM 147 mmol/L (136-145); TCO2 41 mmol/L (25-35); TOTAL BILIRUBIN 1.21 mg/dL (0.20-1.00); TOTAL PROTEIN 4.5 g/dL (6.3-8.3)
[2018-02-23] MEDS: LANOXIN NG SCH (12:05)
[2018-02-23] MEDS: ASPIRIN NG SCH (12:06)
[2018-02-23] MEDS: VANCOMYCIN 1 GM/NS 1 GM/250 ML IVPB IV SCH (12:06)
[2018-02-23] MEDS: LASIX IV SCH (12:07)
[2018-02-23] MEDS: LOVENOX SUBQ SCH (14:40)
[2018-02-23] MEDS: PROTONIX IV SCH (14:41)
[2018-02-24] MEDS: MERREM 500 MG in NS 50 ML IV SCH ×3 (00:35→16:50)
[2018-02-24] MEDS: HALDOL IM PRN (02:07)
[2018-02-24] MEDS: LOVENOX SUBQ SCH ×2 (02:08→13:57)
[2018-02-24] MEDS: DUONEB (A & A) INH SCH ×6 (03:18→23:30)
[2018-02-24] MEDS: ROBINUL IV SCH ×3 (03:44→21:11)
[2018-02-24] MEDS: LOPRESSOR IV SCH ×4 (03:44→21:12)
--- NOTE | 2018-02-24 03:59 | CARDIOLOGY PROGRESS NOTE ---
DATE: 02/23/2018 SUBJECTIVE: Mr. Gutiererz is on trach collar. He is awake. OBJECTIVE: Vital Signs: He is afebrile. His heart rate is in the 70s-90s. Blood pressure 113/72. General: He is in no acute distress, ill-appearing. Cardiovascular: Irregularly irregular. Rate controlled. No murmurs no lower extremity edema. Warm and well perfused lower extremities. Chest: Exam has coarse upper airway noise. No increased work of breathing. Abdomen: Soft and nontender. PERTINENT DATA: His intakes and outtakes over the last several days have been negative, over the last couple of days they have been relatively matched. His laboratory data shows a sodium of 147, potassium is 3.4, his BUN is 39, creatinine is 0.6. His albumin level was 3. ASSESSMENT: Mr. Gutierrez is a 72-year-old gentleman with pneumonia, atrial fibrillation and ventricular tachycardia. PLAN: At this point I have no acute cardiovascular recommendations. He is rate controlled. He is not a candidate for anticoagulation at this point secondary to possible upcoming procedures as well as comorbidities. When he can reliably take oral medications we could transition from IV Lopressor over to oral Lopressor. cc: Abel Anthony MD
[2018-02-24] MEDS: CLINIMIX E 4.25%-5% SOLUTION 1,000 ML IV SCH ×2 (04:57→18:18)
[2018-02-24 05:57] LABS: EOS# 0.01 X1000 (0.0-0.7); EOS% 0.2 % (0.0-10.0); HEMATOCRIT 25.8 % (42.0-52.0); LYMPH# 0.26 X1000 (1.2-3.4); LYMPH% 5.3 % (20.5-51.1); MCH 32.7 PG (27-31); MCV 105.3 FL (81-99); MONO# 0.13 X1000 (0.11-0.59); MONO% 2.7 % (1.7-9.3); MPV 12.7 FL (7.4-10.4); NEUT# 4.49 X1000 (1.4-6.5); NEUT% 91.8 % (42.2-75.2); PLT 89 X1000 (130-400); RBC 2.45 XMIL (4.7-6.1); RDW 16.5 % (11.5-14.5); WBC 4.89 X1000 (4.8-10.8)
[2018-02-24 06:39] LABS: ESTIMATED GFR > 60
[2018-02-24 06:40] LABS: AGAP 5; BUN 42 mg/dL (8-22); CALCIUM 7.8 mg/dL (8.8-10.2); CHLORIDE 100 mmol/L (98-107); COSMO 302; CREATININE 0.6 mg/dL (0.7-1.2); GLUCOSE 122 mg/dL (70-104); POTASSIUM 3.6 mmol/L (3.5-5.1); SODIUM 146 mmol/L (136-145); TCO2 41 mmol/L (25-35)
[2018-02-24] MEDS: SODIUM CHLORIDE 0.9% INJ PRN (06:50)
[2018-02-24] MEDS: SYNTHROID IV SCH (06:50)
[2018-02-24] MEDS: SOLU-CORTEF IV SCH ×3 (06:50→21:11)
--- NOTE | 2018-02-24 07:43 | Diag Imaging Result Doc PS360 ---
CHEST-1 VIEW - 02/24/2018 INDICATION: SOB COMPARISON: 02/21/2018 FINDINGS: Stable tracheostomy tube and nasogastric tube in good position. There is improved aeration of the left lung apex. Otherwise persistent dense collapse/consolidation of the left lung. Stable small to moderate right pleural effusion. No new infiltrates. IMPRESSION: Slight improvement from prior. Electronically signed by Justin Trujillo 02/24/2018 7:41 AM
[2018-02-24] MEDS: LASIX IV SCH (08:48)
[2018-02-24] MEDS: LANOXIN NG SCH (08:48)
[2018-02-24] MEDS: ASPIRIN NG SCH (08:48)
--- NOTE | 2018-02-24 09:52 | Extremity Venous Study ---
PROCEDURE NAME: Venous U/S Left Leg - 02/23/2018 LEFT LOWER EXTREMITY VENOUS ULTRASOUND: FURNACE CLEANER: Ko. REQUESTING PHYSICIAN: Huong. INDICATIONS: Pitting edema. Central line in the femoral. FINDINGS: The deep and superficial veins of the left lower extremity were visualized. At the superficial femoral, popliteal and peroneal veins, there is evidence of deep venous thrombosis. There is diminished flow here consistent with acute DVT of the left lower extremity. cc: MD Gisella Best CRNP
[2018-02-24] MEDS: VANCOMYCIN 1 GM/NS 1 GM/250 ML IVPB IV SCH (10:03)
[2018-02-24] MEDS: LACTULOSE PO SCH (11:57)
[2018-02-24] MEDS: REGLAN LIQUID PO SCH ×2 (12:01→21:11)
[2018-02-24] MEDS ORDERED: NS 500 ML IV ONE (12:09)
--- NOTE | 2018-02-24 13:12 | PROGRESS NOTE ---
DATE: 02/24/2018 SUBJECTIVE: Patient was in no acute distress. He is currently in restraints. Patient's nurse states he has pulled out his El catheter this morning. OBJECTIVE: Vital Signs: Temperature 98.5 degrees, pulse 94, respirations 13, blood pressure 133/71. General: Generally, patient is in no acute distress. But he is in restraints stenting due to pulling on tubes. Patient is currently tolerating his tube feeding. He does seem to have elevated residuals once the feeding rate is advanced. This is most likely due to achalasia of the esophagus. There are plans to proceed with an EGD on 02/27/2018 with Botox injection for achalasia. ASSESSMENT AND PLAN: 1. Achalasia. 2. Dysphagia. Tolerating tube feedings by nasogastric tube at lower rate. 3. Constipation on a laxative regimen. 4. History of laryngeal cancer status post tracheostomy patient is stable with oxygen per trach collar. 5. Left deep vein thrombosis on Lovenox. We will need to hold the Lovenox the morning of his esophagogastroduodenoscopy procedure and resume that evening. I have discussed the EGD procedure, along with the Botox injection with the patient. I have also discussed with Jacqueline Bam, his power of deputy prosecuting attorney, and she wishes to proceed. Further plans to be made according to findings and progress. I have discussed this case with Dr. Del Rosario. Dictated by BOB Hankins for Christopher Del Rosario MD cc: BOB Winston MD
[2018-02-24] MEDS: PROTONIX IV SCH (13:56)
[2018-02-24] MEDS: LEVOPHED 8 MG in D5 1/2 NS 250 ML IV SCH (14:04)
--- NOTE | 2018-02-24 15:54 | PROGRESS NOTE ---
DATE: 02/24/2018 SUBJECTIVE: Mr. Gutierrez was resting in 4-point restraint. His breathing appeared to be nonlabored. OBJECTIVE: His temperature is 98.5, pulse 106, respirations 23. Blood pressure 123/69. Pupils are equal and round. No distended neck veins. Lungs are clear in all lung noel. Cardiovascular: Regular rhythm and rate without murmur S3. Urine output 3700 mL. ASSESSMENT AND PLAN: 1. Achalasia. Attempting to do Botox injection. I believe that will be on Tuesday. 2. Dysphagia. He has had tube feedings which he is tolerating. 3. Constipation. 4. Laryngeal cancer, status post tracheostomy. The patient seems to be stable. His blood pressure has been doing well but, shortly after I saw him this morning, blood pressure started to dip some; may have to put him back on a pressor. We will give him a fluid bolus of 400 mL. 5. He also has thrombosis discovered on Doppler, so he is on anticoagulant. REVIEW OF HIS ORDERS: 1. He is on Reglan 5 mg p.o. q. 8 hours. 2. He is on albuterol breathing treatments. 3. Aspirin 81 mg a day. 4. Clinimix 80 mL an hour. 5. Lanoxin 125 mcg daily. 6. Cardizem drip. 7. Lasix 40 mg a day. 8. Robinul which is 0.2 mg IV q. 8; that is glycopyrrolate hydrocortisone 50 mg IV q. 8. 9. Dilaudid 1 mg q.4 hours p.r.n. 10. Lactulose 15 mL daily. 11. Synthroid 50 mcg a day. 12. He is on meropenem 500 mg q. 8. 13. Lopressor 2.5 q.6 hours. 14. Getting Diprivan as needed. 15. Vancomycin 1 g IV q. 24 hours. 16. Lovenox 70 mg subcu q. 12. Blood pressure has improved with a little fluid bolus. cc: Len Borja MD
--- NOTE | 2018-02-24 23:02 | CARDIOLOGY PROGRESS NOTE ---
DATE: 02/24/2018 SUBJECTIVE: Mr. Gutierrez is on trach collar, minimally responsive to physical stimuli. No acute events overnight per discussion with staff. PHYSICAL EXAMINATION: He is afebrile, heart rate of 94, his blood pressure is 133/71. Telemetry seems to show atrial fibrillation. Cardiovascular: He is in an irregularly irregular rhythm. He has no murmurs. He has no lower extremity edema. He has warm and well perfused lower extremities. Chest: Coarse breath sounds. Coarse upper airway noise diffusely. Abdomen: Soft, nontender. PERTINENT DATA: White count 4.8, hematocrit 25, platelet count is 89,000. Hematocrit and platelet count are slightly improved. His sodium is 146, potassium is 3.6, BUN 42, creatinine 0.6 which is roughly stable from yesterday. He had a chest x-ray today demonstrating slight improvement, improved aeration in the left apex, dense collapsed consolidation of the left lung, small to moderate right pleural effusion. His I's and O's over the last several days appear to be slightly positive on a daily basis. ASSESSMENT: Mr. Gutierrez is a 72-year-old gentleman with a history of pneumonia, atrial fibrillation, and ventricular tachycardia. PLAN: We are continuing him on his current medications, including the digoxin and IV metoprolol. His rate seems reasonably well controlled. His I's and O's seem to be elevated, suggesting slightly positive fluid balances for the last few days. His BUN and creatinine ratios are elevated over the last few days. His albumin yesterday was 3. His chest x-ray seems to show slight improvement. I would continue to watch for now. May consider an escalated dose of Lasix on an intermittent basis in the future. cc: Abel Anthony MD
[2018-02-25] MEDS: DILAUDID IV PRN (00:05)
[2018-02-25] MEDS: MERREM 500 MG in NS 50 ML IV SCH ×4 (00:08→23:48)
[2018-02-25] MEDS: LOVENOX SUBQ SCH ×2 (02:54→15:04)
[2018-02-25] MEDS: HALDOL IM PRN (02:55)
[2018-02-25] MEDS: LOPRESSOR IV SCH ×4 (02:55→21:29)
[2018-02-25] MEDS: DUONEB (A & A) INH SCH ×6 (03:30→23:22)
[2018-02-25] MEDS: ROBINUL IV SCH ×3 (03:32→21:28)
[2018-02-25] MEDS: REGLAN LIQUID PO SCH ×3 (04:55→21:29)
[2018-02-25] MEDS: CLINIMIX E 4.25%-5% SOLUTION 1,000 ML IV SCH (06:06)
[2018-02-25] MEDS: SOLU-CORTEF IV SCH ×3 (06:06→21:28)
[2018-02-25] MEDS: SODIUM CHLORIDE 0.9% INJ PRN (06:06)
[2018-02-25] MEDS: SYNTHROID IV SCH (06:07)
--- NOTE | 2018-02-25 09:22 | PROGRESS NOTE ---
DATE: 02/25/2018 Mr. Gutierrez appears to be resting well. He just finished getting his bath. Breathing is comfortable. Blood pressures seem to be doing well. Range from 107 to 128 over 60 to 96. OBJECTIVE: HEENT: His pupils are equal. NECK: No distended neck veins. LUNGS: Clear anterolateral. CARDIOVASCULAR: Regular rate and rhythm without murmur or S3. ABDOMEN: Soft. SKIN: Warm and dry. EXTREMITIES: His feet are warm. They seem to be healing well. He has some heel ulcers that are improving. His weight is 153 pounds. It was 169 on the , that was yesterday. His urine output was 3 L. ASSESSMENT AND PLAN: 1. Achalasia. We are awaiting to try Botox injection I think on Tuesday. He is getting tube feeding which he is tolerating. He is also getting Clinimix. I think we can stop the Clinimix and change to normal saline. 2. Constipation. He is having bowel movements, doing better. 3. Laryngeal cancer status post tracheostomy. Getting humidified oxygen. 4. Thrombosis, I believe his left leg. Continue anticoagulant. 5. History of hypothyroidism. Appears to be euthyroid. He is on Synthroid 50 mcg a day. 6. He is having some delirium and agitation and this seems to have improved. Review of his lab from yesterday: Hematocrit was 25, hemoglobin was 8, white count 4,890. Sodium 146, potassium 3.6, chloride 100, BUN 42, creatinine 0.6. Albumin was 3.0, prealbumin 14.6. So, I will stop his Clinimix and see if we can change him to normal saline. cc: Len Borja MD
--- NOTE | 2018-02-25 09:24 | PROGRESS NOTE ---
DATE: 02/25/2018 ADDENDUM: As you will recall, he had a non-ST elevation myocardial infarction and aspiration pneumonia and underlying atrial fibrillation, which rate is controlled. Watching his sodium. I will stop the Clinimix and I will put him on D5 1/2 and I will add potassium to that, 85 mL an hour. cc: Len Borja MD
[2018-02-25] MEDS: LASIX IV SCH (09:28)
[2018-02-25] MEDS: ASPIRIN NG SCH (09:29)
[2018-02-25] MEDS: LACTULOSE PO SCH (09:29)
[2018-02-25] MEDS: D5 1/2 NS + KCL 20 MEQ 1,000 ML IV SCH ×2 (09:29→21:48)
[2018-02-25] MEDS: VANCOMYCIN 1 GM/NS 1 GM/250 ML IVPB IV SCH (10:42)
[2018-02-25] MEDS: LANOXIN NG SCH (12:16)
[2018-02-25] MEDS: PROTONIX IV SCH (15:00)
[2018-02-26] MEDS: DUONEB (A & A) INH SCH ×6 (02:47→23:34)
[2018-02-26] MEDS: LOVENOX SUBQ SCH ×2 (03:11→15:21)
[2018-02-26] MEDS: LOPRESSOR IV SCH ×4 (03:11→21:11)
[2018-02-26] MEDS: ROBINUL IV SCH ×3 (03:40→21:10)
[2018-02-26] MEDS: REGLAN LIQUID PO SCH ×3 (04:39→21:10)
[2018-02-26] MEDS: SODIUM CHLORIDE 0.9% INJ PRN (05:59)
[2018-02-26] MEDS: SOLU-CORTEF IV SCH ×3 (05:59→21:11)
[2018-02-26] MEDS: SYNTHROID IV SCH (06:00)
--- NOTE | 2018-02-26 08:43 | PROGRESS NOTE ---
DATE: 02/26/2018 SUBJECTIVE: Mr. Gutierrez is resting comfortably. He did open his eyes. Still has humidified oxygen to his trach. We have turned down the tube feeding to 30 mL, and he seems to be tolerating that better. We have stopped the Clinimix. OBJECTIVE: Vital Signs: Temp 98.7 degrees, pulse 77, respirations 18, blood pressure 110/62. HEENT: Pupils are equal and round. Lungs: Clear in all lung noel. Cardiovascular: Regular rhythm and rate without murmur or S3. Abdomen: Soft. Skin: Warm and dry. Urine output was 3000 mL. LABORATORY DATA: Reviewed from 02/24/2018. Chemistries and CBC unremarkable. ASSESSMENT AND PLAN: 1. Achalasia. Expecting to try and implement Botox injection tomorrow. Continue tube feeding. He seems to be tolerating a low rate a little better. We have stopped the Clinimix. He is getting adequate protein calorie nutrition. 2. Constipation. Better. Continue his regimen. 3. Laryngeal cancer, status post tracheostomy. Receiving humidified oxygen. 4. Thrombosis, left leg. Continue anticoagulant. 5. History of hypothyroidism. He appears euthyroid. Continue Synthroid 50 mcg daily. 6. Still some periods of delirium and agitation, but this overall has improved. His blood pressure has remained up. He has not required pressors. Looking over his orders, will continue present regimen. He is on Protonix 40 mg every 24 hours intravenously. He is getting Lasix 40 mg intravenously daily. He is on Cardizem drip. He is getting digoxin 125 mcg daily and aspirin 81 mg a day. He is on vancomycin and meropenem, and he is getting Lovenox 70 mg subcutaneously every 12 hours. His chest x-ray from 02/24/2018 shows slight improvement. Will repeat another chest x-ray tomorrow, as well as CBC and a Chem-22. cc: Len Borja MD
[2018-02-26] MEDS: D5 1/2 NS + KCL 20 MEQ 1,000 ML IV SCH ×2 (08:50→21:11)
[2018-02-26] MEDS: LASIX IV SCH (08:51)
[2018-02-26] MEDS: MERREM 500 MG in NS 50 ML IV SCH ×3 (08:51→23:45)
[2018-02-26] MEDS: LACTULOSE PO SCH (08:51)
[2018-02-26] MEDS: ASPIRIN NG SCH (08:52)
[2018-02-26] MEDS: LANOXIN NG SCH (08:52)
[2018-02-26] MEDS: VANCOMYCIN 1 GM/NS 1 GM/250 ML IVPB IV SCH (10:11)
[2018-02-26] MEDS: HALDOL IM PRN (10:11)
[2018-02-26] MEDS: PROTONIX IV SCH (15:21)
--- NOTE | 2018-02-26 16:20 | Diag Imaging Result Doc PS360 ---
EXAM: CHEST/ABD TUBE PLACEMENT INDICATION: NG tube placement TECHNIQUE: One view COMPARISON: 02/26/2018 FINDINGS: There is an NG tube that projects well below the diaphragm and is assumed to be in the lumen of stomach in the expected position. Limited views of the upper abdomen are essentially stable, otherwise. IMPRESSION: NG tube identified in the expected position. Electronically signed by Zacarias Beverly 02/26/2018 4:18 PM
--- NOTE | 2018-02-26 16:22 | Diag Imaging Result Doc PS360 ---
EXAM: KUB ABDOMEN INDICATION: possible obstruction TECHNIQUE: One view COMPARISON: 02/20/2018 FINDINGS: There is an NG tube is in stable position. There is still retained barium in the colon from a prior study. There appears to be a left femoral line in place. There are nonspecific bowel gas and stool patterns. There is no obstructive pattern identified. There is an IVC filter in stable position. IMPRESSION: Nonspecific abdomen. Electronically signed by Zacarias Beverly 02/26/2018 4:20 PM
[2018-02-27] MEDS: DUONEB (A & A) INH SCH ×6 (03:05→23:13)
[2018-02-27] MEDS: ROBINUL IV SCH ×3 (03:31→21:06)
[2018-02-27] MEDS: LOPRESSOR IV SCH ×4 (03:31→21:07)
[2018-02-27] MEDS: REGLAN LIQUID PO SCH ×3 (05:06→21:06)
[2018-02-27 05:14] LABS: ALLEN TEST YES; BE 19.1 mmoll (-3.0-3.0); BLOOD TYPE ARTERIAL; HCO3-(ACT) 39.8 mmoll (20.0-26.0); METHB 0.4 % (0.0-1.5); MODALITY COOL AEROSOL; O2HB 96.7 % (95.0-99.0); PCO2(98.6) 47 mmHg (35-45); PO2(98.6) 120 mmHg (60-100); SAMPLE BLOOD; SAO2 99.6 % (95.0-100.0); THB 7.9 g/dL (11.5-17.4); pH(98.6) 7.57 (7.35-7.45)
[2018-02-27 05:21] LABS: HEMATOCRIT 24.4 % (42.0-52.0); HEMOGLOBIN 7.7 g/dL (14.0-18.0); LYMPH# 0.35 X1000 (1.2-3.4); LYMPH% 8.7 % (20.5-51.1); MCH 33.3 PG (27-31); MCHC 31.6 g/dL (33-37); MCV 105.6 FL (81-99); MONO# 0.16 X1000 (0.11-0.59); MPV 12.7 FL (7.4-10.4); NEUT# 3.53 X1000 (1.4-6.5); NEUT% 87.3 % (42.2-75.2); PLT 63 X1000 (130-400); RBC 2.31 XMIL (4.7-6.1); RDW 16.9 % (11.5-14.5); WBC 4.04 X1000 (4.8-10.8)
[2018-02-27 05:34] LABS: AGAP 9; ALB/GLOB RATIO 1.7; ALBUMIN 2.9 g/dL (3.5-5.0); ALKALINE PHOSPHATASE 137 U/L (32-122); BUN 32 mg/dL (8-22); CALCIUM 8.1 mg/dL (8.8-10.2); CHLORIDE 100 mmol/L (98-107); COSMO 297; CREATININE 0.7 mg/dL (0.7-1.2); ESTIMATED GFR > 60; GLUCOSE 94 mg/dL (70-104); GOT 24 U/L (10-34); GPT 19 U/L (10-44); POTASSIUM 3.6 mmol/L (3.5-5.1); SODIUM 146 mmol/L (136-145); TCO2 37 mmol/L (25-35); TOTAL BILIRUBIN 1.73 mg/dL (0.20-1.00); TOTAL PROTEIN 4.6 g/dL (6.3-8.3)
[2018-02-27 05:38] LABS: INR 1.18
[2018-02-27 05:39] LABS: PTT 38.9 Seconds (22.3-41.8)
[2018-02-27 05:50] LABS: LYMPHS 12 % (21-51); MICROCYTOSIS 1+; MONO 2 % (1-9); SEGS 86 % (42-75)
[2018-02-27] MEDS: SOLU-CORTEF IV SCH ×3 (06:35→21:06)
[2018-02-27] MEDS: SODIUM CHLORIDE 0.9% INJ PRN (06:35)
[2018-02-27] MEDS: SYNTHROID IV SCH (06:36)
--- NOTE | 2018-02-27 07:15 | Diag Imaging Result Doc PS360 ---
EXAM: CHEST-PORTABLE 02/27/2018 HISTORY: pneumonia TECHNIQUE: AP portable at 0518 COMMENT: There is an NG tube with its tip in the stomach. There is a tracheostomy tube. There is atelectasis and/or pneumonia in the left lower lobe and cardiomegaly. There is mild interstitial pulmonary edema and bilateral pleural effusions. The latter has improved somewhat since the previous study of 02/24/2018. IMPRESSION: Slightly improved pleural effusions. Residual pulmonary edema and left lower lobe atelectasis versus pneumonia. Electronically signed by Tomi Jiang 02/27/2018 7:13 AM
[2018-02-27] MEDS: D5 1/2 NS + KCL 20 MEQ 1,000 ML IV SCH ×2 (09:27→21:05)
[2018-02-27] MEDS: LASIX IV SCH (09:28)
[2018-02-27] MEDS: LANOXIN NG SCH (09:28)
[2018-02-27] MEDS: ASPIRIN NG SCH (09:29)
[2018-02-27] MEDS: MERREM 500 MG in NS 50 ML IV SCH ×2 (09:29→15:53)
[2018-02-27] MEDS: LACTULOSE PO SCH (09:29)
--- NOTE | 2018-02-27 09:40 | PROGRESS NOTE ---
DATE: 02/27/2018 SUBJECTIVE: Mr. Gutierrez is awake and appears to be comfortable. We shut off his tube feeding yesterday as he had some tube feeding that regurgitated up through his nose after he was being cleaned up and laying flat, so we turned off tube feeding in anticipation of having Botox injection today. OBJECTIVE: Vitals: Temperature 97.6 degrees, pulse 88, respirations 18, blood pressure 111/69. Eyes: Pupils are equal. No distended neck veins. Lungs: Clear in all lung noel. Cardiovascular: Regular rhythm and rate without murmur or S3. Abdomen: Soft. Skin: Warm and dry. : Urine output 3900 mL. LABORATORY: White count 4040, hematocrit is 24, hemoglobin 7.7, platelet count 63,000. Sodium 146, potassium 3.6, chloride 100. BUN 32, creatinine 0.7. ASSESSMENT AND PLAN: 1. Achalasia. We are going to try Botox injection today and then try and resume his tube feeding. We had stopped it because he had concern about possible aspiration yesterday. He is off of his Clinimix. 2. Constipation. Better. Continue bowel regimen. 3. Laryngeal cancer, status post tracheostomy. He is on humidified tracheal oxygen. 4. Thrombosis of left leg. He is on anticoagulant, full dose Lovenox. 5. History of hypothyroidism. He appears to be euthyroid, getting Synthroid 50 mcg daily. 6. Delirium and agitation, which seem to be lessening, so I will continue his present regimen. 7. Watching his hematocrit and hemoglobin which appear to be stable, but he does have anemia. cc: Len Borja MD
[2018-02-27] MEDS ORDERED: BOTOX SCH ×2 (11:00→12:00)
[2018-02-27] MEDS ORDERED: SODIUM CHLORIDE 0.9% ONE (12:08)
[2018-02-27] MEDS ORDERED: SODIUM CHLORIDE 0.9% 20 ML ONE (12:25)
[2018-02-27] MEDS ORDERED: XYLOCAINE-MPF 2% ONE (12:25)
[2018-02-27] MEDS ORDERED: NEO-SYNEPHRINE ONE (12:25)
[2018-02-27] MEDS ORDERED: ROBINUL ONE (12:25)
[2018-02-27] MEDS ORDERED: DIPRIVAN 1% ONE (12:26)
[2018-02-27] MEDS ORDERED: BOTOX ONE ×2 (13:45)
[2018-02-27] MEDS: PROTONIX IV SCH (14:00)
--- NOTE | 2018-02-27 14:46 | OPERATIVE NOTE ---
PROCEDURE DATE: 02/27/2018 PROCEDURES: 1. Esophagogastroduodenoscopy. 2. Esophageal biopsy. 3. Esophageal dilation. 4. Botox injection. MEDICATION USED: MAC as per Anesthesia. SCOPE USED: Pentax gastroscope. PREOPERATIVE DIAGNOSES: 1. Dysphagia. 2. Achalasia. 3. Status post tracheostomy. POSTOPERATIVE DIAGNOSES: 1. Andie esophagitis. 2. Achalasia. 3. Mild gastritis. HISTORY: This is a 72-year-old gentleman currently in the ICU. He has had recurrent aspiration pneumonia. He currently has a tracheostomy. He has not been able to take anything p.o. He has been on tube feedings for some time now. Imaging studies have suggested possible achalasia. He is here for EGD and Botox injection. The patient is not a candidate for surgical intervention. DESCRIPTION OF PROCEDURE: Informed consent was obtained from the patient's [id number]. Procedure, risks, benefits, alternatives were explained in layman's terms. They understood. All of their pertinent questions were answered. Patient was brought to the endoscopy unit and was premedicated as per Anesthesia. After adequate sedation, while he was lying in left lateral position, the gastroscope was introduced into the posterior pharynx and advanced under direct vision into the esophagus. Esophagus showed evidence of Andie esophagitis. There was whitish exudate adherent to the mucosa throughout the esophagus. Using a cold biopsy forceps, biopsy was obtained to check for Andie and confirmed Andie esophagitis. The Z-line was noted at about 39 cm from the incisor. It was slightly narrow. However, the pressure could not be measured and did not feel as if he had excessive pressure in the lower esophageal sphincter. At this point, I went ahead and introduced the scope into the stomach. Stomach was examined both in straight and retroflexed view, which revealed normal cardia, fundus. In the body, however, there was evidence of previous PEG tube placement. No ulcer, AVM, or masses were seen. Scope was then passed through the normal pylorus, into the duodenal bulb, and then to the second portion of duodenum which appeared to be normal. The scope was withdrawn back into the esophagus where the lower esophageal sphincter was dilated using the pneumatic dilation balloon up to 20 mm. The dilation was done for a minute. After that, I used a sclerotherapy needle and injected 25 units of Botox in the 4 quadrants about a centimeter above the Z-line into the lower esophageal sphincter. No complication was noted. Scope was then withdrawn. Patient tolerated the procedure well. No complications noted. Patient was then transferred to the recovery area in a stable condition. IMPRESSIONS: 1. Andie esophagitis. 2. Achalasia. 3. Surgical changes suggestive of previous gastrostomy. RECOMMENDATION: I would start him on Diflucan 100 mg p.o. every day for 10 days. Follow up the biopsy report and start him on a full liquid diet and advance as tolerated. We will follow. cc: Christopher Del Rosario MD
[2018-02-28] MEDS: MERREM 500 MG in NS 50 ML IV SCH ×4 (01:33→23:45)
[2018-02-28] MEDS: VANCOMYCIN 1 GM/NS 1 GM/250 ML IVPB IV SCH (03:08)
[2018-02-28] MEDS: LOPRESSOR IV SCH ×4 (03:08→21:00)
[2018-02-28] MEDS: LOVENOX SUBQ SCH ×2 (03:09→13:34)
[2018-02-28] MEDS: DUONEB (A & A) INH SCH ×6 (03:46→23:34)
[2018-02-28] MEDS: SOLU-CORTEF IV SCH (05:55)
[2018-02-28] MEDS: ROBINUL IV SCH ×3 (05:56→20:00)
[2018-02-28] MEDS: REGLAN LIQUID PO SCH ×2 (05:57→06:25)
[2018-02-28] MEDS: SODIUM CHLORIDE 0.9% INJ PRN (05:58)
[2018-02-28] MEDS: SYNTHROID IV SCH (06:03)
[2018-02-28 06:17] LABS: HEMATOCRIT 24.8 % (42.0-52.0); HEMOGLOBIN 7.9 g/dL (14.0-18.0); MCH 33.8 PG (27-31); MCHC 31.9 g/dL (33-37); MPV 12.8 FL (7.4-10.4); RBC 2.34 XMIL (4.7-6.1); WBC 3.68 X1000 (4.8-10.8)
[2018-02-28 06:22] LABS: AGAP 6; ALB/GLOB RATIO 1.7; ALKALINE PHOSPHATASE 149 U/L (32-122); BUN 26 mg/dL (8-22); CALCIUM 8.3 mg/dL (8.8-10.2); CHLORIDE 100 mmol/L (98-107); COSMO 292; CREATININE 0.8 mg/dL (0.7-1.2); ESTIMATED GFR > 60; GLUCOSE 100 mg/dL (70-104); GOT 25 U/L (10-34); GPT 22 U/L (10-44); POTASSIUM 3.4 mmol/L (3.5-5.1); SODIUM 144 mmol/L (136-145); TCO2 38 mmol/L (25-35); TOTAL BILIRUBIN 1.93 mg/dL (0.20-1.00); TOTAL PROTEIN 4.8 g/dL (6.3-8.3)
--- NOTE | 2018-02-28 06:52 | Diag Imaging Result Doc PS360 ---
EXAM: CHEST-PORTABLE HISTORY: dyspnea TECHNIQUE: Portable chest single view COMPARISON: 02/27/2018 FINDINGS: The nasogastric tube has been removed. No change in tracheostomy tube. The heart remains enlarged. There are small pleural effusions. Dense infiltrates in the lower left lung. Mild pulmonary edema is present. IMPRESSION: Mild interval worsening. Electronically signed by Ren Ortega 02/28/2018 6:50 AM
[2018-02-28] MEDS ORDERED: POTASSIUM CHLORIDE 40 MEQ/SWI 40 MEQ/100 ML IVPB IV ONE (07:15)
--- NOTE | 2018-02-28 07:55 | CARDIOLOGY PROGRESS NOTE ---
DATE: 02/28/2018 SUBJECTIVE: Mr. Gutierrez has no complaints this morning. He did seem a little bit confused but follows simple commands. PHYSICAL EXAMINATION: Vital Signs: He is afebrile. His heart rate is in the 60s to 80s. His blood pressure is 118/85. General: He is in no acute distress. Cardiovascular: He appears to be in an irregularly irregular rhythm. Telemetry currently shows atrial fibrillation. He has no obvious murmurs but there are lots of upper airway noise making exam difficult. He has no lower extremity edema. Chest: His chest exam has coarse upper airway noise. No increased work of breathing. Abdomen: Soft, nontender. PERTINENT DATA: His chest x-ray suggests mild pulmonary edema. LABORATORY DATA: His laboratory data demonstrates a white count of 3.7, hematocrit 24, platelet count is 66,000. His sodium is 144, potassium 3.4. BUN 26, creatinine 0.8. ASSESSMENT: Mr. Gutierrez is a 72-year-old gentleman with aspiration pneumonia, atrial fibrillation, ventricular tachycardia. PLAN: When able to reliably take oral intake, the patient may be transitioned over to oral medications including metoprolol, digoxin, and Lasix. We will try to re-initiate his amiodarone which had been discontinued quite some time ago. This was being used for his ventricular tachycardia. I will place him on 400 mg daily. Please contact us if we can be of further assistance with this patient. cc: Abel Anthony MD
[2018-02-28] MEDS ORDERED: ASPIRIN PO SCH (09:00)
[2018-02-28] MEDS: CORDARONE PO SCH (09:04)
[2018-02-28] MEDS: LACTULOSE PO SCH (09:05)
[2018-02-28] MEDS: LANOXIN PO SCH (09:05)
[2018-02-28] MEDS: LASIX IV SCH (09:06)
--- NOTE | 2018-02-28 10:53 | PROGRESS NOTE ---
DATE: 02/28/2018 SUBJECTIVE: Patient is awake and alert. No acute distress. Nurse states he tolerated a liquid diet for breakfast without dysphagia or choking. He had an EGD on 02/27/2018. Findings showed Andie esophagitis, achalasia and mild gastritis. Botox injection was performed for achalasia. OBJECTIVE: Vital Signs: Temperature 97.5 degrees, pulse 76, respirations 16, blood pressure 106/57. General: Patient is awake, alert, no acute distress. LABORATORY: Hematology: WBC 3.68, hemoglobin 7.9, hematocrit 24.8, MCV 106, platelets 66,000. Chemistry: Sodium 144, potassium 3.4, chloride 100, CO2 38, BUN 26, creatinine 0.8, glucose 100. ASSESSMENT AND PLAN: 1. Dysphagia status post EGD with Botox injection. 2. Achalasia. 3. History of laryngeal cancer, status post tracheostomy. 4. Anemia. We will continue to monitor. 5. Constipation. Continue bowel laxative regimen. 6. EGD findings of andie esophagitis, gastritis and achalasia. We will start Diflucan 100 mg daily for 10 days. Continue PPI and Reglan. Patient so far is tolerating a liquid diet without complications. We will continue to follow and further plans to be made according to the patient's progress. I have discussed this case with Dr. Del Rosario. Dictated by BOB Hankins for Christopher Del Rosario MD cc: BOB Winston MD
[2018-02-28] MEDS: REGLAN PO SCH ×2 (11:18→15:55)
[2018-02-28] MEDS: DIFLUCAN PO SCH (11:18)
[2018-02-28] MEDS: PROTONIX IV SCH (13:28)
[2018-02-28] MEDS: D5 1/2 NS + KCL 20 MEQ 1,000 ML IV SCH ×2 (13:28→23:45)
[2018-02-28] MEDS: SODIUM CHLORIDE 0.9% INJ SCH (13:28)
[2018-02-28] MEDS: ZOFRAN IV PRN (18:35)
--- NOTE | 2018-02-28 23:30 | PROGRESS NOTE ---
DATE: 02/28/2018 SUBJECTIVE: The patient is resting comfortably in bed. He has no complaints. OBJECTIVE: Vital Signs: Temperature 98.6 degrees, blood pressure 119/71, heart rate 79, respirations 18, oxygen saturation 97% on a trach collar. General: This is a chronically ill- appearing elderly male, lying in bed, in no acute distress. Heart: S1, S2 normal. Regular rate and rhythm. Lungs: Equal air entry bilaterally. No crackles. No rales. Abdomen: Positive bowel sounds. Soft, nontender, nondistended. Extremities: No edema. No cyanosis. Neurologic: The patient is alert and oriented. LABS: White blood cell count 3.6, hemoglobin 7.9, hematocrit 24, platelets 66,000. Sodium 144, potassium 3.4, chloride 100, CO2 38, BUN 26, creatinine 0.8, glucose 100. Total bilirubin 1.9, AST 25, ALT 22, alkaline phosphatase 149. ASSESSMENT AND PLAN: 1. Aspiration pneumonia. Continue with antibiotic therapy. 2. Volume overload. Improved. The patient is now on daily diuretic therapy. 3. Dysphagia, status post esophageal dilation with Botox injection. We will continue to monitor the patient's progress. The patient is currently on a liquid diet. 4. Pancytopenia. Aware. We will transfuse the patient p.r.n. 5. Hypokalemia. Will replace the patient's potassium. 6. Laryngeal cancer, status post laryngectomy. Aware. 7. Atrial fibrillation. The patient is rate controlled. Continue on the current treatment regimen. 8. Constipation. Continue with scheduled laxative therapy. 9. Gastrointestinal prophylaxis. Continue on IV Protonix. cc: Lilian Regan MD
[2018-03-01] MEDS: DUONEB (A & A) INH SCH ×6 (03:34→23:30)
[2018-03-01] MEDS: LOVENOX SUBQ SCH (03:58)
[2018-03-01] MEDS: LOPRESSOR IV SCH ×4 (03:58→22:34)
[2018-03-01] MEDS: ROBINUL IV SCH ×3 (03:58→21:35)
[2018-03-01] MEDS ORDERED: BLISTEX MEDICATED BERRY LIP BALM TOP PRN (04:23)
[2018-03-01] MEDS: REGLAN PO SCH ×3 (06:08→15:28)
[2018-03-01] MEDS: SYNTHROID IV SCH (06:17)
[2018-03-01] MEDS: SODIUM CHLORIDE 0.9% INJ PRN (06:17)
[2018-03-01 06:18] LABS: HEMATOCRIT 25.3 % (42.0-52.0); HEMOGLOBIN 7.8 g/dL (14.0-18.0); MCH 32.6 PG (27-31); MCHC 30.8 g/dL (33-37); MCV 105.9 FL (81-99); MPV 12.5 FL (7.4-10.4); RBC 2.39 XMIL (4.7-6.1); RDW 16.9 % (11.5-14.5); WBC 3.64 X1000 (4.8-10.8)
[2018-03-01 06:59] LABS: AGAP 6; ALB/GLOB RATIO 1.5; ALBUMIN 2.7 g/dL (3.5-5.0); ALKALINE PHOSPHATASE 137 U/L (32-122); BUN 21 mg/dL (8-22); CALCIUM 7.8 mg/dL (8.8-10.2); CHLORIDE 102 mmol/L (98-107); COSMO 291; CREATININE 0.7 mg/dL (0.7-1.2); ESTIMATED GFR > 60; GLUCOSE 80 mg/dL (70-104); GOT 22 U/L (10-34); GPT 21 U/L (10-44); MAGNESIUM 1.9 mg/dL (1.5-2.7); PHOSPHORUS 2.5 mg/dL (2.7-4.5); SODIUM 145 mmol/L (136-145); TCO2 37 mmol/L (25-35); TOTAL BILIRUBIN 1.93 mg/dL (0.20-1.00); TOTAL PROTEIN 4.5 g/dL (6.3-8.3)
[2018-03-01] MEDS: MERREM 500 MG in NS 50 ML IV SCH ×2 (08:28→15:28)
[2018-03-01] MEDS: ALBUMIN 25% IV SCH (08:28)
--- NOTE | 2018-03-01 09:04 | Diag Imaging Result Doc PS360 ---
EXAM: CHEST-PORTABLE HISTORY: dyspnea TECHNIQUE: Chest single view COMPARISON: 02/28/2018 FINDINGS: The tracheostomy tube is unchanged. There are dense bilateral infiltrates fairly similar to the prior study. There are also small pleural effusions, left is larger than the right. Pulmonary edema persists. IMPRESSION: No interval improvement. Electronically signed by Ren Ortega 03/01/2018 9:01 AM
[2018-03-01] MEDS: LACTULOSE PO SCH (09:15)
[2018-03-01] MEDS: DIFLUCAN PO SCH (09:15)
[2018-03-01] MEDS: LANOXIN PO SCH (09:15)
[2018-03-01] MEDS: CORDARONE PO SCH (09:16)
[2018-03-01] MEDS: LASIX IV SCH (09:16)
--- NOTE | 2018-03-01 09:28 | Diag Imaging Result Doc PS360 ---
ABDOMEN FLAT/UPRIGHT - 03/01/2018 INDICATION: constipation COMPARISON: 02/26/2018 FINDINGS: There is a left femoral line in good position. Stable IVC filter. There is a nonobstructive bowel gas pattern. There is dense material probably contrast throughout the colon and rectum. No evidence of free air. IMPRESSION: No acute disease. No significant constipation. Electronically signed by Justin Trujillo 03/01/2018 9:25 AM
[2018-03-01 10:05] LABS: URINE SOURCE CATH
[2018-03-01 10:19] LABS: BILIRUBIN URINE NEGATIVE (NEGATIVE); BLOOD URINE LARGE (NEGATIVE); COLOR ORANGE; GLUCOSE URINE NEGATIVE (NEGATIVE); KETONE URINE NEGATIVE (NEGATIVE); LEUKOCYTES URINE MODERATE (NEGATIVE); NITRITE URINE NEGATIVE (NEGATIVE); PROTEIN URINE 30 mg/dL (NEGATIVE); SP GRAVITY URINE 1.005; TURBIDITY URINE HAZY (CLEAR); UROBILINOGEN URINE 2 mg/dL (NORMAL)
[2018-03-01 10:27] LABS: UR EPITHELIAL CELLS <10 /HPF (<10); URINE BACTERIA NEGATIVE /HPF; URINE RBC TNTC /HPF (<10)
[2018-03-01 10:33] LABS: URINE YEAST PRESENT
[2018-03-01 11:24] LABS: IRON SATURATION 29 %; TIBC 110 ug/dL; TOTAL IRON 32 ug/dL (53-167); UNBOUND IRON 78 ug/dL (112-346)
[2018-03-01 11:38] LABS: ALLEN TEST NO; BE 14.5 mmoll (-3.0-3.0); BLOOD TYPE ARTERIAL; HCO3-(ACT) 36.2 mmoll (20.0-26.0); METHB 0.2 % (0.0-1.5); O2(CT) 10.2 mL/dL (15.0-23.0); O2HB 94.6 % (95.0-99.0); PO2(98.6) 68 mmHg (60-100); SAMPLE BLOOD; SAO2 97.8 % (95.0-100.0); THB 7.6 g/dL (11.5-17.4); pH(98.6) 7.48 (7.35-7.45)
[2018-03-01 11:44] LABS: MODALITY COOL AEROSOL; PCO2(98.6) 53 mmHg (35-45)
[2018-03-01 12:46] LABS: FERRITIN 1399 ng/mL (30-400)
[2018-03-01] MEDS: PROTONIX IV SCH (14:14)
[2018-03-01] MEDS: SODIUM CHLORIDE 0.9% INJ SCH (14:14)
[2018-03-01] MEDS: VANCOMYCIN 1 GM/NS 1 GM/250 ML IVPB IV SCH (14:14)
--- NOTE | 2018-03-01 15:03 | Diag Imaging Result Doc PS360 ---
US SPLEEN (LIMITED) - 03/01/2018 INDICATION: r/o splenomegaly TECHNIQUE: COMPARISON: None FINDINGS: The spleen is normal. The spleen measures 9.2 x 9.2 x 3.7 cm. IMPRESSION: Negative exam. Electronically signed by Justin Trujillo 03/01/2018 3:01 PM
[2018-03-01] MEDS ORDERED: MILK OF MAGNESIA PO ONE (15:16)
[2018-03-01] MEDS: ARIXTRA SUBQ SCH (16:14)
--- NOTE | 2018-03-01 18:59 | PROGRESS NOTE ---
DATE: 03/01/2018 SUBJECTIVE: Patient was resting with eyes closed in no acute distress. I did not wake him. I have spoken with the nurse who states he had episode of vomiting after breakfast yesterday. This was after being laid down to give him his bath. He was held n.p.o. for most of the day yesterday. His diet has been changed to a full liquid diet. So far, he has not had any vomiting today. Patient is status post EGD with Botox injection on 02/27/2018. Nurse reports that he has not had a bowel movement since 02/27. Abdominal x-ray did not show any significant constipation. OBJECTIVE: Vital Signs: Temperature is 98.4 degrees, pulse 78, respirations 15, blood pressure 108/80. General: Patient was asleep with eyes closed in no acute distress. LABORATORY: Hematology: WBC 3.64, hemoglobin 7.8, hematocrit 25.3. Chemistry: Sodium 145, potassium 4, chloride 102, CO2 of 37, BUN 21, creatinine 0.7, glucose 80, calcium 7.8, phosphorus 2.5, magnesium 1.9, and iron 32. ASSESSMENT AND PLAN: 1. Aspiration pneumonia on antibiotics. 2. Dysphagia. Patient is status post EGD with Botox injection. Follow strict anti-reflux measures. Continue PPI. Continue Diflucan and continue Reglan before meals. 3. Constipation. Patient is on laxative regimen. Add a dose of milk of magnesia today. 4. History of laryngeal cancer status post laryngectomy. Will continue to follow. Further plans to be made according to his progress. Recommend to keep his bed elevated especially after eating and for at least 1 to 2 hours after. Continue PPI and Reglan. Continue Diflucan for 10 days. Add a dose of milk of magnesia today. 5. Further plans will be made according to his progress. 6. I have discussed this case with Dr. Del Rosario. Dictated by BOB Hankins for Christopher Del Rosario MD cc: BOB Winston MD
--- NOTE | 2018-03-01 20:13 | PROGRESS NOTE ---
DATE: 03/01/2018 SUBJECTIVE: The patient is resting comfortably in bed. The patient was noted to have a period of desaturation overnight and his flow rate was increased to 40%. OBJECTIVE: Vital signs: Temperature 98.6 degrees, blood pressure 95/63, heart rate 83, respirations 20, O2 saturation 94% on the trach collar. General: This is a chronically ill- appearing elderly male lying in bed in no acute distress. HEENT: Head normocephalic, atraumatic. Heart: S1, S2 normal. Regular rate and rhythm. Lungs: Diffuse expiratory wheezes, no crackles. Abdomen: Positive bowel sounds. Soft, nontender, nondistended. Extremities: Two plus edema in the upper extremities, trace edema in the lower extremities. The patient's extremities are cool to touch. Neurologic: The patient is alert and oriented. LABORATORY DATA: White blood cell count 3.6, hemoglobin 7.8, hematocrit 25, platelets 65,000. Sodium 145, potassium 4, chloride 102, CO2 of 37. BUN 21, creatinine 0.7, glucose 80, ferritin 1399, albumin 2.7, B12 of 478, folate 15. ASSESSMENT AND PLAN: 1. Acute hypoxemic respiratory failure. The patient is currently on a trach collar. 2. Aspiration pneumonia. The patient is on antibiotic therapy, plus bronchodilator therapy. 3. Dysphagia, status post esophageal dilation with Botox injection. We will monitor the patient's progress closely. The patient is to be sitting straight up with each meal and an aspiration precautions have been initiated. 4. Pancytopenia. Hematology has been consulted. 5. Laryngeal cancer status post laryngectomy. Aware. 6. Atrial fibrillation. The patient is rate controlled. 7. Left lower extremity deep venous thrombosis. Due to the patient's thrombocytopenia, we will start Arixtra. 8. Constipation. Continue with scheduled laxative therapy. 9. Gastrointestinal prophylaxis. Continue on IV Protonix. cc: Lilian Regan MD
[2018-03-02] MEDS: MERREM 500 MG in NS 50 ML IV SCH ×3 (00:03→16:04)
[2018-03-02] MEDS: DUONEB (A & A) INH SCH ×6 (03:24→23:14)
[2018-03-02] MEDS: ROBINUL IV SCH ×3 (03:58→20:32)
[2018-03-02] MEDS: LOPRESSOR IV SCH ×4 (03:58→20:32)
--- NOTE | 2018-03-02 04:02 | HEMO/ONC CONSULTATION ---
DATE: 03/01/2018 CHIEF COMPLAINT: We have been consulted for further management and evaluation of the patient's thrombocytopenia. HISTORY OF PRESENT ILLNESS: Mr. Gutierrez is a 72-year-old male with a very complex medical history. The patient resides normally at [facility]. The patient has a prolonged medical history where he has had multiple stays in the hospital recently. The patient has been at [facility] as well over the last 6 months. The patient also has a history of laryngeal cancer and is status post tracheostomy multiple years ago. The patient presented to the emergency department on 02/05/2018 due to shortness of breath after pulling out trach. The patient has been admitted and found to have aspiration pneumonia, volume overload, dysphagia, and pancytopenia and is being treated. PAST MEDICAL HISTORY: Chronic respiratory failure, history of [id number] lung cancer and laryngeal cancer status post laryngectomy, chronic kidney disease, chronic thrombocytopenia, recent history of left lower extremity DVT status post inferior vena cava filter placement, coronary artery disease, recent STEMI in October 2017, chronic atrial fibrillation, hypothyroidism, GERD, probable COPD. PAST SURGICAL HISTORY: Tracheostomy placement, stent placements, laryngectomy, placement of IVC filter. SOCIAL HISTORY: The patient currently does not abuse any tobacco. He has a history of tobacco abuse, though. He denies any alcohol or illicit drug use. FAMILY HISTORY: Noncontributory. HOME MEDICATIONS: Compiled and on chart at this time. ALLERGIES: No known drug allergies. REVIEW OF SYSTEMS: Negative other than as mentioned in HPI. PHYSICAL EXAMINATION: Vital Signs: Temperature 98.4 degrees, heart rate 67, respiratory rate 15, blood pressure 101/55, saturating 95% on trach collar. General: Patient awake , lying in bed. No acute distress noted. HEENT: Anicteric. Pupils PERRLA. Mucous membranes dry. Neck: Supple. Trachea midline. Tracheostomy in place. Lymph node survey: No palpable lymphadenopathy. Chest: Bilateral breath sounds coarse bilaterally. Cardiovascular: Regular rate and rhythm. Abdomen: Soft, nontender. Bowel sounds present in all 4 quadrants. Skin: Warm, dry, and intact. No petechiae. Extremities: No clubbing, edema, or cyanosis. Neurologic: Alert and oriented x2. No focal deficits noted. LABORATORY DATA: White blood cell count is 3.64, hemoglobin 7.8, hematocrit 25.3, platelet count 65,000. Potassium 4.0, BUN 21, creatinine 0.7. ASSESSMENT AND PLAN: 1. Thrombocytopenia. The patient has a history of chronic thrombocytopenia. A spleen ultrasound has been ordered at this time. Most likely, this thrombocytopenia is caused by peripheral consumption due to his multiple medical problems at this time. We are waiting on spleen ultrasound and HIT labs at this time. We will continue to monitor and follow up as needed. Can transfuse for platelets less than 20,000 or for any signs of bleeding. 2. Aspiration pneumonia. Continue antibiotics as ordered per primary team and Pulmonology. 3. Volume overload. Continue daily diuretics per primary medical team. 4. Laryngeal cancer, status post laryngectomy. Aware. 5. Atrial fibrillation, rate controlled. Continue recommendations per primary medical team. Plan of care discussed with Dr. Travis. Dictated by BOB García for Grady Travis MD Patient and examined. Patient had low platelets on admission. It has slowly trended down. No acute drop as would be expected with HIT. Labs ordered. Change lovenox to arixtra for now. Grady Travis MD cc: BOB Garcaí MD [facility]
[2018-03-02 04:44] LABS: ALLEN TEST YES; BE 14.5 mmoll (-3.0-3.0); BLOOD TYPE ARTERIAL; HCO3-(ACT) 36.3 mmoll (20.0-26.0); METHB 1.2 % (0.0-1.5); O2(CT) 10.4 mL/dL (15.0-23.0); O2HB 96.1 % (95.0-99.0); PO2(98.6) 113 mmHg (60-100); SAMPLE BLOOD; SAO2 99.6 % (95.0-100.0); THB 7.5 g/dL (11.5-17.4); pH(98.6) 7.48 (7.35-7.45)
[2018-03-02 05:00] LABS: MODALITY COOL AEROSOL; PCO2(98.6) 53 mmHg (35-45)
[2018-03-02 05:48] LABS: HEMATOCRIT 19.4 % (42.0-52.0); HEMOGLOBIN 7.1 g/dL (14.0-18.0); MCH 39.7 PG (27-31); MCHC 36.6 g/dL (33-37); MCV 108.4 FL (81-99); MPV 12.6 FL (7.4-10.4); RBC 1.79 XMIL (4.7-6.1); WBC 3.42 X1000 (4.8-10.8)
[2018-03-02 06:09] LABS: AGAP 9; ALBUMIN 3.2 g/dL (3.5-5.0); ALKALINE PHOSPHATASE 131 U/L (32-122); BUN 20 mg/dL (8-22); CALCIUM 8.1 mg/dL (8.8-10.2); CHLORIDE 103 mmol/L (98-107); COSMO 294; CREATININE 0.8 mg/dL (0.7-1.2); ESTIMATED GFR > 60; GLUCOSE 78 mg/dL (70-104); GOT 19 U/L (10-34); GPT 19 U/L (10-44); POTASSIUM 3.5 mmol/L (3.5-5.1); SODIUM 147 mmol/L (136-145); TCO2 35 mmol/L (25-35); TOTAL BILIRUBIN 2.15 mg/dL (0.20-1.00); TOTAL PROTEIN 4.8 g/dL (6.3-8.3)
[2018-03-02] MEDS: REGLAN PO SCH ×3 (06:43→16:03)
[2018-03-02] MEDS: SODIUM CHLORIDE 0.9% INJ PRN (06:44)
[2018-03-02] MEDS: SYNTHROID IV SCH (06:44)
--- NOTE | 2018-03-02 07:30 | Diag Imaging Result Doc PS360 ---
EXAM: CHEST-PORTABLE 03/02/2018 HISTORY: dyspnea TECHNIQUE: AP portable at 0502 COMMENT: There is shift of the mediastinum to the left. There is opacification of most of the left lung and good portion of the right lower lobe. There are apparent bilateral pleural effusions with the right effusion being larger than on 03/01/2018. IMPRESSION: Worsened right pleural effusion and basilar atelectasis versus pneumonia. Atelectasis versus pneumonia throughout most of the left lung with volume loss. The possibility of a mucous plug on the left cannot be excluded. Electronically signed by Tomi Jiang 03/02/2018 7:28 AM
[2018-03-02] MEDS: LACTULOSE PO SCH (08:48)
[2018-03-02] MEDS: ARIXTRA SUBQ SCH (08:48)
[2018-03-02] MEDS: ALBUMIN 25% IV SCH (08:49)
[2018-03-02] MEDS: LANOXIN PO SCH (08:49)
[2018-03-02] MEDS: CORDARONE PO SCH (08:49)
[2018-03-02] MEDS: DIFLUCAN PO SCH (08:49)
--- NOTE | 2018-03-02 10:16 | HEMO/ONC PROGRESS NOTE ---
DATE: 03/02/2018 SUBJECTIVE: The patient has some slight increase in shortness of breath today. OBJECTIVE: Vital Signs: Temperature of 98.0, heart rate 98, respiratory rate 20 , blood pressure 130/90. Sat 99% on trach collar. General: Patient is awake, lying in bed, in no acute distress noted. HEENT: Anicteric. Pupils PERRLA. Oral mucous membranes dry. Cardiovascular: S1, S2. Regular rate and rhythm. Chest: Bilateral breath sounds with wheezing bilaterally. Abdomen is soft, nontender. Bowel sounds present in all 4 quadrants. Neurological: Alert and oriented. LABORATORY DATA: White blood cell count 3.42, hemoglobin 7.1, hematocrit 19.4. Potassium 3.5. Platelets are 58,000. Potassium 3.5. BUN 20, creatinine 0.8. RADIOLOGY REPORTS: Chest x-ray shows worsening right pleural effusion and basilar atelectasis versus pneumonia, atelectasis versus pneumonia throughout most of the left lung with volume loss. Possible mucous plugging on the left cannot be excluded. ASSESSMENT AND PLAN: 1. Thrombocytopenia: Today, the platelet counts are 58,000. Spleen is normal in size. It is caused by his peripheral consumption due to his medical condition at this time. Continue to monitor closely. Transfuse for platelets less than 20,000 or for any signs of bleeding. 2. Anemia: Hemoglobin and hematocrit continues to slowly trend downwards. Hemoglobin 7.9 and hematocrit is 19.4. Transfuse as needed. 3. Aspiration pneumonia: Continue recommendations per primary team and pulmonology. Dictated by BOB García for Grady Travis MD Patient seen and examined. As above. Patient platelet counts are a little worse. 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 Will discuss with primary care see if he can challenge him with steroids, if not consider IVIG. Grady Travis M.D. cc: BOB García MD [facility]
[2018-03-02] MEDS ORDERED: NS 250 ML IV ONE (11:30)
[2018-03-02] MEDS: PROTONIX IV SCH (13:11)
[2018-03-02] MEDS: ZOFRAN IV PRN (15:10)
--- NOTE | 2018-03-02 16:01 | PROGRESS NOTE ---
DATE: 03/02/2018 SUBJECTIVE: The patient had another episode of desaturation overnight. He remains on a trach collar. The patient has no complaints at this time. OBJECTIVE: Vital Signs: Temperature 98.9 degrees, blood pressure 103/59, heart rate 75, respirations 17, O2 saturations 100% on a trach collar. Urine output 1.5 L. General: This is a chronically ill-appearing, elderly male lying in bed, in no acute distress. Heart: S1 and S2 normal. Regular rate and rhythm. Lungs: Equal air entry bilaterally. Diffuse wheezing. Abdomen: Positive bowel sounds. Soft, nontender, nondistended. Extremities: No edema. No cyanosis. Neurologic: The patient is alert and oriented x3. LABORATORY DATA: White blood cell count 3.4, hemoglobin 7.1, hematocrit 19, platelets 58,000. Sodium 147, potassium 3.5, chloride 103, CO2 35, BUN 20, creatinine 0.8, glucose 78, total bilirubin 2.1, AST 19, ALT 19, alkaline phosphatase 131, total protein 4.8, albumin 3.2. DIAGNOSTIC STUDIES: Chest x-ray shows worsened right pleural effusion and basilar atelectasis versus pneumonia. Atelectasis versus pneumonia in the left lung. Possible mucous plugging on the left. ASSESSMENT AND PLAN: 1. Acute on chronic hypoxemic respiratory failure. Continue with the trach collar and antibiotic therapy. The patient also has mucous plugging seen on x-ray and chest CT. Will defer to the power crane operator. 2. Aspiration pneumonia. Continue with antibiotic therapy. 3. Dysphagia, status post esophageal dilation with Botox injection. Stable. 4. Pancytopenia. Worse today. Will await further recommendations from the coding advisor. 5. Left lower extremity deep vein thrombosis. The patient is currently on Arixtra. 6. Atrial fibrillation. The patient is rate controlled. 7. Gastrointestinal prophylaxis. Continue with intravenous Protonix. cc: Lilian Regan MD
[2018-03-02] MEDS: D5 1/2 NS 1,000 ML IV SCH (18:20)
[2018-03-03] MEDS: MERREM 500 MG in NS 50 ML IV SCH ×4 (00:15→23:57)
[2018-03-03] MEDS: VANCOMYCIN 1 GM/NS 1 GM/250 ML IVPB IV SCH (02:24)
[2018-03-03] MEDS: DUONEB (A & A) INH SCH ×6 (03:46→23:38)
[2018-03-03] MEDS: LOPRESSOR IV SCH ×4 (04:37→21:39)
[2018-03-03 06:02] LABS: EOS# 0.03 X1000 (0.0-0.7); HEMATOCRIT 26.7 % (42.0-52.0); HEMOGLOBIN 8.5 g/dL (14.0-18.0); LYMPH# 0.32 X1000 (1.2-3.4); LYMPH% 10.5 % (20.5-51.1); MAGNESIUM 2.1 mg/dL (1.5-2.7); MCH 33.6 PG (27-31); MCHC 31.8 g/dL (33-37); MCV 105.5 FL (81-99); MONO# 0.13 X1000 (0.11-0.59); MONO% 4.3 % (1.7-9.3); MPV 12.5 FL (7.4-10.4); NEUT# 2.56 X1000 (1.4-6.5); NEUT% 84.2 % (42.2-75.2); PHOSPHORUS 2.3 mg/dL (2.7-4.5); PLT 57 X1000 (130-400); RBC 2.53 XMIL (4.7-6.1); RDW 17.1 % (11.5-14.5); WBC 3.04 X1000 (4.8-10.8)
[2018-03-03] MEDS: REGLAN PO SCH ×3 (06:02→15:02)
[2018-03-03] MEDS: SYNTHROID IV SCH (06:02)
[2018-03-03] MEDS: SODIUM CHLORIDE 0.9% INJ PRN (06:02)
[2018-03-03] MEDS: ROBINUL IV SCH ×3 (06:04→20:13)
[2018-03-03 06:08] LABS: AGAP 8; ALB/GLOB RATIO 2.8; ALBUMIN 3.3 g/dL (3.5-5.0); ALKALINE PHOSPHATASE 217 U/L (32-122); BUN 14 mg/dL (8-22); CHLORIDE 105 mmol/L (98-107); COSMO 294; CREATININE 0.9 mg/dL (0.7-1.2); ESTIMATED GFR > 60; GLUCOSE 85 mg/dL (70-104); GOT 23 U/L (10-34); GPT 23 U/L (10-44); POTASSIUM 3.6 mmol/L (3.5-5.1); SODIUM 148 mmol/L (136-145); TCO2 35 mmol/L (25-35); TOTAL BILIRUBIN 2.41 mg/dL (0.20-1.00); TOTAL PROTEIN 4.5 g/dL (6.3-8.3)
[2018-03-03] MEDS: D5 1/2 NS 1,000 ML IV SCH (07:34)
--- NOTE | 2018-03-03 07:50 | Diag Imaging Result Doc PS360 ---
EXAM: ABDOMEN FLAT/UPRIGHT INDICATION: r/o obstruction TECHNIQUE: 2 views COMPARISON: 03/01/2018 FINDINGS: The left femoral line is in stable position. Dense material in the colon and rectum suggesting contrast media is essentially stable. There is no obstructive bowel pattern and there is no evidence of large volume free abdominal gas. The abdomen is stable, otherwise. IMPRESSION: Stable abdomen with no definite acute pathology by plain radiograph. Electronically signed by Zacarias Beverly 03/03/2018 7:48 AM
[2018-03-03] MEDS ORDERED: DULCOLAX PR ONE (07:51)
[2018-03-03] MEDS ORDERED: POTASSIUM PHOSPHATE 30 MMOL in NS 250 ML IV ONE (07:52)
--- NOTE | 2018-03-03 08:18 | Diag Imaging Result Doc PS360 ---
EXAM: CHEST-PORTABLE INDICATION: PNA TECHNIQUE: One view COMPARISON: 03/02/2018 FINDINGS: The tracheostomy tube is in stable position. Bilateral pleural effusions are again noted, larger on the left. There is adjacent atelectasis and infiltrate. There is pulmonary edema that is essentially stable. No definite new consolidation is identified. Cardiac silhouette is stable. IMPRESSION: Essentially stable chest. Electronically signed by Zacarias Beverly 03/03/2018 8:16 AM
--- NOTE | 2018-03-03 08:20 | HEMO/ONC PROGRESS NOTE ---
DATE: 03/03/2018 SUBJECTIVE: The patient remains on a tracheostomy collar at this time. Patient has no new complaints at this time. OBJECTIVE: Vital Signs: Temperature 97.4 degrees, heart rate 70, respiratory rate 16, blood pressure 104/59, saturating 96% on tracheostomy collar. General: Patient is awake, lying in bed, in no acute distress noted. Cardiovascular: S1, S2. Regular rate and rhythm. Lungs: Bilateral breath sounds with diffuse wheezing bilaterally. Abdomen: Soft, nontender. Bowel sounds present in all 4 quadrants. Neurologic: Alert and oriented x3. No focal deficits noted. LABORATORY DATA: White cell count 3.04, hemoglobin 8.5, hematocrit 26.7, platelets are 57. Potassium 3.6, BUN 14, creatinine 0.9. ASSESSMENT AND PLAN: 1. Thrombocytopenia: Antiplatelet antibody is positive. The patient has idiopathic thrombocytopenic purpura. Plan is to start high dose steroids at this time. Continue to monitor closely. Transfuse for platelets less than 20,000 or if any signs of bleeding. 2. Anemia: Hemoglobin and hematocrit stable. Hemoglobin is 8.5, hematocrit 26.7. Continue to monitor closely and transfuse as needed. 3. Aspiration pneumonia. Continue recommendations per primary team and pulmonology. 4. Left lower extremity deep venous thrombosis. Continue Arixtra as ordered. Dictated by BOB García for Grady Travis MD Patient seen and examined. As above. Platelets are slowly trending down. It appears patient has ITP at baseline. Platelets have trended down since hospitalization. HRT antibody is negative. Antiplatelet antibody is positive. We will start him on pulse dose Decadron 40 mg daily 4 days. Gastric prophylaxis per Dr. Regan. Case discussed with Dr. Regan. Grady Travis M.D. cc: BOB García MD [facility]
[2018-03-03] MEDS: CORDARONE PO SCH (08:21)
[2018-03-03] MEDS: DIFLUCAN PO SCH (08:22)
[2018-03-03] MEDS: ALBUMIN 25% IV SCH (08:22)
[2018-03-03] MEDS: LANOXIN PO SCH (08:22)
[2018-03-03] MEDS: LACTULOSE PO SCH (08:22)
[2018-03-03] MEDS: ARIXTRA SUBQ SCH (08:46)
[2018-03-03 09:10] LABS: ALLEN TEST YES; BE 11.4 mmoll (-3.0-3.0); BLOOD TYPE ARTERIAL; HCO3-(ACT) 33.8 mmoll (20.0-26.0); METHB 1.4 % (0.0-1.5); O2HB 95.7 % (95.0-99.0); PCO2(98.6) 50 mmHg (35-45); PO2(98.6) 134 mmHg (60-100); SAMPLE BLOOD; SAO2 99.4 % (95.0-100.0); THB 8.7 g/dL (11.5-17.4); pH(98.6) 7.47 (7.35-7.45)
[2018-03-03 09:11] LABS: MODALITY COOL AEROSOL
--- NOTE | 2018-03-03 11:38 | Diag Imaging Result Doc PS360 ---
EXAM: BA SWALLOW-ESOPHAGUS HISTORY: recurrent vomiting s/p esophageal dilation/botox TECHNIQUE: Nine films submitted. Fluoroscopy time is 33 seconds. Total dose is 828 cGy square centimeter. COMPARISON: None. FINDINGS: Water-soluble contrast was swallowed without difficulty. No esophageal mass or stricture. Poor motility. Contrast emptied into the stomach, however, poor motility resulted in residual contrast remaining in the esophagus throughout the exam. No extravasation of contrast. IMPRESSION: Poor esophageal motility. Electronically signed by Ren Ortega 03/03/2018 11:36 AM
[2018-03-03] MEDS: DECADRON 40 MG in NS 50 ML IV SCH (12:05)
[2018-03-03] MEDS: LOVENOX SUBQ SCH (12:34)
[2018-03-03] MEDS: PROTONIX IV SCH ×2 (12:47→13:29)
--- NOTE | 2018-03-03 13:59 | PULMONOLOGY PROGRESS NOTE ---
DATE: 03/03/2018 SUBJECTIVE: The patient is awake and alert. He has no increased work of breathing. OBJECTIVE: Vital Signs: The patient has been afebrile for the last 24 hours. Blood pressure 107/67. Heart rate 77. Respiratory rate 17. Oxygen saturation 100% on trach collar. HEENT: Pupils are equal and reactive. Oropharynx is clear. Neck: Supple. Chest: The chest reveals occasional rhonchi bilaterally. Cardiac: S1-S2. Abdomen: Soft and without hepatosplenomegaly. Extremities: Without edema. DIAGNOSTIC DATA: Chest reveals bilateral infiltrates and effusions without change from 03/02/2018. White blood count 3.04, hemoglobin 8.5, platelet count 57,000. Arterial blood gas, pH 7.47, pCO2 of 50, pO2 of 134. Chemistry with sodium 148, potassium 3.6, chloride 105, bicarbonate 35, BUN 14, creatinine 0.9. Barium swallow reveals extremely poor motility of the esophagus, but the contrast did empty into the stomach. Contrast remained in the esophagus throughout the exam. IMPRESSION: A 72-year-old with achalasia, status post Botox with continued esophageal dysmotility, history of laryngectomy, acute on chronic hypoxemic respiratory failure, and protein calorie malnutrition. Nutrition continues to be a challenge. RECOMMENDATION: 1. Continue treatment for pneumonia. 2. Initiate steroids for ITP and thrombocytopenia. 3. Continue deep vein thrombosis. 4. Long-term decision about GI tract will need to be decided. Either the patient will continue to attempt oral intake with emesis or PEG tube will need to be planned. cc: Griffin Roland MD
--- NOTE | 2018-03-03 14:02 | PROGRESS NOTE ---
DATE: 03/03/2018 SUBJECTIVE: Patient was off the floor for a barium swallow when I made rounds. Per nurse report he has had nausea and vomiting. He has been placed NPO. Barium swallow x-ray was reviewed showing no esophageal mass or stricture, poor motility, contrast emptying into the stomach however poor motility resulted in residual contrast remaining in the esophagus throughout the exam. Patient had previous diagnosis of achalasia and an EGD with Botox was performed on 02/27. OBJECTIVE: Vital Signs: Temperature 98.3, pulse 77, respirations 17, blood pressure 107/67. Patient was down for barium swallow at the time of my rounds. LABORATORY: Hematology, WBC 3.04, hemoglobin 8.5, hematocrit 26.7, MCV 105.5. Chemistry, sodium 148, potassium 3.6, chloride 105, CO2 35, BUN 14, creatinine 0.9, glucose 85, total bilirubin 2.41, AST 23, ALT 23, alkaline phosphatase 217. ASSESSMENT AND PLAN: 1. Acute/chronic respiratory failure. Patient has been on O2 by tracheostomy collar. 2. Pneumonia on antibiotics. 3. Dysphagia with findings of achalasia and dysmotility. EGD and Botox injection was done on 02/27/2018. Patient has continued to have episodes of vomiting. He is at high risk of aspiration. 4. Pancytopenia. Patient has been seen by Hematology. Will recommend to try small amounts of full liquids. Do not overload the stomach, follow strict anti-reflux precautions. He needs to remain upright for at least 2 hours after eating or drinking. If patient continues to have vomiting and/or aspiration, possibility of J-tube placement will be considered. I have discussed this case with Dr. Del Rosario. Further plans to be made according to patient's progress. Dictated by BOB Hankins for Christopher Del Rosario MD cc: BOB Winston MD [facility]
--- NOTE | 2018-03-03 19:59 | PROGRESS NOTE ---
DATE: 03/03/2018 SUBJECTIVE: The patient was unable to tolerate his lunch yesterday and ended up vomiting everything up and was unable to eat his dinner. OBJECTIVE: Vital Signs: Temperature 98.6 degrees, blood pressure 111/75, heart rate 73, respirations 18, and O2 saturations 99% on the trach collar. Urine output 565. General: This is a chronically ill-appearing elderly male lying in bed in no acute distress. Heart: S1 and S2 normal. Lungs: Expiratory wheezes bilaterally. Abdomen: Positive bowel sounds. Soft, nontender, nondistended. Extremities: There is 1+ edema. The patient's extremities are cool to touch. Neurologic: The patient is alert and oriented x3. LABORATORY DATA: White blood cell count 3, hemoglobin 8.5, hematocrit 57, sodium 148, potassium 3.6, chloride 105, CO2 of 35, BUN 14, creatinine 0.9, glucose 85. ProBNP 5840. Barium swallow reveals poor esophageal motility. ASSESSMENT AND PLAN: 1. Acute on chronic hypoxemic respiratory failure. Continue with the current treatment regimen. 2. Aspiration pneumonia. Continue with antibiotic therapy. 3. Dysphagia with esophageal dysmotility, status post esophageal dilation with Botox injection. The patient is still retaining substances in his esophagus. Gastrointestinal is following. 4. Pancytopenia. Unchanged. The patient's hemoglobin and hematocrit did improve after receiving a blood transfusion yesterday. Hematology is following. 5. Suspected ITP. We will start the patient on pulsed dose Decadron for the next 4 days. We will monitor the patient's response to this therapy. 6. Left lower extremity deep vein thrombosis. We will start the patient on Lovenox 60 mg subcutaneous daily. 7. Atrial fibrillation. The patient is rate controlled. Continue on the current treatment regimen. 8. Gastrointestinal prophylaxis. Continue on Protonix. 9. Hypernatremia. We will start the patient on D5W. cc: Lilian Regan MD
[2018-03-03] MEDS: D5W 1,000 ML IV SCH (20:13)
[2018-03-04] MEDS: DUONEB (A & A) INH SCH ×6 (03:52→23:25)
[2018-03-04] MEDS: ROBINUL IV SCH ×3 (04:18→20:52)
[2018-03-04] MEDS: LOPRESSOR IV SCH ×4 (04:18→20:52)
[2018-03-04 05:36] LABS: ALLEN TEST YES; BE 9.8 mmoll (-3.0-3.0); BLOOD TYPE ARTERIAL; HCO3-(ACT) 32.6 mmoll (20.0-26.0); METHB 1.4 % (0.0-1.5); O2(CT) 10.6 mL/dL (15.0-23.0); O2HB 95.4 % (95.0-99.0); PCO2(98.6) 50 mmHg (35-45); PO2(98.6) 124 mmHg (60-100); SAMPLE BLOOD; SAO2 99.5 % (95.0-100.0); THB 7.7 g/dL (11.5-17.4); pH(98.6) 7.45 (7.35-7.45)
[2018-03-04 05:38] LABS: MODALITY COOL AEROSOL
[2018-03-04 05:53] LABS: HEMATOCRIT 26.1 % (42.0-52.0); HEMOGLOBIN 8.4 g/dL (14.0-18.0); LYMPH# 0.27 X1000 (1.2-3.4); LYMPH% 10.2 % (20.5-51.1); MCH 33.5 PG (27-31); MCHC 32.2 g/dL (33-37); MONO# 0.09 X1000 (0.11-0.59); MONO% 3.4 % (1.7-9.3); MPV 12.6 FL (7.4-10.4); NEUT# 2.29 X1000 (1.4-6.5); NEUT% 86.4 % (42.2-75.2); PLT 73 X1000 (130-400); RBC 2.51 XMIL (4.7-6.1); RDW 16.4 % (11.5-14.5); WBC 2.65 X1000 (4.8-10.8)
[2018-03-04] MEDS: REGLAN PO SCH ×3 (06:22→17:22)
[2018-03-04] MEDS: SODIUM CHLORIDE 0.9% INJ PRN (06:23)
[2018-03-04] MEDS: SYNTHROID IV SCH (06:23)
[2018-03-04 06:30] LABS: LYMPHS 18 % (21-51); SEGS 82 % (42-75)
[2018-03-04 06:33] LABS: AGAP 9; ALB/GLOB RATIO 2.6; ALBUMIN 3.7 g/dL (3.5-5.0); ALKALINE PHOSPHATASE 212 U/L (32-122); BUN 16 mg/dL (8-22); CALCIUM 8.5 mg/dL (8.8-10.2); CHLORIDE 103 mmol/L (98-107); COSMO 290; CREATININE 0.7 mg/dL (0.7-1.2); ESTIMATED GFR > 60; GLUCOSE 167 mg/dL (70-104); GOT 18 U/L (10-34); GPT 21 U/L (10-44); POTASSIUM 4.1 mmol/L (3.5-5.1); SODIUM 143 mmol/L (136-145); TCO2 31 mmol/L (25-35); TOTAL BILIRUBIN 2.05 mg/dL (0.20-1.00); TOTAL PROTEIN 5.1 g/dL (6.3-8.3)
--- NOTE | 2018-03-04 07:11 | Diag Imaging Result Doc PS360 ---
EXAM: CHEST-PORTABLE HISTORY: dyspnea TECHNIQUE: Chest single view COMPARISON: 03/03/2018 FINDINGS: No change in the tracheostomy tube. There are bilateral infiltrates. The heart remains enlarged. There are moderate-sized bilateral pleural effusions. Atelectasis is found in the lower lungs. IMPRESSION: No interval improvement. Findings have slightly worsened in the lower right lung. Electronically signed by Ren Ortega 03/04/2018 7:08 AM
[2018-03-04] MEDS: MERREM 500 MG in NS 50 ML IV SCH ×2 (08:35→17:20)
[2018-03-04] MEDS: DECADRON 40 MG in NS 50 ML IV SCH (08:35)
[2018-03-04] MEDS: D5W 1,000 ML IV SCH ×2 (08:35→20:52)
[2018-03-04] MEDS: DIFLUCAN PO SCH (08:36)
[2018-03-04] MEDS: CORDARONE PO SCH (08:36)
[2018-03-04] MEDS: LACTULOSE PO SCH (08:37)
[2018-03-04] MEDS: LANOXIN PO SCH (08:37)
[2018-03-04] MEDS: LOVENOX SUBQ SCH (11:20)
--- NOTE | 2018-03-04 12:12 | HEMO/ONC PROGRESS NOTE ---
DATE: 03/04/2018 SUBJECTIVE: Patient has had some increasing nausea, vomiting, but he says there has been no other complaints at this time. OBJECTIVE: Vital Signs: Temperature 97.0, heart rate 71, respiratory rate 16, blood pressure 170/71, saturating 98% on trach collar. General: Patient is awake, lying in bed, in no acute distress noted. HEENT: Anicteric. Pupils PERRLA. Mucous membranes dry. Cardiovascular: S1, S2. Regular rate and rhythm. Chest: Bilateral breath sounds with rhonchi bilaterally. Abdomen: Soft, nontender. Bowel sounds noted in all 4 quadrants. Neurologic: Alert and oriented x3. No focal deficits noted. LABORATORY DATA: White blood cell count is 2.65, hemoglobin 8.4, hematocrit 26.1, platelets are 73,000. Potassium 4.1, BUN 16, creatinine 0.7. ASSESSMENT AND PLAN: 1. Thrombocytopenia: Patient received his first round of high-dose steroids yesterday. Continue for the next 3 days. Platelet counts have improved at 73,000. Continue to monitor and transfuse for platelets less than 20,000 or for any signs of bleeding. 2. Anemia. Hemoglobin and hematocrit very stable. Continue to monitor. Transfuse as needed. 3. Aspiration pneumonia. Continue recommendations per primary medical team and pulmonology. 4. Left lower extremity deep vein thrombosis. Continue with Lovenox as ordered. Dictated by BOB García for Grady Travis MD cc: BOB García MD
[2018-03-04] MEDS: PROTONIX IV SCH (14:42)
[2018-03-04] MEDS: VANCOMYCIN 1 GM/NS 1 GM/250 ML IVPB IV SCH (14:43)
[2018-03-04] MEDS: ZOFRAN IV PRN (14:43)
--- NOTE | 2018-03-04 14:50 | PULMONOLOGY PROGRESS NOTE ---
DATE: 03/04/2018 SUBJECTIVE: The patient is awake, alert, and conversant. He ate breakfast, by nursing report, without difficulty. He has no increased work of breathing. OBJECTIVE: The patient has been afebrile for the last 24 hours. Blood pressure 135/89, heart rate 82, respiratory rate 21, oxygen saturation 100% on trach collar. HEENT: Pupils are equal and reactive. Oropharynx is clear. Neck is supple. Chest reveals occasional rhonchi bilaterally. Cardiac: S1-S2. Abdomen is soft with positive bowel sounds. Extremities reveal chronic vascular disease without acute changes. LABORATORIES: Chest x-ray reveals bilateral infiltrates with persistent volume loss in the left lung with, perhaps, slight worsening of infiltrates in the right lung base. White blood count 2.65, hemoglobin 8.4, platelet count 73,000. Sodium 143, potassium 4.1, chloride 103, bicarbonate 31. BUN 16, creatinine 0.7. Bilirubin 2.05. Arterial blood gas: pH 7.45, pCO2 of 50, PO2 of 124. IMPRESSION: A 72 year old with 1. Achalasia, status post Botox. 2. Esophageal dysfunction with aspiration. 3. History of laryngectomy. 4. [id number] hypoxemic respiratory failure. 5. Idiopathic thrombocytopenic purpura and has been initiated on steroids. 6. Severe protein calorie malnutrition. Patient received steroids and his platelet count has improved. He did tolerate p.o. intake this morning. RECOMMENDATIONS: 1. Continue treatment for pneumonia. 2. Continue steroids for ITP and thrombocytopenia. 3. Continue bronchial hygiene. 4. Continue deep vein thrombosis prophylaxis. 5. Continue daily attempts at p.o. intake. If this fails, then the patient will have to decide if he would like to pursue a PEG tube for nutrition. cc: Griffin Roland MD
--- NOTE | 2018-03-04 19:18 | PROGRESS NOTE ---
DATE: 03/04/2018 SUBJECTIVE: The patient is resting comfortably in bed. No acute events noted overnight. OBJECTIVE: Vital Signs: Temperature 98.6 degrees, blood pressure 122/73, heart rate 69, respirations 19, O2 saturations 100% on tracheostomy collar. General: This is a chronically ill- appearing elderly male lying in bed in no acute distress. Heart: S1, S2. Normal. Lungs: Mild expiratory wheezes. No crackles, no rales. Abdomen: Positive bowel sounds. Soft, nontender, nondistended. Extremities: No edema, no cyanosis. Neuro: The patient is alert and oriented. LABS: Hemoglobin 8.4, hematocrit 26, platelets 73,000, white blood cell count 2.6. Sodium 143, potassium 4.1, chloride 103, CO2 31, BUN 16, creatinine 0.7, glucose 167, calcium 8.5. Chest x-ray shows bilateral infiltrates. ASSESSMENT AND PLAN: 1. Acute on chronic hypoxemic respiratory failure. Multifactorial. Continue to treat the underlying issues. 2. Aspiration pneumonia. Continue with antibiotic therapy. 3. Bilateral moderate-sized pleural effusions. Will monitor this closely. 4. Idiopathic thrombocytopenia. Today is day 2 of steroid therapy. Hematology is following. 5. Anemia. Stable. 6. Left lower extremity deep vein thrombosis. Continue on Lovenox. 7. Atrial fibrillation. The patient is rate controlled. 8. Gastrointestinal prophylaxis. Continue on Protonix. cc: Lilian Regan MD
[2018-03-05] MEDS: MERREM 500 MG in NS 50 ML IV SCH (01:00)
[2018-03-05] MEDS: DUONEB (A & A) INH SCH ×6 (03:43→22:54)
[2018-03-05] MEDS: LOPRESSOR IV SCH ×4 (04:06→22:13)
[2018-03-05] MEDS: ROBINUL IV SCH ×3 (04:06→20:06)
[2018-03-05] MEDS: REGLAN PO SCH ×3 (06:19→16:03)
[2018-03-05] MEDS: SYNTHROID IV SCH (06:20)
[2018-03-05] MEDS: DILAUDID IV PRN ×2 (08:37→12:35)
[2018-03-05] MEDS: ALBUMIN 25% IV SCH (08:37)
[2018-03-05] MEDS: LASIX IV SCH ×2 (08:37→20:06)
[2018-03-05] MEDS: LANOXIN PO SCH (08:38)
[2018-03-05] MEDS: DECADRON 40 MG in NS 50 ML IV SCH (08:38)
[2018-03-05] MEDS: CORDARONE PO SCH (08:38)
[2018-03-05] MEDS: DIFLUCAN PO SCH (08:38)
[2018-03-05 09:07] LABS: HEMATOCRIT 27.8 % (42.0-52.0); HEMOGLOBIN 8.9 g/dL (14.0-18.0); LYMPH# 0.38 X1000 (1.2-3.4); LYMPH% 4.4 % (20.5-51.1); MCH 32.7 PG (27-31); MCV 102.2 FL (81-99); MONO# 0.32 X1000 (0.11-0.59); MONO% 3.7 % (1.7-9.3); MPV 12.4 FL (7.4-10.4); NEUT# 7.97 X1000 (1.4-6.5); NEUT% 91.9 % (42.2-75.2); PLT 102 X1000 (130-400); RBC 2.72 XMIL (4.7-6.1); RDW 16.1 % (11.5-14.5); WBC 8.67 X1000 (4.8-10.8)
[2018-03-05 09:15] LABS: AGAP 10; ALB/GLOB RATIO 2.8; ALBUMIN 3.6 g/dL (3.5-5.0); ALKALINE PHOSPHATASE 192 U/L (32-122); BUN 19 mg/dL (8-22); CALCIUM 8.2 mg/dL (8.8-10.2); CHLORIDE 97 mmol/L (98-107); COSMO 276; CREATININE 0.8 mg/dL (0.7-1.2); DIGOXIN 0.9 ng/mL (0.9-2.0); ESTIMATED GFR > 60; GLUCOSE 134 mg/dL (70-104); GOT 16 U/L (10-34); GPT 25 U/L (10-44); POTASSIUM 4.6 mmol/L (3.5-5.1); SODIUM 136 mmol/L (136-145); TCO2 29 mmol/L (25-35); TOTAL BILIRUBIN 1.97 mg/dL (0.20-1.00); TOTAL PROTEIN 4.9 g/dL (6.3-8.3)
[2018-03-05 09:23] LABS: BANDS 6 % (0-1); LYMPHS 6 % (21-51); MONO 2 % (1-9); SEGS 86 % (42-75)
[2018-03-05 09:24] LABS: ANISOCYTOSIS 1+
[2018-03-05 10:19] LABS: PHOSPHORUS 2.9 mg/dL (2.7-4.5)
[2018-03-05] MEDS: HALDOL IM PRN ×2 (10:26→20:11)
[2018-03-05] MEDS: LOVENOX SUBQ SCH ×2 (10:26→22:13)
[2018-03-05] MEDS: ZOFRAN IV PRN (12:35)
[2018-03-05] MEDS: SODIUM CHLORIDE 0.9% INJ SCH (14:04)
[2018-03-05] MEDS: PROTONIX IV SCH (14:04)
--- NOTE | 2018-03-05 15:04 | PROGRESS NOTE ---
DATE: 03/05/2018 SUBJECTIVE: The patient is resting comfortably in bed. No acute events noted overnight. OBJECTIVE: Vital Signs: Temperature 98.5, blood pressure 125/100, heart rate 69, respirations 15, O2 sats 91% on the trach collar. General: This is a chronically ill-appearing elderly male lying in bed in no acute distress. Heart: S1, S2 normal. Lungs: Equal air entry bilaterally. Mild expiratory wheezes. Abdomen: Positive bowel sounds. Soft, nontender, nondistended. Extremities: 2 to 3+ edema. Neurologic: The patient is alert and oriented x 3. LABS: White blood cell count 8.6, hemoglobin 8.9, hematocrit 27, platelets 102,000. Sodium 136, potassium 4.6, chloride 97, CO2 29, BUN 19, creatinine 0.8, glucose 134, total bilirubin 1.9, AST 16, ALT 25, alkaline phosphatase 192. ASSESSMENT AND PLAN: 1. Acute on chronic hypoxemic respiratory failure. Multifactorial. 2. Volume overload. We will start the patient on Lasix with some albumin. 3. Aspiration pneumonia. We will discontinue the patient's antibiotics and monitor closely. We will check a procalcitonin level. 4. Bilateral moderate-sized pleural effusions. Diuretic therapy will be started today. 5. ITP. Today's day #3 of steroid therapy. Hematology is following. 6. Severe protein calorie malnutrition. Continue on the current diet. 7. Left lower extremity DVT. Continue on full-dose Lovenox. 8. Atrial fibrillation. The patient is rate controlled. 9. Anemia. Stable. 10. GI prophylaxis. Continue on Protonix. cc: Lilian Regan MD
--- NOTE | 2018-03-05 18:39 | PULMONOLOGY PROGRESS NOTE ---
DATE: 03/05/2018 INTERIM HISTORY: Patient has had additional difficulty with nausea and vomiting per nursing report. He currently has no increased work of breathing. OBJECTIVE: Vital Signs: BP 120/80, heart rate 79, respiratory rate 14, oxygen saturation 94% on 40% tracheostomy collar. He has been afebrile over the last 24 hours. HEENT: Pupils are equal and reactive. Oropharynx is clear. Neck: Has evidence of prior laryngectomy. Chest: Reveals occasional rhonchi bilaterally. Cardiac: S1-S2. Abdomen: Soft and without hepatosplenomegaly. Extremities: Reveal chronic vascular disease. LABORATORIES: White blood count 8.67, hemoglobin 8.9, platelet count increasing at 102,000. Sodium 136, potassium 4.6, chloride 97, bicarbonate 29, BUN 19, creatinine 0.8. No new microbiology or chest x-rays today. 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 RECOMMENDATIONS: 1. Cautious p.o. intake. 2. Continue steroids for ITP. 3. Continue bronchial hygiene. 4. Continue deep vein thrombosis prophylaxis. 5. Followup chest x-ray tomorrow. cc: Griffin Roland MD
[2018-03-05] MEDS ORDERED: D50W SYRINGE IV ONE (22:03)
[2018-03-06] MEDS: DUONEB (A & A) INH SCH ×6 (03:26→22:54)
[2018-03-06] MEDS: LOPRESSOR IV SCH ×4 (04:28→21:49)
[2018-03-06] MEDS: ROBINUL IV SCH ×3 (04:34→22:28)
[2018-03-06 05:03] LABS: BE 6.8 mmoll (-3.0-3.0); BLOOD TYPE ARTERIAL; HCO3-(ACT) 30.2 mmoll (20.0-26.0); METHB 1.3 % (0.0-1.5); O2HB 96.4 % (95.0-99.0); PCO2(98.6) 44 mmHg (35-45); PO2(98.6) 148 mmHg (60-100); SAMPLE BLOOD; SAO2 99.4 % (95.0-100.0); THB 8.6 g/dL (11.5-17.4); pH(98.6) 7.46 (7.35-7.45)
[2018-03-06 05:04] LABS: MODALITY COOL AEROSOL
[2018-03-06 05:12] LABS: HEMATOCRIT 25.1 % (42.0-52.0); LYMPH% 7.2 % (20.5-51.1); MCH 33.3 PG (27-31); MCHC 31.9 g/dL (33-37); MCV 104.6 FL (81-99); MONO% 5.4 % (1.7-9.3); MPV 12.4 FL (7.4-10.4); NEUT# 4.83 X1000 (1.4-6.5); NEUT% 87.4 % (42.2-75.2); PLT 81 X1000 (130-400); RDW 16.4 % (11.5-14.5); WBC 5.53 X1000 (4.8-10.8)
[2018-03-06 05:33] LABS: AGAP 13; ALB/GLOB RATIO 2.7; ALKALINE PHOSPHATASE 171 U/L (32-122); BUN 28 mg/dL (8-22); CALCIUM 9.3 mg/dL (8.8-10.2); CHLORIDE 97 mmol/L (98-107); COSMO 282; CREATININE 1.1 mg/dL (0.7-1.2); ESTIMATED GFR > 60; GLUCOSE 81 mg/dL (70-104); GOT 16 U/L (10-34); GPT 21 U/L (10-44); POTASSIUM 4.7 mmol/L (3.5-5.1); SODIUM 139 mmol/L (136-145); TCO2 29 mmol/L (25-35); TOTAL BILIRUBIN 1.98 mg/dL (0.20-1.00); TOTAL PROTEIN 5.5 g/dL (6.3-8.3)
[2018-03-06] MEDS: SYNTHROID IV SCH (06:26)
[2018-03-06] MEDS: SODIUM CHLORIDE 0.9% INJ PRN (06:26)
[2018-03-06] MEDS: REGLAN PO SCH ×2 (06:29→10:23)
--- NOTE | 2018-03-06 06:42 | Diag Imaging Result Doc PS360 ---
EXAM: CHEST-PORTABLE HISTORY: dyspnea TECHNIQUE: Portable chest single view COMPARISON: 03/04/2018 FINDINGS: There is a tracheostomy tube in good position. Dense bilateral infiltrates are present. There are also small pleural effusions. The heart is mildly enlarged. IMPRESSION: Slight interval improvement. Electronically signed by Ren Ortega 03/06/2018 6:39 AM
[2018-03-06 07:39] LABS: ANISOCYTOSIS 1+; HYPOCHROM 1+; LYMPHS 10 % (21-51); MONO 4 % (1-9); SEGS 86 % (42-75)
[2018-03-06 07:40] LABS: LARGE PLATELETS 1+
[2018-03-06] MEDS: CORDARONE PO SCH (09:12)
[2018-03-06] MEDS: LASIX IV SCH (09:12)
[2018-03-06] MEDS: DECADRON 40 MG in NS 50 ML IV SCH (09:13)
[2018-03-06] MEDS: DIFLUCAN PO SCH (09:13)
[2018-03-06] MEDS: LANOXIN PO SCH (09:13)
[2018-03-06] MEDS: LOVENOX SUBQ SCH ×2 (09:35→21:49)
[2018-03-06] MEDS: ALBUMIN 25% IV SCH (10:14)
--- NOTE | 2018-03-06 13:45 | PROGRESS NOTE ---
DATE: 03/06/2018 SUBJECTIVE: The patient is resting comfortably in bed. He is a little bit agitated this morning. No acute events noted overnight. OBJECTIVE: Vital Signs: Temperature 98.6 degrees, blood pressure 116/66, heart rate 78, respirations 15, and O2 saturation 100% on the trach collar. Urine output 705. General: This is a chronically ill-appearing elderly male lying in bed in no acute distress. Heart: S1, S2 normal. Regular rate and rhythm. Lungs: Equal air entry bilaterally. No wheezing. No rales. Abdomen: Positive bowel sounds. Soft, nontender, and nondistended. Extremities: 2+ edema bilaterally in the lower extremities. Neurologic: The patient is alert and oriented x3. LABORATORY: White blood cell count 5.5, hemoglobin 8, hematocrit 25, and platelets 81,000. Sodium 139, potassium 4.7, chloride 97, CO2 29, BUN 28, creatinine 1.1, and glucose 81. AST 16, ALT 21, alkaline phosphatase 171, and albumin 4. Chest x-ray shows bilateral infiltrates. ASSESSMENT AND PLAN: 1. Acute on chronic hypoxemic respiratory failure. Multifactorial. 2. Volume overload. Improved. 3. Aspiration pneumonia. The patient has completed the antibiotic course of therapy. We will monitor the patient closely. 4. Bilateral pleural effusions. Continue to monitor for improvement. The patient is on diuretic therapy. 5. ITP. Today is day #4 in the final day of steroid therapy. Hematology is following. 6. Left lower extremity deep vein thrombosis. Continue on full-dose Lovenox. 7. Severe protein calorie malnutrition. Continue with the current diet. 8. Atrial fibrillation. The patient is rate controlled. 9. Anemia. The patient's hemoglobin and hematocrit is a little lower today. We will continue to monitor closely and transfuse p.r.n. cc: Lilian Regan MD
--- NOTE | 2018-03-06 14:44 | PROGRESS NOTE ---
DATE: 03/06/2018 SUBJECTIVE: The patient was resting, but he did arouse. His power of securities attorney and her were at the bedside. In speaking with the nurse, he has not had any vomiting so far today. He usually has episodes of vomiting when he has been laid flat. He has tolerated his diet so far today. During exam, the patient was noted to have some tremors. He is in bilateral wrist restraints. The patient was started on Reglan for possible gastroparesis. On speaking with the power of securities attorney, she did mention that the patient had been given Reglan when he was in the hospital in the past and he did have some tremors and did not tolerate the medication. OBJECTIVE: Vital Signs: Temperature 99.4 degrees, pulse 79, respirations 15, blood pressure 116/66. General: The patient is no acute distress. He is in bilateral wrist restraints. I did notice some shaking or tremors on evaluation. LABORATORY DATA: Hematology: WBC 5.53, hemoglobin 8.0, hematocrit 25.1, MCV 104.6, platelets 81,000. Chemistry: Sodium 139, potassium 4.7, chloride 97, CO2 29, BUN 28, creatinine 1.1, glucose 81. ASSESSMENT: 1. Acute/chronic respiratory failure. The patient has O2 by trach collar. 2. Pneumonia. 3. Pleural effusions. 4. Protein-calorie malnutrition. The patient is tolerating a full liquid diet, but still having episodes of vomiting. 5. Achalasia with recent EGD and Botox injection on 02/27/2018. PLAN: Continue strict anti-reflux precautions, keeping head of the bed elevated when eating and at least 2 hours after eating. Limit lying flat. Due to possible tremors, we will stop his Reglan. Continue PPI. Further plans to be made according to his progress. If the patient continues to have nausea and vomiting, he may require a PEJ tube. I have discussed this case with Dr. Del Rosario. Again, further plans will be made according to patient's progress. Dictated by BOB Hankins for Christopher Del Rosario MD cc: BOB Winston MD [facility]
[2018-03-06] MEDS: PROTONIX IV SCH (14:58)
[2018-03-06] MEDS: BENADRYL IV PRN (14:58)
[2018-03-06] MEDS: HALDOL IM PRN (21:51)
[2018-03-07] MEDS: BENADRYL IV PRN (00:15)
[2018-03-07] MEDS: DUONEB (A & A) INH SCH ×6 (03:44→23:15)
[2018-03-07 04:57] LABS: ALLEN TEST YES; BE 5.5 mmoll (-3.0-3.0); BLOOD TYPE ARTERIAL; HCO3-(ACT) 29.2 mmoll (20.0-26.0); METHB 0.7 % (0.0-1.5); O2(CT) 11.8 mL/dL (15.0-23.0); O2HB 94.5 % (95.0-99.0); PCO2(98.6) 46 mmHg (35-45); PO2(98.6) 74 mmHg (60-100); SAMPLE BLOOD; THB 8.8 g/dL (11.5-17.4); pH(98.6) 7.43 (7.35-7.45)
[2018-03-07] MEDS: LOPRESSOR IV SCH ×4 (04:57→22:28)
[2018-03-07] MEDS: ROBINUL IV SCH ×3 (04:57→22:28)
[2018-03-07 04:58] LABS: MODALITY COOL AEROSOL
[2018-03-07 05:11] LABS: ALLEN TEST YES
[2018-03-07] MEDS: HALDOL IM PRN ×3 (05:28→22:29)
[2018-03-07 06:36] LABS: ALB/GLOB RATIO 3.3; ALBUMIN 4.3 g/dL (3.5-5.0); CREATININE 1.3 mg/dL (0.7-1.2); MAGNESIUM 2.1 mg/dL (1.5-2.7); PHOSPHORUS 3.9 mg/dL (2.7-4.5); POTASSIUM 4.5 mmol/L (3.5-5.1); TOTAL BILIRUBIN 2.64 mg/dL (0.20-1.00); TOTAL PROTEIN 5.6 g/dL (6.3-8.3)
[2018-03-07 06:37] LABS: HEMATOCRIT 26.3 % (42.0-52.0); HEMOGLOBIN 8.6 g/dL (14.0-18.0); LYMPH# 0.24 X1000 (1.2-3.4); LYMPH% 4.9 % (20.5-51.1); MCH 33.5 PG (27-31); MCHC 32.7 g/dL (33-37); MCV 102.3 FL (81-99); MONO# 0.21 X1000 (0.11-0.59); MONO% 4.3 % (1.7-9.3); MPV 12.7 FL (7.4-10.4); NEUT# 4.47 X1000 (1.4-6.5); NEUT% 90.8 % (42.2-75.2); PLT 86 X1000 (130-400); RBC 2.57 XMIL (4.7-6.1); RDW 16.8 % (11.5-14.5); WBC 4.92 X1000 (4.8-10.8)
[2018-03-07] MEDS: SYNTHROID IV SCH (06:42)
[2018-03-07] MEDS: SODIUM CHLORIDE 0.9% INJ PRN (06:43)
--- NOTE | 2018-03-07 07:33 | Diag Imaging Result Doc PS360 ---
CHEST-PORTABLE - 03/07/2018 INDICATION: dyspnea COMPARISON: 03/06/2018 FINDINGS: Stable tracheostomy tube. Stable extensive infiltrate throughout the left lung. Stable bilateral pleural effusions. Stable cardiomegaly. IMPRESSION: No change from prior. Electronically signed by Justin Trujillo 03/07/2018 7:30 AM
--- NOTE | 2018-03-07 08:33 | HEMO/ONC PROGRESS NOTE ---
DATE: 03/07/2018 SUBJECTIVE: The patient is resting comfortably in bed. No complaints at this time. OBJECTIVE: Vital Signs: Temperature 97.2, heart rate 94, respiratory rate 24, blood pressure 102/68. Sat 100% on trach collar. General: The patient is awake, lying in bed. No acute distress noted. HEENT: Anicteric. Pupils OK. Mucous membranes dry. Cardiovascular: S1, S2. Regular rate and rhythm. Lungs: Bilateral breath sounds bilaterally. Abdomen soft, nontender. Bowel sounds present in all 4 quadrants. Neurologic: Alert and oriented x3. No focal deficits noted. LABORATORY DATA: White blood cell count 4.92, hemoglobin 8.6, hematocrit 26.3, platelets are 86. Potassium 4.5. BUN 37, creatinine 1.3. ASSESSMENT AND PLAN: 1. Thrombocytopenia: Platelets continue to be stable at 86,000. Continue to monitor closely. Patient is status post IV steroids. If platelets drop consider IVIG next. Continue to transfuse as needed for platelets less than 20,000 for any signs of bleeding. 2. Pknhd-dk-wdawdke hypoxic respiratory failure. Continue recommendations per Primary Medical Team and Pulmonology. 3. Aspiration pneumonia: Continue recommendations by Primary Medical Team and Pulmonology. 4. Anemia: Hemoglobin and hematocrit continue to be stable; today, hemoglobin was 8.6 and hematocrit 26.3. Continue to monitor closely. Continue to transfuse as needed. 5. Left lower extremity deep venous thrombosis. Continue Lovenox as ordered. Dictated by BOB García for Grady Travis MD Patient seen and examined. Patients platelet counts partially responded to pulse dose steroids. Now they have trended down a little. For now continue to monitor. Plan for IVIG if they worsen. Continue Lovenox at current dose. Monitor for bleeding. Grady Travis M.D. cc: BOB García MD [facility]
[2018-03-07] MEDS: ALBUMIN 25% IV SCH (08:50)
[2018-03-07] MEDS: LANOXIN PO SCH (08:50)
[2018-03-07] MEDS: DIFLUCAN PO SCH (08:51)
[2018-03-07] MEDS: CORDARONE PO SCH (08:51)
[2018-03-07] MEDS: LOVENOX SUBQ SCH ×2 (10:51→22:29)
[2018-03-07] MEDS: SODIUM CHLORIDE 0.9% INJ SCH (13:23)
[2018-03-07] MEDS: PROTONIX IV SCH (13:23)
[2018-03-07] MEDS: DILAUDID IV PRN (14:48)
--- NOTE | 2018-03-07 16:06 | PROGRESS NOTE ---
DATE: 03/07/2018 SUBJECTIVE: The patient is resting in bed. He looks confused. OBJECTIVE: Vital signs: Temperature 98.8 degrees, pulse 78, respiratory rate 16, blood pressure 113/67, oxygen saturation is 99%. HEENT: He is atraumatic, normocephalic. He does have a trach in place. Cardiovascular system: S1, S2. Respiratory system: Has rhonchi in the lung noel. Abdomen: Soft and nontender. No masses felt. Extremities: Has 1+ edema in the lower extremities. Central nervous system: The patient is confused. LABORATORY DATA: WBCs 4.82, hematocrit is 29.3, with a platelet count of 6,000. ABG 7.43/46/74/97%. Sodium is 140, potassium 4.5, chloride 97, bicarb 27, BUN is 37, creatinine 1.3. X-ray of the chest shows stable extensive infiltrate throughout the left lung with stable bilateral pleural effusions and also stable cardiomegaly. ASSESSMENT AND PLAN: 1. Acute on chronic respiratory failure. The patient is being ventilated via trach. Pulmonary team following. 2. Probable aspiration pneumonia. The patient's antibiotics have been discontinued at this time. 3. Bilateral moderate sized pleural effusions. Pulmonary on board. Maintain patient on diuretics. 4. Idiopathic thrombocytopenic purpura. Continue patient on steroids. 5. Left lower extremity deep vein thrombosis. Continue Lovenox. 6. Atrial fibrillation. Heart rate is controlled. 7. Anemia. Follow up on hemoglobin, hematocrit. Transfuse PRBCs if needed. 8. Gastrointestinal prophylaxis. PPI. 9. Deep vein thrombosis prophylaxis. Lovenox. cc: Bill Joy MD
[2018-03-08] MEDS: DUONEB (A & A) INH SCH ×6 (03:12→23:15)
[2018-03-08] MEDS: LOPRESSOR IV SCH ×5 (04:27→20:48)
[2018-03-08] MEDS: ROBINUL IV SCH ×3 (04:27→20:12)
[2018-03-08] MEDS: SODIUM CHLORIDE 0.9% INJ PRN (06:06)
[2018-03-08] MEDS: SYNTHROID IV SCH (06:07)
--- NOTE | 2018-03-08 08:14 | HEMO/ONC PROGRESS NOTE ---
DATE: 03/08/2018 SUBJECTIVE: The patient continues to rest comfortably. The patient has no new complaints at this time. OBJECTIVE: Vital Signs: Temperature 97.2 degrees, heart rate 79, respiratory rate 26, blood pressure 118/61, satting 98% on a trach culture. HEENT: Anicteric. Pupils noted to be dry. Cardiovascular: S1, S2. Regular rhythm. Chest: Bilateral breath sounds diminished bilaterally. Abdomen: Soft, nontender. Bowel sounds present all 4 quadrants. Neurologic: Alert and oriented x2. No focal deficits noted. LABORATORY DATA: WBC 4.86, Hgb 8.1, Hct 25.1, Plt 74. ASSESSMENT/PLAN: 1. Thrombocytopenia: Continue to monitor the patient closely. Patient responded to Pulse dose steroids. Platelets trending downward, today 74,000. If platelets drop, consider IVIG if they worsen. Continue to transfuse as needed for platelets of 20,000 or for any signs of bleeding. 2. Acute on chronic hypoxic respiratory failure: Continue recommendations per medical team and pulmonology. 3. Anemia: Hemoglobin and hematocrit continue to be stable. Continue to monitor closely. Transfuse as needed. 4. Left lower extremity deep vein thrombosis: Continue Lovenox as ordered. Continue to monitor closely for any signs of bleeding. Dictated by BOB García for Grady Travis MD cc: BOB García MD [facility]
[2018-03-08 08:19] LABS: HEMATOCRIT 25.1 % (42.0-52.0); HEMOGLOBIN 8.1 g/dL (14.0-18.0); LYMPH# 0.27 X1000 (1.2-3.4); LYMPH% 5.6 % (20.5-51.1); MCH 33.3 PG (27-31); MCHC 32.3 g/dL (33-37); MCV 103.3 FL (81-99); MONO# 0.18 X1000 (0.11-0.59); MONO% 3.7 % (1.7-9.3); MPV 12.2 FL (7.4-10.4); NEUT# 4.41 X1000 (1.4-6.5); NEUT% 90.7 % (42.2-75.2); PLT 74 X1000 (130-400); RBC 2.43 XMIL (4.7-6.1); RDW 17.1 % (11.5-14.5); WBC 4.86 X1000 (4.8-10.8)
[2018-03-08 08:29] LABS: CALCIUM 9.3 mg/dL (8.8-10.2); CREATININE 1.3 mg/dL (0.7-1.2); POTASSIUM 3.8 mmol/L (3.5-5.1)
--- NOTE | 2018-03-08 09:23 | Diag Imaging Result Doc PS360 ---
EXAM: CHEST-PORTABLE 03/08/2018 HISTORY: Possible aspiration TECHNIQUE: AP upright at 0846 COMMENT: There is a tracheostomy tube. There are ill-defined opacities throughout both lungs. The inspiration is much less optimal than on the previous examination of 03/07/2018. There is less pleural fluid on the right than on 03/06/2018. IMPRESSION: Pulmonary edema plus minus pneumonia with right pleural effusion. Electronically signed by Tomi Jiang 03/08/2018 9:20 AM
[2018-03-08] MEDS: CORDARONE PO SCH (09:29)
[2018-03-08] MEDS: DIFLUCAN PO SCH (09:29)
[2018-03-08] MEDS: LANOXIN PO SCH (09:30)
[2018-03-08] MEDS: LOVENOX SUBQ SCH (09:33)
[2018-03-08 09:44] LABS: LYMPHS 10 % (21-51); MONO 2 % (1-9); NRBC 1 % (0-0); SEGS 86 % (42-75)
[2018-03-08 09:45] LABS: ANISOCYTOSIS 1+; HYPOCHROM 1+; POIKILOCYTOSIS 1+
[2018-03-08] MEDS: PROTONIX IV SCH (13:56)
[2018-03-08] MEDS: SODIUM CHLORIDE 0.9% INJ SCH (13:57)
[2018-03-08] MEDS: LASIX PO SCH (15:27)
--- NOTE | 2018-03-08 15:33 | PROGRESS NOTE ---
DATE: 03/08/2018 SUBJECTIVE: Patient resting comfortably. His sensorium is much better today. OBJECTIVE: Vital signs are as follows: Temperature is 99.6, pulse is 80, respiratory rate 18, blood pressure 143/70, oxygen saturation is 100%. HEENT: Atraumatic, normocephalic. Does have a trach in place. Cardiovascular System: S1, S2. Respiratory System: Has rhonchi noted in both lung noel. Abdomen: Soft, nontender. No masses felt. Extremities: No evidence of edema. Central Nervous System: The patient is awake and seems much clearer today. LABORATORY DATA: WBC 4.86. Hematocrit is 25.1 with a platelet count of 74,000. Sodium is 143, potassium 3.8, chloride 99, bicarb 29. BUN is 37, creatinine 1.3. X-ray chest shows pulmonary edema plus no pneumonia with right pleural effusion. ASSESSMENT AND PLAN: 1. Mpgsx-pk-owwhpqv respiratory failure. The patient does have a trach in place. Today's chest x-ray shows pulmonary edema plus/minus pneumonia with right pleural effusion. The patient is currently off antibiotics but we will maintain patient on diuretics. The patient will be followed up by the Pulmonary Team. 2. Moderate size pleural effusions. Continue diuretics. Pulmonary Team on board. 3. Idiopathic thrombocytopenic purpura. Continue steroids. 4. Left lower extremity deep venous thrombosis. Continue Lovenox. 5. Atrial fibrillation. Heart rate is controlled. 6. Anemia. Follow up on hemoglobin and hematocrit. Transfuse PRBCs as needed. 7. Nutrition; PEG planned. 8. Gastrointestinal prophylaxis; proton pump inhibitor. 9. Deep venous thrombosis prophylaxis; the patient is on Lovenox. cc: Bill Joy MD
--- NOTE | 2018-03-08 16:27 | PROGRESS NOTE ---
DATE: 03/08/2018 SUBJECTIVE: Patient arouses easily but is not as alert today during my evaluation as he was yesterday. Per nurse report, he has had refluxing of fluid. They have placed him n.p.o. Chest x-ray showed pulmonary edema with pneumonia and right pleural effusion. OBJECTIVE: Vital Signs: Temperature 99.6, pulse 61, respirations 15, blood pressure 122/71. General: The patient arouses easily, in no acute distress. LABORATORY: Hematology: WBC 4.86, hemoglobin 8.1, hematocrit 25.1, MCV 103.3, platelets 74. Chemistry: Sodium 143, potassium 3.8, chloride 99, CO2 29, BUN 37, creatinine 1.3, glucose 74. ASSESSMENT AND PLAN: 1. Acute/chronic respiratory failure. Patient has O2 by trache collar. 2. Pneumonia. 3. Pleural effusions. 4. Protein-calorie malnutrition. The patient had an EGD and Botox injection on 02/27/2018, but patient continues to have episodes of vomiting and refluxing. Due to his continued problems and high risk of aspiration, would recommend EGD with percutaneous endoscopic jejunostomy tube placement. The plan will be to proceed with that procedure tomorrow. I have called and spoken with Jacqueline Warren, the [employer], and she agrees to the procedure and has given verbal consent. Further plans will be made as needed. I have discussed this case with Dr. Del Rosario. Dictated by BOB Hankins for Christopher Del Rosario MD cc: BOB Winston MD
[2018-03-09] MEDS: LOPRESSOR IV SCH ×5 (03:11→21:08)
[2018-03-09] MEDS: DUONEB (A & A) INH SCH ×6 (03:33→23:53)
[2018-03-09 05:31] LABS: HEMATOCRIT 25.3 % (42.0-52.0); HEMOGLOBIN 8.2 g/dL (14.0-18.0); LYMPH# 0.25 X1000 (1.2-3.4); LYMPH% 6.2 % (20.5-51.1); MCH 33.7 PG (27-31); MCHC 32.4 g/dL (33-37); MCV 104.1 FL (81-99); MONO% 2.5 % (1.7-9.3); MPV 12.5 FL (7.4-10.4); NEUT% 91.3 % (42.2-75.2); PLT 72 X1000 (130-400); RBC 2.43 XMIL (4.7-6.1); RDW 16.8 % (11.5-14.5); WBC 4.05 X1000 (4.8-10.8)
[2018-03-09] MEDS: ROBINUL IV SCH ×3 (05:33→21:08)
[2018-03-09 05:59] LABS: AGAP 11; ALB/GLOB RATIO 3.4; ALBUMIN 3.7 g/dL (3.5-5.0); ALKALINE PHOSPHATASE 156 U/L (32-122); BUN 33 mg/dL (8-22); CALCIUM 8.4 mg/dL (8.8-10.2); CHLORIDE 102 mmol/L (98-107); COSMO 296; CREATININE 1.1 mg/dL (0.7-1.2); ESTIMATED GFR > 60; GLUCOSE 59 mg/dL (70-104); GOT 16 U/L (10-34); GPT 18 U/L (10-44); POTASSIUM 3.3 mmol/L (3.5-5.1); SODIUM 146 mmol/L (136-145); TCO2 33 mmol/L (25-35); TOTAL BILIRUBIN 2.21 mg/dL (0.20-1.00); TOTAL PROTEIN 4.8 g/dL (6.3-8.3)
[2018-03-09] MEDS: SYNTHROID IV SCH (06:28)
[2018-03-09] MEDS: SODIUM CHLORIDE 0.9% INJ PRN (06:28)
--- NOTE | 2018-03-09 08:00 | Diag Imaging Result Doc PS360 ---
CHEST-1 VIEW - 03/09/2018 INDICATION: pneumonia COMPARISON: 03/08/2018 FINDINGS: Stable tracheostomy tube. Stable cardiomegaly. Stable bilateral infiltrates and pleural effusions. IMPRESSION: No change from prior. Electronically signed by Justin Trujillo 03/09/2018 7:57 AM
[2018-03-09] MEDS: D50W SYRINGE IV PRN ×2 (09:01→18:35)
[2018-03-09] MEDS ORDERED: D50W SYRINGE ONE (09:05)
[2018-03-09] MEDS: LASIX PO SCH (09:07)
[2018-03-09] MEDS: DIFLUCAN PO SCH (09:07)
[2018-03-09] MEDS: CORDARONE PO SCH (09:07)
[2018-03-09] MEDS: LANOXIN PO SCH (09:07)
--- NOTE | 2018-03-09 09:27 | HEMO/ONC PROGRESS NOTE ---
DATE: 03/09/2018 SUBJECTIVE: Patient still gets short of breath at times. Confusion seems slightly better. OBJECTIVE: Vital Signs: Temperature of 98.1 degrees, heart rate 65, respiratory rate 20, blood pressure 124/77, saturating 100% on trach collar. General: The patient is awake, lying in bed. No acute distress noted. HEENT: Anicteric pupils. PERRLA. Mucous membranes appear to be dry. Trach in place. Cardiovascular: S1, S2. Regular rate and rhythm. Chest: Bilateral breath sounds with rhonchi bilaterally. Abdomen: Soft, nontender. Bowel sounds present in all 4 quadrants. Neurologic: Alert and orient x3. No focal deficits noted. Laboratory Data: White blood cell count is 4.05, hemoglobin 8.2, hematocrit 25.3, platelets 72,000. Potassium 3.3, BUN 33, creatinine 1.1. ASSESSMENT AND PLAN: 1. Thrombocytopenia: Platelets still slowly trending downward. Today, they are 72,000. If platelets continue to trend downward, consider IVIG. Continue to monitor closely. Transfuse for platelets less than 20,000 or any signs of bleeding. 2. Acute on chronic hypoxic respiratory failure: Continue recommendations per primary care team and pulmonology. 3. Anemia: Hemoglobin and hematocrit continue to be stable. Continue to monitor. Transfuse as needed. Dictated by BOB García for Grady Travis MD Patient seen and examined. As above. Patients platelet count noted. Brief response to pulse dose steroids. For now continue anticoagulation. Transfuse platelets if bleeding. We may have to give him IVIG if platelets continue to worsen. Grady Travis M.D. cc: BOB García MD [facility]
[2018-03-09] MEDS ORDERED: DIPRIVAN 1% ONE (11:51)
[2018-03-09] MEDS ORDERED: XYLOCAINE 1%/EPI 1:100,000 ONE (12:04)
[2018-03-09] MEDS ORDERED: EPHEDRINE ONE (12:10)
--- NOTE | 2018-03-09 13:13 | Diag Imaging Result Doc PS360 ---
KUB ABDOMEN - 03/09/2018 INDICATION: post peg placement COMPARISON: 03/03/2018 FINDINGS: There is a PEG tube in the left upper quadrant in apparently good position. There is some contrast throughout the colon and rectum. There is an IVC filter stable from prior. There is a left femoral line. IMPRESSION: No evidence of complication. Electronically signed by Justin Trujillo 03/09/2018 1:11 PM
--- NOTE | 2018-03-09 13:34 | OPERATIVE NOTE ---
PROCEDURE DATE: 03/09/2018 PROCEDURE: EGD and PEG tube placement. MEDICATIONS USED: MAC as per anesthesia. SCOPE: Pentax. PREOPERATIVE DIAGNOSIS: Dysphagia, nausea and vomiting. POSTOPERATIVE DIAGNOSES: 1. Dysphagia, nausea and vomiting. 2. Mild gastritis and mild esophagitis. 3. A PEG tube placed. HISTORY: This 72-year-old gentleman currently being treated for aspiration pneumonia and respiratory issues. He has had imaging study showing possibility of achalasia, which was treated with Botox injection. Apparently, it did not respond so that he could eat, and has had episodes of nausea and vomiting. Repeated attempts to feed him would result in nausea and vomiting. The PEG tube is being placed today for nutritional purposes. DESCRIPTION OF PROCEDURE: Informed Consent was obtained from the patient's [id number]. Procedures, benefits and alternatives were explained in layman's terms. They understood all of the pertinent questions and were answered. Patient was brought to the endoscopy unit and was premedicated as per Anesthesia. After adequate sedation, while he was lying in the supine position, the gastroscope was introduced into the posterior pharynx and advanced under direct vision into the esophagus which showed mild hyperemia especially in the distal esophagus from the NG tube that was placed earlier, most likely NG trauma related to his esophagitis. No stricture was noted. Scope could be easily passed through the esophagus into the stomach. Stomach was examined both straight and retroflexed view, which revealed scarring at the body of the stomach from his previous PEG tube placed earlier. The scope was then passed through the normal pylorus, into the duodenal bulb, and then to the second portion of the duodenum which appeared to be normal. The scope was withdrawn back in the stomach where the area of maximum indentation and transillumination was noted and marked. The spot was then cleansed, sterilized, and draped using universal precaution. Using lidocaine with epinephrine, the spot was anesthetized. After adequate anesthesia, a 1 cm long incision was made onto the anterior abdominal wall. Using a needle with a trocar then the stomach was accessed. The needle was removed leaving the trocar in place. A nylon guidewire was passed through the trocar into the stomach which was grasped using a snare and it was brought out with the scope without difficulty. A PEG 24 was then attached onto the distal end of the guidewire, and it was deployed into the stomach by pull-through method without any complication. After that, a dressing was applied. The guidewire was then passed through the PEG tube into the stomach and the distal end was grasped using a forceps. It was advanced into the small bowel all the way as far as I could. Then, the forceps was removed. Then, a PEG tube was passed over the guidewire into the small bowel. The wire was then removed leaving the PEG tube in place. The scope was then removed. Patient tolerated the procedure with no complications noted. Patient was then transferred to the recovery area in a stable condition. IMPRESSION: Dysphagia, nausea and vomiting. PEG tube placed. RECOMMENDATIONS: After 4 to 6 hours, we will resume tube feeding after confirming the position of the PEG tube. We will continue PEG site care and antibiotics. The findings and procedure was discussed with the family members. All of their questions were answered. cc: Christopher Del Rosario MD
[2018-03-09 15:11] LABS: URINE SOURCE CLEAN CATCH
[2018-03-09 15:28] LABS: BILIRUBIN URINE NEGATIVE (NEGATIVE); BLOOD URINE MODERATE (NEGATIVE); COLOR YELLOW; GLUCOSE URINE NEGATIVE (NEGATIVE); KETONE URINE TRACE mg/dL (NEGATIVE); LEUKOCYTES URINE LARGE (NEGATIVE); NITRITE URINE NEGATIVE (NEGATIVE); PROTEIN URINE 50 mg/dL (NEGATIVE); SP GRAVITY URINE 1.012; TURBIDITY URINE HAZY (CLEAR); UROBILINOGEN URINE 2 mg/dL (NORMAL)
[2018-03-09 15:37] LABS: UR EPITHELIAL CELLS <10 /HPF (<10); URINE BACTERIA NEGATIVE /HPF; URINE RBC 20-40 /HPF (<10); URINE WBC 20-40 /HPF (<10)
[2018-03-09] MEDS: SODIUM CHLORIDE 0.9% INJ SCH (15:40)
[2018-03-09] MEDS: PROTONIX IV SCH (15:40)
[2018-03-09 15:50] LABS: URINE CASTS NONE SEEN; URINE CRYSTALS NONE SEEN; URINE SMALL ROUND CELLS RENAL PRESENT; URINE YEAST PRESENT
--- NOTE | 2018-03-09 18:20 | PROGRESS NOTE ---
DATE: 03/09/2018 INTERVAL HISTORY: Remains in atrial fibrillation but rate controlled. Remains on oxygen via tracheostomy collar. Wakes up and does follow most commands, but unclear how much he understands the conversation. Currently n.p.o. for PEG tube placement. Respiratory status fairly stable. No acute events overnight. Nonverbal secondary to tracheostomy but answers yes/no questions and denying any new complaints. REVIEW OF SYSTEMS: A 12-point review of systems negative except as per Interval History. DIAGNOSTIC STUDIES: WBC 4.0, hemoglobin 8.2, hematocrit 25.3. platelets 72, 000. Sodium 146, potassium 3.3, BUN 33, creatinine 1.1, initial glucose 59 and repeat 109. Urinalysis with positive leukocyte esterase, 20-40 WBCs, 20-40 RBCs, no epithelial cells. Repeat urine culture pending. Blood cultures no growth. Chest x-ray with showing no change. Tracheostomy tube still in place. Stable cardiomegaly. Stable bilateral infiltrates and effusions. Abdominal x-ray status post PEG. PEG in place with no complication or acute process. PHYSICAL EXAMINATION: Vital signs: Temperature maximum 99.9 degrees, pulse 83 , respirations 12, blood pressure 115/80, O2 saturation 92% on 40% oxygen via tracheostomy collar. General: No acute distress. HEENT: Normocephalic, atraumatic. Moist mucous membranes. Tracheostomy in place. Cardiovascular: Irregular but normal rate. A 3/6 left lower sternal border murmur noted. Pulmonary: Minimally decreased breath sounds, especially at the bases, otherwise clear to auscultation. Abdomen: Soft. Nontender. Nondistended. Bowel sounds positive. Extremities: Peripheral pulses intact. No clubbing or cyanosis. Neurological: Nonverbal secondary to tracheostomy, but no focal deficits identified. Moving all extremities on command. Psychiatric: Asleep but arousable, following commands. Nonverbal at baseline secondary to tracheostomy. Skin: No new rashes identified. ASSESSMENT AND PLAN: 1. Acute on chronic hypoxic respiratory failure. Patient with tracheostomy in place. Imaging with edema and pulmonary edema and possible pneumonia. Currently off antibiotics, but continuing with diuresis on Lasix 40 daily. 2. Idiopathic thrombocytopenia purpura (ITP). Platelets responded well to steroids initially, but now with some downtrend. No active bleeding and only slight decrease, but we will continue monitoring. Hematology/Oncology following and we will await further recommendations. 3. Left lower extremity deep vein thrombosis (DVT). Continue Lovenox. 4. Atrial fibrillation. Remains in atrial fibrillation, but rate controlled. Continue current medications. 5. Anemia, likely anemia of chronic disease. Blood counts stable. 6. Malnutrition. The patient had significant dysphagia. Conservative measures were attempted, but failed. Patient went for PEG placement this afternoon. 7. Coronary artery disease with recent stent. Currently off aspirin for procedure, but will likely restart tomorrow if no bleeding develops. 8. Deep vein thrombosis (DVT) prophylaxis. Lovenox. [facility]
[2018-03-09] MEDS: DILAUDID IV PRN ×2 (18:36→22:22)
[2018-03-09] MEDS: LOVENOX SUBQ SCH (22:22)
[2018-03-10] MEDS ORDERED: CALMOSEPTINE OINTMENT TOP PRN (02:30)
[2018-03-10] MEDS: DUONEB (A & A) INH SCH ×6 (03:12→23:27)
[2018-03-10] MEDS: LOPRESSOR IV SCH ×4 (04:17→21:34)
[2018-03-10] MEDS: ROBINUL IV SCH ×3 (04:17→21:34)
[2018-03-10] MEDS: SYNTHROID IV SCH (06:00)
[2018-03-10] MEDS: SODIUM CHLORIDE 0.9% INJ PRN (06:01)
[2018-03-10] MEDS: D50W SYRINGE IV PRN (06:25)
[2018-03-10 09:22] LABS: EOS# 0.01 X1000 (0.0-0.7); EOS% 0.2 % (0.0-10.0); HEMATOCRIT 27.2 % (42.0-52.0); HEMOGLOBIN 8.4 g/dL (14.0-18.0); LYMPH# 0.46 X1000 (1.2-3.4); LYMPH% 7.6 % (20.5-51.1); MCH 32.6 PG (27-31); MCHC 30.9 g/dL (33-37); MCV 105.4 FL (81-99); MONO# 0.18 X1000 (0.11-0.59); NEUT# 5.39 X1000 (1.4-6.5); NEUT% 89.2 % (42.2-75.2); PLT 72 X1000 (130-400); RBC 2.58 XMIL (4.7-6.1); RDW 16.9 % (11.5-14.5); WBC 6.04 X1000 (4.8-10.8)
--- NOTE | 2018-03-10 09:37 | HEMO/ONC PROGRESS NOTE ---
DATE: 03/10/2018 SUBJECTIVE: The patient complains of increased amounts of pain. The patient is still slightly agitated at times. Otherwise, no other complaints. OBJECTIVE: Vital Signs: Temperature 99.3 degrees, heart rate 82, respiratory rate 24, blood pressure today 81/53, saturating 95% on nasal cannula. General: Patient is awake, lying in bed. No acute distress noted. HEENT: Anicteric. PERRLA. Mucous membranes noted to be dry. Cardiovascular: S1, S2. Increased rate and rhythm. Abdomen: Soft, tender. Bowel sounds present in all 4 quadrants. G-tube in place. Neurological: Awake and able to follow commands. LABORATORY DATA: CBC pending. ASSESSMENT AND PLAN: 1. Thrombocytopenia: If platelet count drops less than 50,000, the patient will need 2 doses of IVIg. Continue to monitor. Continue to transfuse platelets for any signs of bleeding or for platelets less than 20,000. 2. Acute on chronic hypoxic respiratory failure: Continue recommendations per primary team and pulmonology. 3. Anemia: Hemoglobin and hematocrit continue to be stable. Continue to monitor closely. Transfuse as needed. 4. Supportive care: The patient had gastric tube placed yesterday. Continue recommendations per Gastroenterology. The patient will continue this for his nutrition. Dictated by BOB García for Grady Travis MD Patient seen and examined. Platelet counts are slowly trending down. Discussed with the hospitalist. Continue Lovenox as you are doing. Transfuse platelets if his bleeding. Consider IVIG therapy if platelets down to 50,000. Grady Travis M.D. cc: BOB García MD [facility]
[2018-03-10] MEDS: LASIX PO SCH (09:41)
[2018-03-10] MEDS: LANOXIN PO SCH (09:41)
[2018-03-10] MEDS: DIFLUCAN PO SCH (09:41)
[2018-03-10] MEDS: LOVENOX SUBQ SCH ×2 (09:41→21:34)
[2018-03-10] MEDS: CORDARONE PO SCH (09:41)
[2018-03-10 10:05] LABS: LYMPHS 6 % (21-51); MONO 4 % (1-9); SEGS 90 % (42-75)
[2018-03-10 10:07] LABS: HYPOCHROM 1+
[2018-03-10 12:05] LABS: ALB/GLOB RATIO 4.8; ALBUMIN 3.8 g/dL (3.5-5.0); CALCIUM 8.4 mg/dL (8.8-10.2); CREATININE 1.2 mg/dL (0.7-1.2); PREALBUMIN 9.3 mg/dL (20-40); TOTAL BILIRUBIN 2.39 mg/dL (0.20-1.00); TOTAL PROTEIN 4.6 g/dL (6.3-8.3)
[2018-03-10 12:11] LABS: POTASSIUM 3.5 mmol/L (3.5-5.1)
--- NOTE | 2018-03-10 13:32 | PROGRESS NOTE ---
DATE: 03/10/2018 SUBJECTIVE: Patient is more alert today. He had percutaneous endoscopic jejunostomy tube placed on 03/09/2018. Findings showed mild gastritis and esophagitis. Nurse tried to give the patient some liquid to see if he might get his medications by mouth but he had regurgitation/reflux. We will need to use his feeding tube for medications and tube feedings. OBJECTIVE: Vital signs: Temperature is. 100.8, pulse 88, respirations 18, blood pressure 125/72. In general, patient is awake and alert. He nods his head to questions. Abdomen with abdominal binder in place. I have removed the dressing from his feeding tube use and loosened the bumper and cleaned the site. The site looked good with no redness or drainage noted. LABORATORY: Hematology WBC 6.04, hemoglobin 8.4, hematocrit 27.2, MCV 105.4, platelets 72,000. Chemistry sodium 145, potassium 3.5, chloride 101, CO2 of 32, BUN 27, creatinine 1.2, glucose 70, total bilirubin 2.39, alkaline phosphatase 153, AST 14, ALT 17. ASSESSMENT AND PLAN: 1. Dysphagia. 2. Achalasia. Patient had previous EGD with Botox which not did not improve his refluxing and vomiting. Percutaneous endoscopic jejunostomy tube was placed on 03/09/2018. We will use his gastric port for medications and jejunal port for feedings. Dietary has been consulted for feeding management and will continue to follow and further plans to be made according the patient's progress. The patient was also seen by Dr. Del Rosario. Dictated by BOB Hankins for Christopher Del Rosario MD cc: BOB Winston MD [facility]
[2018-03-10] MEDS: OFIRMEV 1000 MG/ISOTONIC SOLN 1,000 MG/100 ML BOTTLE IV PRN (13:44)
[2018-03-10] MEDS: PROTONIX IV SCH (13:44)
[2018-03-10] MEDS: SODIUM CHLORIDE 0.9% INJ SCH (13:44)
[2018-03-10] MEDS: HALDOL IM PRN (18:19)
--- NOTE | 2018-03-11 01:11 | PROGRESS NOTE ---
DATE: 03/10/2018 SUBJECTIVE: The patient is resting comfortably in bed, not in any obvious distress. OBJECTIVE: Vital Signs: Temperature 98.1 degrees, pulse is 78, respirations 18, blood pressure is 99/62, oxygen saturation is 100%. HEENT: Atraumatic, normocephalic. The patient does have a trach in place. Cardiovascular: S1 and S2 irregular. Respiratory: She has good air entry bilaterally. Abdomen: The patient does have a dressing over the site of J-tube placement. Extremities: No evidence of edema. He does have a scabbed lesion on the dorsal aspect of the right foot. Central Nervous System: No obvious focal deficits noted. LABORATORY DATA: WBC 6.04, hematocrit 27.2, with a platelet count of 72,000. Sodium is 145, potassium 3.5, chloride 101, bicarbonate 32, BUN is BUN 27, creatinine is 1.2. UA shows a large amount of leukocytes, 20-40 WBCs per high-power field. ASSESSMENT AND PLAN: 1. Acute on chronic respiratory failure. The patient does have a tracheostomy in place. On today's chest x-ray, the patient has been ventilated via tracheostomy. The patient is being followed by the Pulmonary team. I will follow up on the patient's arterial blood gas and chest x-ray. 2. Idiopathic thrombocytopenic purpura. Hematology following. Continue steroids. 3. Left lower extremity deep venous thrombosis. Continue Lovenox. 4. Atrial fibrillation. Heart rate is controlled. 5. Anemia. Follow up on hemoglobin and hematocrit. Transfuse packed red blood cells if needed. 6. Nutrition. The patient has recently had a percutaneous endoscopic gastrostomy tube placed. 7. Gastrointestinal prophylaxis. Proton pump inhibitor. 8. Deep vein thrombosis prophylaxis. The patient is on Lovenox. cc: Bill Joy MD
[2018-03-11] MEDS: ROBINUL IV SCH ×4 (02:00→17:46)
[2018-03-11] MEDS: DUONEB (A & A) INH SCH ×6 (03:31→23:30)
[2018-03-11] MEDS: HALDOL IM PRN (03:39)
[2018-03-11] MEDS: LOPRESSOR IV SCH ×5 (03:39→22:23)
[2018-03-11 05:02] LABS: ALLEN TEST YES; BE 12.8 mmoll (-3.0-3.0); BLOOD TYPE ARTERIAL; HCO3-(ACT) 34.9 mmoll (20.0-26.0); METHB 1.1 % (0.0-1.5); O2(CT) 14.5 mL/dL (15.0-23.0); PO2(98.6) 105 mmHg (60-100); SAMPLE BLOOD; THB 10.6 g/dL (11.5-17.4); pH(98.6) 7.43 (7.35-7.45)
[2018-03-11 05:04] LABS: PCO2(98.6) 59 mmHg (35-45)
[2018-03-11 05:05] LABS: MODALITY COOL AEROSOL
[2018-03-11 05:18] LABS: EOS# 0.01 X1000 (0.0-0.7); EOS% 0.2 % (0.0-10.0); HEMATOCRIT 26.7 % (42.0-52.0); HEMOGLOBIN 8.3 g/dL (14.0-18.0); LYMPH# 0.41 X1000 (1.2-3.4); LYMPH% 8.8 % (20.5-51.1); MCH 32.7 PG (27-31); MCHC 31.1 g/dL (33-37); MCV 105.1 FL (81-99); MONO# 0.16 X1000 (0.11-0.59); MONO% 3.4 % (1.7-9.3); MPV 12.7 FL (7.4-10.4); NEUT# 4.07 X1000 (1.4-6.5); NEUT% 87.6 % (42.2-75.2); PLT 60 X1000 (130-400); RBC 2.54 XMIL (4.7-6.1); RDW 16.6 % (11.5-14.5); WBC 4.65 X1000 (4.8-10.8)
[2018-03-11 05:21] LABS: AGAP 10; ALB/GLOB RATIO 2.3; ALBUMIN 3.2 g/dL (3.5-5.0); ALKALINE PHOSPHATASE 132 U/L (32-122); BUN 23 mg/dL (8-22); CALCIUM 7.9 mg/dL (8.8-10.2); CHLORIDE 103 mmol/L (98-107); COSMO 295; CREATININE 0.9 mg/dL (0.7-1.2); ESTIMATED GFR > 60; GLUCOSE 108 mg/dL (70-104); GOT 11 U/L (10-34); GPT 13 U/L (10-44); MAGNESIUM 1.8 mg/dL (1.5-2.7); PHOSPHORUS 1.9 mg/dL (2.7-4.5); POTASSIUM 3.2 mmol/L (3.5-5.1); SODIUM 146 mmol/L (136-145); TCO2 33 mmol/L (25-35); TOTAL BILIRUBIN 2.06 mg/dL (0.20-1.00); TOTAL PROTEIN 4.6 g/dL (6.3-8.3)
[2018-03-11] MEDS: SYNTHROID IV SCH (06:03)
--- NOTE | 2018-03-11 07:15 | Diag Imaging Result Doc PS360 ---
EXAM: CHEST-1 VIEW 03/11/2018 HISTORY: resp. failure TECHNIQUE: AP portable at 0532 COMMENT: There are apparent bilateral lateral pleural effusions. There is hazy pulmonary edema and marked volume loss on the left. The lungs are not as well-expanded as on 03/09/2018. IMPRESSION: Pulmonary edema, pleural effusions, and atelectasis versus pneumonia in the left lower and upper lobes. Electronically signed by Tomi Jiang 03/11/2018 7:13 AM
[2018-03-11] MEDS: DIFLUCAN PO SCH (08:11)
[2018-03-11] MEDS: LASIX PO SCH (08:11)
[2018-03-11] MEDS: CORDARONE PO SCH (08:11)
[2018-03-11] MEDS: LANOXIN PO SCH (08:11)
[2018-03-11] MEDS: LOVENOX SUBQ SCH ×3 (08:12→22:22)
[2018-03-11] MEDS ORDERED: KLOR-CON POWDER PACKET PEG ONE (08:33)
[2018-03-11] MEDS: MUCOMYST 20% INH SCH ×2 (11:29→19:18)
[2018-03-11] MEDS: PROTONIX IV SCH (13:16)
--- NOTE | 2018-03-11 15:43 | PROGRESS NOTE ---
DATE: 03/11/2018 INTERVAL HISTORY: The patient continues to have waxing and waning mental status. Fairly cooperative at the time of my exam, but on discussion with nursing, they state that he evidently becomes confused and attempts to pull at lines or his trach. Currently he is answering yes/no questions and attempting to mouth words. Denies any new complaints. REVIEW OF SYSTEMS: Somewhat limited by patient's nonverbal status, but 12 point review of systems negative, except as per interval history. LABS: WBC 4.6, hemoglobin 8.3, hematocrit 26.7, platelets 60. ABG with pH 7.4 , PCO2 59, PO2 105 on trach collar. Sodium 146, potassium 3.2, BUN 23, creatinine 0.9, glucose 108 , phosphorus 1.9, calcium 7.9, total bilirubin 2.0, alkaline phosphatase 132. IMAGING: Chest x-ray with continued pulmonary edema, pleural effusions and atelectasis versus pneumonia on the left side. OBJECTIVE: Vitals: T-max 100.8 degrees yesterday morning, highest temperature 99.8 degrees so far today, pulse 62, respirations 19 and blood pressure 120/68. O2 saturation 99% on 60% FiO2 via trach collar. General: On physical exam, no acute distress. Vitals as above. HEENT: Normocephalic, atraumatic. Slightly dry mucous membranes. Tracheostomy in place with trach collar overlying. Cardiovascular: Irregular rhythm, but normal rate with lower sternal border murmur, unchanged. Pulmonary: Remains mildly decreased, especially on the left. Abdomen: Soft, nontender. PEG ins place and belly bent overlying. Bowel sounds positive. Extremities: Peripheral pulses decreased, but intact. No clubbing or cyanosis. Neurologic: Limited by patient's mental status, but moving all extremities. Can do them on command. Psychiatric: Awake, alert, nonverbal secondary to trach. Currently appears to be only moderately confused. Skin: A few healing scabbed lesions on the feet, mostly on the right. ASSESSMENT AND PLAN: 1. Acute on chronic hypoxic heart failure. The patient still with tracheostomy in place. Imaging with edema and possible pneumonia. Some concern for recurrent mucous plugging on the left side, but does have breath sounds on that side. Currently off antibiotics with fairly stable respiratory status. Continue with diuresis on a daily basis. May be nearing baseline at this point. 2. Idiopathic thrombocytopenic purpura. Platelets improved with steroids initially, but have been trending down over the last few days. Not yet low enough to require transfusion or IVIG, but may get there. Continue to monitor. No active bleeding noted. 3. Left lower extremity deep vein deep vein thrombosis. Continue Lovenox. 4. Atrial fibrillation. Remains in atrial fibrillation with rate controlled. Continue current regimen. 5. Anemia of chronic disease. Blood count stable. Continue to monitor. 6. Malnutrition. Patient had significant dysphagia secondary to achalasia. Conservative measures were attempted, including Botox injection, but failed. Patient now with percutaneous endoscopic gastrostomy and should be starting tube feeds. 7. Coronary artery disease with recent stent. Was off aspirin for procedure because of thrombocytopenia. Will monitor off aspirin for now, but would like to restart if platelets will stop decreasing. Did also have an intra-abdominal hematoma not too long ago in combination of Lovenox for his clot does make him high risk for bleeding. 8. Deep vein thrombosis prophylaxis. Lovenox. [facility]
[2018-03-12] MEDS: ROBINUL IV SCH ×3 (01:36→17:26)
[2018-03-12] MEDS: DUONEB (A & A) INH SCH ×6 (03:08→23:29)
[2018-03-12] MEDS: LOPRESSOR IV SCH ×4 (03:27→22:01)
[2018-03-12 05:48] LABS: EOS# 0.03 X1000 (0.0-0.7); EOS% 0.5 % (0.0-10.0); HEMOGLOBIN 8.4 g/dL (14.0-18.0); LYMPH% 10.3 % (20.5-51.1); MCH 33.2 PG (27-31); MCHC 31.1 g/dL (33-37); MCV 106.7 FL (81-99); MONO# 0.17 X1000 (0.11-0.59); MONO% 2.9 % (1.7-9.3); MPV 13.1 FL (7.4-10.4); NEUT# 5.04 X1000 (1.4-6.5); NEUT% 86.3 % (42.2-75.2); PLT 64 X1000 (130-400); RBC 2.53 XMIL (4.7-6.1); WBC 5.84 X1000 (4.8-10.8)
[2018-03-12] MEDS: SYNTHROID IV SCH (06:23)
[2018-03-12 07:36] LABS: ANISOCYTOSIS 1+; BANDS 4 % (0-1); HYPOCHROM 1+; LYMPHS 4 % (21-51); MONO 2 % (1-9); SEGS 90 % (42-75)
[2018-03-12] MEDS: MUCOMYST 20% INH SCH ×2 (08:05→19:59)
[2018-03-12] MEDS: DIFLUCAN PO SCH (08:52)
[2018-03-12] MEDS: LANOXIN PO SCH (08:52)
[2018-03-12] MEDS: CORDARONE PO SCH (08:52)
[2018-03-12] MEDS: LASIX PO SCH (08:52)
[2018-03-12] MEDS: LOVENOX SUBQ SCH ×3 (08:53→22:01)
[2018-03-12 09:28] LABS: AGAP 8; ALB/GLOB RATIO 2.8; ALBUMIN 3.4 g/dL (3.5-5.0); ALKALINE PHOSPHATASE 133 U/L (32-122); BUN 18 mg/dL (8-22); CALCIUM 8.2 mg/dL (8.8-10.2); CHLORIDE 104 mmol/L (98-107); COSMO 297; CREATININE 0.9 mg/dL (0.7-1.2); ESTIMATED GFR > 60; GLUCOSE 108 mg/dL (70-104); GOT 11 U/L (10-34); GPT 12 U/L (10-44); MAGNESIUM 1.7 mg/dL (1.5-2.7); PHOSPHORUS 1.5 mg/dL (2.7-4.5); POTASSIUM 3.4 mmol/L (3.5-5.1); SODIUM 148 mmol/L (136-145); TCO2 36 mmol/L (25-35); TOTAL PROTEIN 4.6 g/dL (6.3-8.3)
[2018-03-12] MEDS: SODIUM CHLORIDE 0.9% INJ SCH (13:29)
[2018-03-12] MEDS: HALDOL IM PRN (13:29)
[2018-03-12] MEDS: PROTONIX IV SCH (13:29)
[2018-03-12] MEDS ORDERED: POTASSIUM PHOSPHATE 40 MEQ in NS 250 ML IV ONE (14:46)
--- NOTE | 2018-03-12 15:46 | PROGRESS NOTE ---
DATE: 03/12/2018 SUBJECTIVE: The patient resting in bed. Not in any obvious distress. OBJECTIVE: Vital signs: Temperature 97.8 degrees, pulse 75, respirations 22, blood pressure 121/70, oxygen saturation is 100%. HEENT: Atraumatic, normocephalic. Does have tracheostomy collar in place. Cardiovascular: S1, S2. Respiratory: Has occasional rhonchi in the lung noel. Abdomen: Soft. Dressing over the anterior abdomen. Extremities: No evidence of edema. Central nervous system: No obvious focal deficits noted. DIAGNOSTIC STUDIES: WBC is 5.4, hematocrit 27, with a platelet count of 64,000. Sodium is 134, potassium 3.4, chloride is 104, bicarbonate is 36, BUN is 18, creatinine 0.9, glucose is 108. Phosphorus level is 1.5. ASSESSMENT AND PLAN: 1. Acute respiratory failure. The patient does have tracheostomy in place. We will continue to follow up on patient's respiratory status. The patient is being followed by the pulmonary team. 2. Idiopathic thrombocytopenia purpura (ITP). Continue steroids. 3. Left lower extremity deep vein thrombosis (DVT). Continue Lovenox. 4. Atrial fibrillation. Heart rate is controlled. 5. Anemia. Follow up on hemoglobin and hematocrit. Transfuse PRBCs as needed. 6. Nutritional. The patient has recently had a percutaneous endoscopic gastrostomy (PEG) put in place. Initiate PEG feeding. 7. Hypokalemia/hypophosphatemia. Replace potassium as well as a phosphorus using K-Phos. 8. Gastrointestinal (GI) prophylaxis. Proton pump inhibitor (PPI). 9. Deep vein thrombosis (DVT) prophylaxis. Lovenox. cc: Bill Joy MD
[2018-03-13] MEDS: ROBINUL IV SCH ×3 (00:36→17:34)
[2018-03-13] MEDS: DUONEB (A & A) INH SCH ×6 (03:28→23:47)
[2018-03-13] MEDS: LOPRESSOR IV SCH ×4 (04:56→21:04)
[2018-03-13 05:31] LABS: EOS# 0.04 X1000 (0.0-0.7); EOS% 0.7 % (0.0-10.0); HEMATOCRIT 27.1 % (42.0-52.0); HEMOGLOBIN 8.1 g/dL (14.0-18.0); LYMPH# 0.63 X1000 (1.2-3.4); LYMPH% 11.6 % (20.5-51.1); MCH 31.9 PG (27-31); MCHC 29.9 g/dL (33-37); MCV 106.7 FL (81-99); MONO# 0.16 X1000 (0.11-0.59); MONO% 2.9 % (1.7-9.3); NEUT# 4.62 X1000 (1.4-6.5); NEUT% 84.8 % (42.2-75.2); PLT 61 X1000 (130-400); RBC 2.54 XMIL (4.7-6.1); RDW 17.3 % (11.5-14.5); WBC 5.45 X1000 (4.8-10.8)
[2018-03-13 05:49] LABS: AGAP 9; BUN 18 mg/dL (8-22); CHLORIDE 104 mmol/L (98-107); COSMO 298; CREATININE 0.8 mg/dL (0.7-1.2); ESTIMATED GFR > 60; GLUCOSE 98 mg/dL (70-104); POTASSIUM 3.8 mmol/L (3.5-5.1); SODIUM 149 mmol/L (136-145); TCO2 36 mmol/L (25-35)
[2018-03-13] MEDS: SODIUM CHLORIDE 0.9% INJ PRN (06:46)
[2018-03-13] MEDS: SYNTHROID IV SCH (06:46)
--- NOTE | 2018-03-13 07:27 | Diag Imaging Result Doc PS360 ---
EXAM: CHEST-1 VIEW INDICATION: resp failure TECHNIQUE: One view COMPARISON: 03/11/2018 FINDINGS: A tracheostomy tube is in stable position. There has been improvement in the pleural effusion on the left and there is better aeration at the left lung as compared to the previous study. Pulmonary edema is again noted similar to the previous study on the right. No new consolidation is identified. Cardiac silhouette is stable. IMPRESSION: Interval improvement on the left as described. Electronically signed by Zacarias Beverly 03/13/2018 7:25 AM
[2018-03-13] MEDS: MUCOMYST 20% INH SCH ×2 (07:47→19:23)
[2018-03-13] MEDS: LASIX PO SCH (08:50)
[2018-03-13] MEDS: DIFLUCAN PO SCH (08:50)
[2018-03-13] MEDS: LANOXIN PO SCH (08:52)
[2018-03-13] MEDS: CORDARONE PO SCH (08:52)
--- NOTE | 2018-03-13 09:13 | HEMO/ONC PROGRESS NOTE ---
DATE: 03/13/2018 SUBJECTIVE: The patient's confusion continues to come and go. The patient is trying to answer questions at this time though. The patient is in no obvious distress. OBJECTIVE: Vital Signs: Temperature of 97.8 degrees, heart rate 65, respiratory rate 18, blood pressure 115/67, saturating 100% on a trach collar. General: The patient is awake, lying in bed. No acute distress noted. HEENT: Anicteric. Pupils PERRLA. Mucous membranes appear to be dry. Cardiovascular: S1, S2. Regular rhythm. Chest: Bilateral breath sounds are rhonchi bilaterally. Tracheostomy in place with trach collar for oxygen. Abdomen: Soft. Mildly tender. Dressing in place. Neurological: No focal deficits noted. Laboratory Data: White blood cell count is 5.45, hemoglobin 8.1, hematocrit 27.1, platelets are 61,000. Potassium 3.8, BUN 18, creatinine 0.8. ASSESSMENT/PLAN: 1. Thrombocytopenia: Platelet count today continues to be stable at 61,000. Continue to monitor closely. If platelets drop less than 50,000, consider IVIG. Continue to monitor closely and transfuse for any signs of bleeding or for platelets less than 20,000. 2. Acute on chronic hypoxic respiratory failure: Continue recommendations per primary medical team and pulmonology. 3. Anemia: Hemoglobin and hematocrit continue to be stable. Today, hemoglobin is 8.1, hematocrit 27.1. Continue to monitor closely. 4. Nutrition: Continue with tube feeds as ordered. Continue to have patient get stronger. 5. Deep venous thrombosis prophylaxis: Continue Lovenox as ordered. Dictated by BOB García for Grady Travis MD cc: BOB García MD
[2018-03-13] MEDS: LOVENOX SUBQ SCH ×2 (09:23→23:39)
[2018-03-13] MEDS: MILK OF MAGNESIA PO PRN (11:52)
--- NOTE | 2018-03-13 12:07 | PROGRESS NOTE ---
DATE: 03/13/2018 SUBJECTIVE: Patient is awake. He is nodding his head to question. He mouths answers. Per nurse report, he is tolerating his tube feeding. His last bowel movement was March 09. OBJECTIVE: Vital Signs: Temperature 98.9 degrees, pulse 85, respirations 18, blood pressure 125/84. General: Patient is awake, in no acute distress. Abdomen: PEG tubes sites with abdominal binder in place. He is receiving feeding without difficulty. LABORATORY: Hematology: WBC 5.45, hemoglobin 8.1, hematocrit 27.1, MCV 106.7, platelets 61,000. Chemistry: Sodium 149, potassium 3.8, chloride 104, CO2 36, BUN 18, creatinine 0.8, glucose 98, calcium 8.0. ASSESSMENT AND PLAN: 1. Acute respiratory failure. Patient has O2 by tracheostomy collar. 2. Nutritional status with achalasia. EGD and Botox injection did not help with patient's vomiting. A percutaneous endoscopic jejunostomy tube was placed and will continue feedings per tube, along with medications. Follow strict antireflux measures. Further plans will be made according to his progress. Continue patient's laxative regimen. I have discussed this case with Dr. Del Rosario. Dictated by BOB Hankins for Christopehr Del Rosario MD cc: BOB Winston MD
[2018-03-13] MEDS: SODIUM CHLORIDE 0.9% INJ SCH (14:08)
[2018-03-13] MEDS: PROTONIX IV SCH (14:08)
--- NOTE | 2018-03-13 14:49 | PROGRESS NOTE ---
DATE: 03/13/2018 SUBJECTIVE: The patient is resting in bed not in any obvious distress. OBJECTIVE: Vital signs are as follows: Temperature 98.5, pulse 83, respirations 19, blood pressure 124/76, oxygen saturation is 100%. HEENT: Atraumatic, normocephalic. Neck: He does have a trach in place. Cardiovascular: S1, S2. Respiratory system has evidence of good air entry bilaterally. Abdomen has a dressing over the PEG site. Extremities: No evidence of edema. Central Nervous System: The patient is awake. No obvious focal deficits noted. LABORATORY DATA: WBC is 5.45, hematocrit 27.1 with a platelet count of 61,000. Sodium is 149, potassium 3.8, chloride is 104, bicarb 26. BUN is 18, creatinine 0.8. X-ray of the chest shows improvement in pleural effusion on the left. There is also better aeration of the left lung compared to previous study. ASSESSMENT AND PLAN: 1. Acute respiratory failure. The patient does have a trach in place. Continue to follow up on the patient's clinical progression. The patient has been followed by the pulmonary team. 2. Left lower extremity deep venous thrombosis. Continue Lovenox. 3. Atrial fibrillation. Heart rate controlled. 4. Anemia. Follow up on hemoglobin, hematocrit. Transfuse PRBCs as needed. 5. Malnutrition. Initiate feeding via PEG tube. 6. Hypokalemia/hypophosphatemia, corrected. 7. Deep vein thrombosis prophylaxis; Lovenox. 8. Gastrointestinal prophylaxis; proton pump inhibitor. cc: Bill Joy MD MTDD
[2018-03-14] MEDS: LOPRESSOR IV SCH ×5 (03:18→21:15)
[2018-03-14] MEDS: ROBINUL IV SCH ×3 (03:18→21:23)
[2018-03-14] MEDS: DUONEB (A & A) INH SCH ×6 (03:40→23:47)
[2018-03-14 06:06] LABS: EOS# 0.04 X1000 (0.0-0.7); EOS% 0.7 % (0.0-10.0); HEMATOCRIT 25.4 % (42.0-52.0); HEMOGLOBIN 7.9 g/dL (14.0-18.0); LYMPH# 0.59 X1000 (1.2-3.4); LYMPH% 10.3 % (20.5-51.1); MCH 33.1 PG (27-31); MCHC 31.1 g/dL (33-37); MCV 106.3 FL (81-99); MONO# 0.25 X1000 (0.11-0.59); MONO% 4.4 % (1.7-9.3); MPV 12.9 FL (7.4-10.4); NEUT# 4.86 X1000 (1.4-6.5); NEUT% 84.6 % (42.2-75.2); PLT 77 X1000 (130-400); RBC 2.39 XMIL (4.7-6.1); RDW 17.3 % (11.5-14.5); WBC 5.74 X1000 (4.8-10.8)
[2018-03-14] MEDS: SODIUM CHLORIDE 0.9% INJ PRN (06:15)
[2018-03-14] MEDS: SYNTHROID IV SCH (06:16)
[2018-03-14] MEDS: MUCOMYST 20% INH SCH ×2 (07:40→19:05)
[2018-03-14] MEDS: CORDARONE PO SCH (08:46)
[2018-03-14] MEDS: LASIX PO SCH (08:47)
[2018-03-14] MEDS: DIFLUCAN PO SCH (08:47)
[2018-03-14] MEDS: MILK OF MAGNESIA PO PRN (08:47)
[2018-03-14 09:13] LABS: MAGNESIUM 1.7 mg/dL (1.5-2.7); PHOSPHORUS 2.4 mg/dL (2.7-4.5)
[2018-03-14 09:17] LABS: ALB/GLOB RATIO 2.5; ALBUMIN 3.5 g/dL (3.5-5.0); ALKALINE PHOSPHATASE 132 U/L (32-122); BUN 18 mg/dL (8-22); CALCIUM 8.2 mg/dL (8.8-10.2); CREATININE 0.9 mg/dL (0.7-1.2); ESTIMATED GFR > 60; GLUCOSE 87 mg/dL (70-104); GOT 11 U/L (10-34); GPT 11 U/L (10-44); TCO2 36 mmol/L (25-35); TOTAL PROTEIN 4.9 g/dL (6.3-8.3)
[2018-03-14 09:25] LABS: AGAP 9; CHLORIDE 100 mmol/L (98-107); COSMO 290; POTASSIUM 4.2 mmol/L (3.5-5.1); SODIUM 145 mmol/L (136-145)
[2018-03-14] MEDS: LANOXIN PO SCH ×2 (09:44→10:04)
[2018-03-14] MEDS: LOVENOX SUBQ SCH ×2 (10:04→21:15)
[2018-03-14] MEDS ORDERED: MAGNESIUM SULFATE 2 GM/S.W.I. 2 GM/50 ML IVPB IV ONE (10:05)
[2018-03-14] MEDS: LACTULOSE PO SCH (11:56)
--- NOTE | 2018-03-14 12:05 | PROGRESS NOTE ---
DATE: 03/14/2018 SUBJECTIVE: The patient was resting. He aroused easily in no acute distress. The nurse states he is tolerating his feeding. He has not had a bowel movement since 03/09/2018. OBJECTIVE: Vital Signs: Temperature 99.2, pulse 67, respirations 15, blood pressure 103/51. LABORATORY: Hematology: WBC 5.74. Hemoglobin 7.9, hematocrit 25.4, MCV 106.3, platelets 77,000. Chemistry: Sodium 145, potassium 4.2, chloride 100, CO2 of 36. BUN 18, creatinine 0.9, glucose 87. ASSESSMENT AND PLAN: 1. Acute respiratory failure. O2 by tracheostomy collar. 2. Esophagogastroduodenoscopy with Botox injection due to achalasia did not help his reflux and vomiting. PEG tube was placed. Continue feedings. 3. Constipation. He is getting Milk of Magnesia as needed. We will add lactulose 30 mL everyday and decrease dose according to his response. We will continue to follow and further plans will be made according to his progress. I have discussed this case with Dr. Del Rosario. Dictated by BOB Hankins for Christopher Del Rosario MD cc: BOB Winston MD
[2018-03-14] MEDS: PROTONIX IV SCH (14:41)
--- NOTE | 2018-03-14 17:49 | PROGRESS NOTE ---
DATE: 03/14/2018 SUBJECTIVE: The patient is a is resting comfortably. He is in wrist restraints. OBJECTIVE: Vital Signs: Temperature 98.9, blood pressure 100/65, heart rate 64, respirations 18. O2 sats 100% on trach collar. General: This is a chronically ill-appearing elderly male lying in bed in no acute distress. Heart: S1, S2 normal. Lungs: Coarse breath sounds bilaterally. Abdomen: Positive bowel sounds. There is a feeding tube in place. Extremities: No edema, no cyanosis. The extremities are cold to touch. Neurologic: The patient is alert and oriented. LABS: White blood cell count 5.7, hemoglobin 7.9, hematocrit 25, platelets 77,000. Sodium 145, potassium 4.2, chloride 100, CO2 36, BUN 18, creatinine 0.9, glucose 87, magnesium 1.7, phosphorus 2.4, calcium 8.2. ASSESSMENT AND PLAN: 1. Acute on chronic hypoxemic respiratory failure. The patient is currently on a trach collar. Continue with pulmonary toiletry. 2. ITP. Stable. We will continue to monitor this closely. 3. Left lower extremity DVT. The patient is on full-dose Lovenox. 4. Paroxysmal atrial fibrillation. Continue on digoxin, Lopressor and amiodarone. 5. Status post PEG tube placement secondary to oropharyngeal dysphagia. The patient is tolerating tube feeds. 6. Constipation. The patient has been started back on lactulose. 7. Hypothyroidism. Continue on Synthroid. 8. GI prophylaxis. Continue on IV Protonix. 9. Disposition. The patient will be transferred to CICU. cc: Lilian Regan MD
[2018-03-14] MEDS: DILAUDID IV PRN (19:11)
[2018-03-14] MEDS: ZOFRAN IV PRN (19:12)
[2018-03-15] MEDS: LOPRESSOR IV SCH ×4 (02:37→22:32)
[2018-03-15] MEDS: DUONEB (A & A) INH SCH ×6 (03:30→23:15)
[2018-03-15] MEDS: SYNTHROID IV SCH ×2 (04:59→06:09)
[2018-03-15] MEDS: ZOFRAN IV PRN (05:00)
[2018-03-15] MEDS: ROBINUL IV SCH ×3 (05:04→22:32)
[2018-03-15 06:16] LABS: CALCIUM 8.3 mg/dL (8.8-10.2); CREATININE 1.3 mg/dL (0.7-1.2); PHOSPHORUS 2.6 mg/dL (2.7-4.5); POTASSIUM 4.8 mmol/L (3.5-5.1)
[2018-03-15 06:18] LABS: EOS# 0.02 X1000 (0.0-0.7); EOS% 0.3 % (0.0-10.0); HEMOGLOBIN 7.6 g/dL (14.0-18.0); LYMPH# 0.77 X1000 (1.2-3.4); LYMPH% 12.2 % (20.5-51.1); MCH 32.8 PG (27-31); MCHC 30.4 g/dL (33-37); MCV 107.8 FL (81-99); MONO# 0.42 X1000 (0.11-0.59); MONO% 6.7 % (1.7-9.3); MPV 12.7 FL (7.4-10.4); NEUT# 5.08 X1000 (1.4-6.5); NEUT% 80.8 % (42.2-75.2); PLT 73 X1000 (130-400); RBC 2.32 XMIL (4.7-6.1); RDW 17.4 % (11.5-14.5); WBC 6.29 X1000 (4.8-10.8)
[2018-03-15 06:44] LABS: PREALBUMIN 7.4 mg/dL (20-40)
[2018-03-15] MEDS: MUCOMYST 20% INH SCH ×2 (07:32→19:15)
[2018-03-15 11:03] LABS: ALLEN TEST NO; BE 16.4 mmoll (-3.0-3.0); BLOOD TYPE ARTERIAL; HCO3-(ACT) 37.7 mmoll (20.0-26.0); METHB 2.7 % (0.0-1.5); O2(CT) 9.9 mL/dL (15.0-23.0); O2HB 91.9 % (95.0-99.0); PO2(98.6) 71 mmHg (60-100); SAMPLE BLOOD; SAO2 96.3 % (95.0-100.0); THB 7.6 g/dL (11.5-17.4)
[2018-03-15 11:05] LABS: MODALITY COOL AEROSOL
[2018-03-15 11:06] LABS: PCO2(98.6) 53 mmHg (35-45)
[2018-03-15] MEDS: CORDARONE PO SCH (11:12)
[2018-03-15] MEDS: DIFLUCAN PO SCH (11:12)
[2018-03-15] MEDS: LANOXIN PO SCH (11:12)
[2018-03-15] MEDS: LACTULOSE PO SCH (11:13)
[2018-03-15] MEDS: NEUTRA-PHOS PO SCH ×2 (11:13→22:33)
--- NOTE | 2018-03-15 11:17 | Diag Imaging Result Doc PS360 ---
EXAM: FLAT/UPRIGHT ABD/1 VIEW CHEST HISTORY: aspiration/constipation TECHNIQUE: Flat and upright, three views COMPARISON: Chest compared to 05/27/2018 FINDINGS: There is a tracheostomy tube. There are bilateral infiltrates with small moderate-sized pleural effusions. Findings are fairly similar to the prior exam. There is stool throughout the colon. The bowel loops are not dilated. No organomegaly. An inferior vena caval filter overlies the mid lumbar vertebra on the right. Prominent atherosclerosis. There is a left inguinal vascular catheter. IMPRESSION: Prominent constipation. No improvement in the chest. Electronically signed by Ren Ortega 03/15/2018 11:15 AM
[2018-03-15] MEDS ORDERED: DULCOLAX PR ONE (11:21)
[2018-03-15] MEDS ORDERED: DIFLUCAN 100 MG/NS 100 MG/50 ML IVPB IV ONE (11:22)
[2018-03-15] MEDS: LOVENOX SUBQ SCH ×2 (11:24→22:32)
[2018-03-15] MEDS: D5W 1,000 ML IV SCH ×2 (11:24→22:33)
[2018-03-15] MEDS: LANOXIN IV SCH (12:42)
--- NOTE | 2018-03-15 13:36 | PROGRESS NOTE ---
DATE: 03/15/2018 SUBJECTIVE: The patient has been moved out of the Intensive Care Unit into [facility]. The patient is not as alert today. Per nurse report, he had episodes of vomiting last night. His feeding is currently on hold. Abdominal x-ray today showed prominent constipation with continued bilateral infiltrates and small moderate size pleural effusions similar to a prior exam. Per nurse report, apparently they will be having a family meeting tomorrow. OBJECTIVE: Vital Signs: Temperature 99.2, pulse 84, respirations 18, blood pressure 98/42. Generally, patient is with eyes closed. He is not as awake or alert today. LABORATORY: Hematology: WBC 6.29, hemoglobin 7.6, hematocrit 25.0, MCV 107.8, platelets 73,000. Chemistry: Sodium 146, potassium 4.8, chloride 101, CO2 of 34. BUN 26, creatinine 1.3, glucose 88. ASSESSMENT AND PLAN: 1. Acute/chronic respiratory failure. Patient has O2 by tracheostomy collar. 2. Dysphagia. Patient had EGD with Botox which did not improve his vomiting, so a PEJ tube was placed. He continues to have episodes of vomiting. Would recommend adjusting the tube feeding rate, maybe being holding the tube feedings at night and adjustments to be made according to patient's response. 3. Constipation. Recommend to continue laxative regimen. I believe they have held the laxatives by the tube today since he had vomiting. He has gotten a Dulcolax suppository. We will continue to follow. 4. Anemia. Continue to follow. 5. Atrial fibrillation; on medications. 6. [employer] will continue to follow. Recommend decreasing his feeding tube rate and adjusting according to his response. We may need to hold his tube feedings at night. The family will be discussing future plans. The patient has been made a Do Not Resuscitate per nurse report. I have discussed this case with Dr. Del Rosario. Further plans will be made as needed. Dictated by BOB Hankins for Christopher Del Rosario MD cc: OBB Winston MD [facility]
[2018-03-15] MEDS ORDERED: FLEET MINERAL OIL ENEMA PR ONE (15:12)
[2018-03-15] MEDS: PROTONIX IV SCH (15:18)
--- NOTE | 2018-03-15 20:18 | PROGRESS NOTE ---
DATE: 03/15/2018 SUBJECTIVE: The patient is not as interactive this morning. As per nursing staff, the patient was noted to be vomiting up tube feed and possibly aspirated overnight and this morning. His O2 requirements have increased since yesterday. OBJECTIVE: Vital Signs: Temperature 98.2, pressure 98/41, heart rate 68, respirations 18, O2 sats 96% on trach collar, with a oxygen flow rate of 60%. General: This is a chronically ill- appearing elderly male lying in bed. HEENT: Head normocephalic, atraumatic. Heart: S1, S2, normal. Regular rate and rhythm. Lungs: Coarse breath sounds bilaterally with wheezing. Abdomen: Positive bowel sounds. Soft, nontender, nondistended. Extremities: No edema, no cyanosis. Neurologic: The patient is a awake, but confused. LABS: White blood cell count 6.2, hemoglobin 7.6, hematocrit 25, platelets 73,000. Sodium 146, potassium 4.8, chloride 101, CO2 34, BUN 26, creatinine 1.3, glucose 88. Abdominal x-ray shows prominent constipation throughout the colon. ASSESSMENT AND PLAN: 1. Acute on chronic hypoxemic respiratory failure. The patient appears to have aspirated again. His tube feeds have been placed on hold. Will continue with pulmonary toiletry. We will also order a chest x-ray for tomorrow morning. 2. Status post PEG tube placement secondary to oropharyngeal achalasia, status post Botox and dilation. The patient had an episode of aspiration overnight. His tube feeds are on hold. 3. Constipation. Will order a an enema and Dulcolax suppository. We will order an abdominal x- ray for tomorrow. 4. Hypothyroidism. Continue on Synthroid. 5. Paroxysmal atrial fibrillation. Continue on digoxin, Lopressor and amiodarone. 6. Left lower extremity DVT. Continue on full-dose Lovenox. 7. ITP. Stable. 8. GI prophylaxis. Continue on IV Protonix. 9. Disposition. The patient is now a DNR level 1. I will be meeting with the patient's power of title attorney with Palliative Care tomorrow. cc: Lilian Regan MD
[2018-03-16] MEDS: DUONEB (A & A) INH SCH ×4 (03:05→15:54)
[2018-03-16] MEDS: OFIRMEV 1000 MG/ISOTONIC SOLN 1,000 MG/100 ML BOTTLE IV PRN (05:12)
[2018-03-16] MEDS: LOPRESSOR IV SCH ×3 (05:14→16:03)
[2018-03-16 05:33] LABS: EOS# 0.02 X1000 (0.0-0.7); EOS% 0.4 % (0.0-10.0); HEMATOCRIT 23.9 % (42.0-52.0); HEMOGLOBIN 7.4 g/dL (14.0-18.0); LYMPH# 0.76 X1000 (1.2-3.4); LYMPH% 16.3 % (20.5-51.1); MCH 32.9 PG (27-31); MCV 106.2 FL (81-99); MONO# 0.27 X1000 (0.11-0.59); MONO% 5.8 % (1.7-9.3); MPV 12.4 FL (7.4-10.4); NEUT# 3.62 X1000 (1.4-6.5); NEUT% 77.5 % (42.2-75.2); PLT 80 X1000 (130-400); RBC 2.25 XMIL (4.7-6.1); RDW 17.4 % (11.5-14.5); WBC 4.67 X1000 (4.8-10.8)
[2018-03-16 05:44] LABS: CALCIUM 8.1 mg/dL (8.8-10.2); CREATININE 1.4 mg/dL (0.7-1.2); POTASSIUM 4.3 mmol/L (3.5-5.1)
[2018-03-16 05:59] LABS: ALLEN TEST YES; BE 12.3 mmoll (-3.0-3.0); BLOOD TYPE ARTERIAL; HCO3-(ACT) 34.5 mmoll (20.0-26.0); METHB 1.9 % (0.0-1.5); O2(CT) 10.5 mL/dL (15.0-23.0); O2HB 95.4 % (95.0-99.0); PCO2(98.6) 47 mmHg (35-45); PO2(98.6) 148 mmHg (60-100); SAMPLE BLOOD; SAO2 99.7 % (95.0-100.0); THB 7.6 g/dL (11.5-17.4)
[2018-03-16 06:00] LABS: MODALITY COOL AEROSOL
[2018-03-16] MEDS: SYNTHROID IV SCH (06:35)
[2018-03-16] MEDS: ROBINUL IV SCH ×2 (06:35→16:10)
[2018-03-16] MEDS: SODIUM CHLORIDE 0.9% INJ PRN (06:36)
[2018-03-16] MEDS: MUCOMYST 20% INH SCH (07:37)
--- NOTE | 2018-03-16 07:39 | Diag Imaging Result Doc PS360 ---
EXAM: CHEST-1 VIEW INDICATION: SOB TECHNIQUE: One view COMPARISON: 03/15/2018 FINDINGS: Tracheostomy tube is in stable position. Pulmonary venous congestion and bilateral infiltrates suggesting edema are approximately stable. There is suggestion of bilateral pleural effusions, larger on the left, stable. No new consolidation is identified. Cardiac silhouette is stable. IMPRESSION: Essentially stable chest. Electronically signed by Zacarias Beverly 03/16/2018 7:37 AM
--- NOTE | 2018-03-16 07:42 | Diag Imaging Result Doc PS360 ---
EXAM: ABDOMEN FLAT/UPRIGHT INDICATION: constipation TECHNIQUE: 2 views COMPARISON: 03/15/2018 FINDINGS: Support tubes and lines are in stable positions. There is retained barium in the descending colon and rectum similar to the previous study. The amount of stool is fairly similar to the previous study. There is no obstructive bowel pattern. There is no evidence of large volume free abdominal gas. The abdomen is grossly stable, otherwise. IMPRESSION: Essentially stable abdomen. Electronically signed by Zacarias Beverly 03/16/2018 7:39 AM
[2018-03-16] MEDS ORDERED: DULCOLAX PR ONE (08:29)
[2018-03-16] MEDS ORDERED: DIFLUCAN 100 MG/NS 100 MG/50 ML IVPB IV SCH (09:00)
--- NOTE | 2018-03-16 09:19 | HEMO/ONC PROGRESS NOTE ---
DATE: 03/16/2018 SUBJECTIVE: Patient lying in bed. Patient not as responsive as in the past. OBJECTIVE: Vital Signs: Temperature 97.1 degrees, heart rate 60, respiratory rate 20, blood pressure 80/47, saturation 100% on trach collar. General: The patient is lying in bed, responds to stimuli. HEENT: Anicteric. PERRLA. Mucous membranes appear to be dry. Cardiovascular: S1, S2. Regular rate and rhythm. Lungs: Breath sounds with wheezing bilaterally. Abdomen: Soft, nontender. Bowel sounds present in all 4 quadrants. Neurologic: Awake. LABORATORY DATA: White blood cell count 4.67, hemoglobin 7.4, hematocrit 23.9, platelets 80,000. Potassium 4.3, BUN 30, creatinine 1.4. ASSESSMENT AND PLAN: 1. Thrombocytopenia: Platelet counts continue to be stable today at 80,000. Just continue to monitor at this time. Transfuse if platelets less than 20,000 or for any signs of bleeding. 2. Acute on chronic hypoxic respiratory failure: The patient possibly aspirated tube feeds. Continue recommendations by primary medical team. 3. Anemia. Hemoglobin today 7.4, hematocrit 23.9. Continue to monitor. Transfuse as needed. Dictated by BOB García for Grady Travis MD cc: BOB García MD
[2018-03-16] MEDS: CORDARONE PO SCH (09:27)
[2018-03-16] MEDS: NEUTRA-PHOS PO SCH (09:27)
[2018-03-16] MEDS: LACTULOSE PO SCH (09:28)
[2018-03-16] MEDS: LANOXIN IV SCH (09:31)
[2018-03-16] MEDS: LOVENOX SUBQ SCH (09:32)
[2018-03-16] MEDS: D5W 1,000 ML IV SCH ×2 (09:33→14:12)
[2018-03-16] MEDS: PROTONIX IV SCH (16:10)
[2018-03-16 16:36] VITALS: BP 89/52
--- NOTE | 2018-03-16 17:30 | PROGRESS NOTE ---
DATE: 03/16/2018 SUBJECTIVE: The patient is more awake and alert today. He had a large bowel movement overnight after receiving a Dulcolax suppository. OBJECTIVE: Vital Signs: Temperature 97 degrees, blood pressure 89/52, heart rate 68, respirations 24, O2 saturation is 99% on the trach collar. General: This is a chronically ill- appearing, elderly male, lying in bed, in no acute distress. Heart: S1, S2 normal. Regular rate and rhythm. Lungs: Coarse breath sounds bilaterally. Abdomen: Positive bowel sounds. Soft, nontender, nondistended. Extremities: No edema. No cyanosis. Neurologic: The patient is awake and alert. LABS: White blood cell count 4.6, hemoglobin 7.4, hematocrit 23, platelets 80,000. Sodium 140, potassium 4.3, chloride 96, CO2 32, BUN 30, creatinine 1.4, glucose 99. ASSESSMENT AND PLAN: 1. Acute on chronic hypoxemic respiratory failure. Continue with supportive care. 2. Status post percutaneous endoscopic gastrostomy tube placement secondary to oropharyngeal achalasia, status post dilation and Botox. Aware. 3. Constipation. Continue with laxative therapy. 4. Hypothyroidism. Continue on Synthroid. 5. Idiopathic thrombocytopenic purpura. Stable. 6. Left lower extremity deep vein thrombosis. Continue on full-dose Lovenox. 7. Disposition. I met with the patient's family and power of health care attorney today and they have decided to transition the patient to comfort measures tomorrow. At that time, we will discontinue the patient's wrist restraints and allow him to eat whatever he wants and provide Ativan and morphine for comfort. The patient is currently a DNR level 1. cc: Lilian Regan MD
== END 2018-03-16 17:29 | disposition hospice, inpatient (51) | DRG 870 ==
LOC: ED 08:32 → SUATTDRO 12:22 → ICU 12:22 → 3S 03-14 14:36
PROVIDERS: ATTEND Internal Medicine
CPT/HCPCS: 36430; 43752; 71010; 71045; 71250; 74000; 74018; 74019; 74020; 74022; 74220; 76705; 76870; 80048; 80053; 80069; 80162; 80202; 81001; 82140; 82533; 82550; 82570; 82607; 82728; 82746; 82805; 82948; 83036; 83540; 83550; 83605; 83735; 83880; 83930; 83935; 84100; 84134; 84145; 84156; 84439; 84443; 84484; 85014; 85018; 85025; 85027; 85384; 85610; 85730; 86022; 86850; 86900; 86901; 86920; 87040; 87070; 87088; 87205; 88305; 88313; 89220; 92610; 92950; 93005; 93010; 93971; 94002; 94003; 94150; 94640; 94667; 94668; 94761; 94762; 96361; 96365; 96367; 96368; 97110; 97162; 97167; 97530; 97535; 99285; 99291; A9270; C9113; J0131; J0171; J0282; J0585; J0610; J1160; J1170; J1200; J1450; J1630; J1650; J1652; J1720; J1940; J2185; J2370; J2405; J2543; J3370; J3475; J3480; J7030; J7040; J7050; J7060; J7070; P9016; P9047; Q9966; Q9967; S0164; XXXXX

== ENCOUNTER 2018-03-16 17:31 | Inpatient (IN) ==
[2018-03-16] MEDS ORDERED: HALDOL IM PRN (18:35)
[2018-03-16] MEDS ORDERED: TYLENOL PR PRN (18:35)
[2018-03-16] MEDS ORDERED: DULCOLAX PR PRN (18:36)
[2018-03-16] MEDS ORDERED: ZOFRAN IV PRN (18:36)
[2018-03-16] MEDS ORDERED: ATROPINE 1 % OPHTH SOLN SL PRN (18:37)
[2018-03-16] MEDS: DUONEB (A & A) INH SCH ×2 (19:00→23:32)
[2018-03-17] MEDS: DILAUDID IV PRN ×5 (01:44→22:55)
[2018-03-17] MEDS: DUONEB (A & A) INH SCH ×6 (03:00→23:50)
[2018-03-17] MEDS: ATIVAN IV PRN ×7 (03:09→22:55)
[2018-03-17] MEDS: TRANSDERM-SCOP TD SCH (07:47)
--- NOTE | 2018-03-17 14:50 | PROGRESS NOTE ---
DATE: 03/17/2018 SUBJECTIVE: The patient is currently sedated. No acute events noted overnight. His family is gathered at the bedside. OBJECTIVE: Vital Signs: Temperature 97.6 degrees, blood pressure 89/49, heart rate 61, respirations 20, O2 saturation is 100% on a trach collar. General: A chronically ill-appearing, elderly male, lying in bed in no acute distress. Heart: S1, S2. Normal. Lungs: Equal air entry bilaterally. No crackles. No rales. Abdomen: Positive bowel sounds. Soft, nontender, nondistended. Extremities: No edema. Neurologic: The patient is sedated. ASSESSMENT: 1. Acute on chronic hypoxemic respiratory failure. 2. Status post percutaneous endoscopic gastrostomy tube placement secondary to oropharyngeal achalasia status post dilation and Botox. 3. Constipation. 4. Hypothyroidism. 5. Idiopathic thrombocytopenic purpura. 6. Left lower extremity deep vein thrombosis. PLAN: Patient is now on comfort measures only. [facility] is following. cc: Lilian Regan MD
[2018-03-18] MEDS: ATIVAN IV PRN ×4 (02:14→20:04)
[2018-03-18] MEDS: DILAUDID IV PRN ×4 (02:14→20:04)
[2018-03-18] MEDS: DUONEB (A & A) INH SCH ×6 (03:13→23:23)
--- NOTE | 2018-03-18 19:00 | PROGRESS NOTE ---
DATE: 03/18/2018 SUBJECTIVE: The patient is resting comfortably. His family is present at the bedside. OBJECTIVE: Vital Signs: Temperature 97.6 degrees, blood pressure 81/42, heart rate 57, respirations 12, O2 saturation 97% on tracheostomy collar. General: This is a chronically ill- appearing elderly male lying in bed in no acute distress. Heart: S1, S2 normal, bradycardic. Lungs: Coarse breath sounds bilaterally. Abdomen: Positive bowel sounds, soft. Extremities: No edema, no cyanosis. Neuro: The patient is sedated. ASSESSMENT: 1. Acute on chronic hypoxemic respiratory failure. 2. Status post percutaneous percutaneous endoscopic gastrostomy tube placement secondary to oropharyngeal achalasia status post dilation and Botox. 3. Constipation. 4. Hypothyroidism. 5. Idiopathic thrombocytopenia. 6. Left lower extremity deep vein thrombosis. 7. Chronic obstructive pulmonary disease. 8. History of laryngeal cancer. PLAN: Continue with comfort measures. The patient's family was updated at the bedside. cc: Lilian Regan MD
[2018-03-19] MEDS: ATIVAN IV PRN ×8 (00:13→22:08)
[2018-03-19] MEDS: DILAUDID IV PRN ×8 (00:13→22:08)
[2018-03-19] MEDS: DUONEB (A & A) INH SCH ×6 (03:13→23:12)
--- NOTE | 2018-03-19 15:09 | PROGRESS NOTE ---
DATE: 03/19/2018 SUBJECTIVE: The patient is resting comfortably in bed. His family is present at the bedside. OBJECTIVE: Vital Signs: Temperature 98.7 degrees, blood pressure 88/61, heart rate 56, respirations 18, O2 saturation is 100% on the trach collar. General: This is a chronically ill- appearing elderly male resting comfortably in no acute distress. Heart: S1, S2 normal. Bradycardic. Lungs: Equal air entry bilaterally. No wheezing. No rales. No rhonchi. Abdomen: Positive bowel sounds. Soft, nontender, nondistended. Extremities: No edema. No cyanosis. ASSESSMENT: 1. [id number] hypoxemic respiratory failure. 2. Status post percutaneous endoscopic gastrostomy tube placement secondary to oropharyngeal achalasia status post dilation and Botox. 3. Constipation. 4. Idiopathic thrombocytopenic purpura. 5. Hypothyroidism. 6. Left lower extremity deep venous thrombosis. 7. Chronic obstructive pulmonary disease. 8. History of laryngeal cancer. 9. Severe protein calorie malnutrition. PLAN: Continue with comfort measures. Palliative Care is following. cc: Lilian Regan MD
[2018-03-20] MEDS: DILAUDID IV PRN ×4 (01:01→10:29)
[2018-03-20] MEDS: ATIVAN IV PRN ×7 (01:03→21:49)
[2018-03-20] MEDS: DUONEB (A & A) INH SCH ×6 (03:30→23:10)
[2018-03-20] MEDS: TRANSDERM-SCOP TD SCH (06:44)
--- NOTE | 2018-03-20 12:48 | PROGRESS NOTE ---
DATE: 03/20/2018 SUBJECTIVE: The patient is resting comfortably. No increased work of breathing noted. OBJECTIVE: Vital Signs: Temperature 98.8 degrees, blood pressure 83/42, heart rate 65, respirations 20, O2 saturation is 97% on the trach collar. General: This is a chronically ill- appearing, comatose male, lying in bed. Heart: S1, S2. Normal. Bradycardic. Lungs: Equal air entry bilaterally. No wheezing. No rales. No rhonchi. Abdomen: Hypoactive bowel sounds. Soft, nontender. Extremities: No edema. No cyanosis. Neurologic: The patient is comatose. ASSESSMENT: 1. Acute on chronic hypoxemic respiratory failure. 2. Status post percutaneous endoscopic gastrostomy tube placement secondary to oropharyngeal achalasia, status post dilation and Botox. 3. Idiopathic thrombocytopenic purpura. 4. Constipation. 5. Hypothyroidism. 6. Left lower extremity deep vein thrombosis. 7. Chronic obstructive pulmonary disease. 8. History of laryngeal cancer. 9. Severe protein calorie malnutrition. PLAN: Continue with comfort measures. Palliative Care is also following. cc: Lilian Regan MD
[2018-03-20] MEDS: DILAUDID IV SCH ×3 (14:45→21:41)
[2018-03-21] MEDS: DILAUDID IV SCH ×9 (01:05→23:08)
[2018-03-21] MEDS: ATIVAN IV PRN ×2 (01:05→04:02)
[2018-03-21] MEDS: DUONEB (A & A) INH SCH ×6 (03:15→23:13)
--- NOTE | 2018-03-21 15:56 | PROGRESS NOTE ---
DATE: 03/21/2018 SUBJECTIVE: Patient is unresponsive. OBJECTIVE: Vital Signs: None. LABORATORY DATA: None. ASSESSMENT AND PLAN: 1. Acute on chronic respiratory failure. 2. Status post peripherally inserted central catheter placement. 3. Hepatic thrombocytopenic purpura. 4. Hypothyroidism. 5. Left lower extremity deep vein thrombosis . 6. Chronic obstructive pulmonary disease. 7. History of laryngeal carcinoma. PLAN: Continue comfort measures only. cc: Bill Joy MD
[2018-03-22] MEDS: DILAUDID IV SCH ×8 (02:07→23:25)
[2018-03-22] MEDS: DUONEB (A & A) INH SCH ×6 (03:10→23:02)
[2018-03-22] MEDS: ATIVAN IV PRN (08:26)
--- NOTE | 2018-03-22 15:25 | PROGRESS NOTE ---
DATE: 03/22/2018 SUBJECTIVE: The patient is unresponsive. OBJECTIVE: Vital signs: Heart rate is 61 with a respiratory rate of 16. HEENT: He is atraumatic, normocephalic. Has a trach around neck. Cardiovascular System: S1, S2. Abdomen: Soft, nontender. Extremities: No evidence of edema. ASSESSMENT: 1. Acute on chronic respiratory failure. 2. Idiopathic thrombocytopenic purpura. 3. Left lower extremity deep vein thrombosis. 4. Chronic obstructive pulmonary disease. 5. History of laryngeal cancer. PLAN: Comfort measures only. cc: Bill Joy MD
[2018-03-23] MEDS: DILAUDID IV SCH ×8 (02:51→23:15)
[2018-03-23] MEDS: DUONEB (A & A) INH SCH ×6 (03:43→23:15)
[2018-03-23] MEDS: TRANSDERM-SCOP TD SCH (08:15)
--- NOTE | 2018-03-23 15:41 | PROGRESS NOTE ---
DATE: 03/23/2018 SUBJECTIVE: The patient is unresponsive. OBJECTIVE: Vital Signs: Heart rate is 65, blood pressure is 70/35, oxygen saturation 94%. HEENT: Atraumatic, normocephalic. Neck: Trach in place. Cardiovascular: S1, S2. Respiratory: No rales or rhonchi noted. Abdomen: Soft, nontender. No masses felt. Extremities: No evidence of edema. LABS: None. ASSESSMENT: 1. Acute on chronic respiratory failure. 2. Idiopathic thrombocytopenic purpura. 3. Left lower extremity deep venous thrombosis. 4. Chronic obstructive pulmonary disease. 5. History of laryngeal cancer. PLAN: Comfort measures only. cc: Bill Joy MD
[2018-03-24] MEDS: DILAUDID IV SCH (01:45)
[2018-03-24] MEDS: DUONEB (A & A) INH SCH (03:15)
[2018-03-24 03:40] VITALS: BP 40/19
--- NOTE | 2018-03-27 15:08 | DISCHARGE SUMMARY ---
ADMISSION DATE: 03/16/2018 DISCHARGE DATE: 03/24/2018 SUMMARY: FINAL DIAGNOSES: 1. Acute respiratory failure. 2. Chronic respiratory failure. 3. Status post tracheostomy. Aspiration pneumonia. 4. Septic shock. 5. Coronary artery disease. 6. Thrombocytopenia. 7. History of deep venous thrombosis left lower extremity. 8. History of lung cancer. 9. History of laryngeal cancer. 10. Severe protein calorie malnutrition. Status post feeding tube placement. HOSPITAL COURSE: Mr. Jeffrey Gutierrez is a 72-year-old male with a very complex medical history. Initially admitted to the hospital because of septic shock as a result of aspiration pneumonia. The patient required antibiotics and also ventilation support via his tracheostomy. He had a feeding tube put in place because of malnutrition. The patient was seen by the Pulmonary as well as the Infectious Disease teams during his hospitalization and was also seen by the Hematology/Oncology team with regards to his hematologic problems. The patient was later transitioned to hospice care with comfort measures only and he subsequently on 03/24/2018. cc: Bill Joy MD
== END 2018-03-24 03:55 | disposition expired | DRG 871 ==
LOC: SUATTDRO 17:31 → 3S 17:31 → 3N 03-17 15:23
PROVIDERS: ATTEND Internal Medicine
CPT/HCPCS: 94640; 94667; 94668; 94761; 94762; A9270; J1170; J2060